=== PATIENT | female | born 1975 | race Caucasian/White ===

== ENCOUNTER 2016-09-19 19:52 | Inpatient (IN) | payer OTHER, MEDICARE ==
[~2016-09-19] VITALS: Ht 167.6 cm; Wt 75.8 kg
--- NOTE | 2016-09-19 20:00 | NUR ---
PT TO ROOM1 BIBA FROM HOME FOR UNRESPONSIVNESS, PT WAS FOUND BY FAMILY, UNKNOWN TIME LAST SEEN NORMAL. WHEN [facility] ARIIVED PT WAS UNRESPONSIVE, BG 25, PT RECEIVED DEXTROSE 25G IV BY [facility]. ARRIVED TO ER UNRESPONSIVE, O2SAT 88% ON NON-REBREATHER. MD MONTSE AT BEDSIDE FOR PT EVAL. HX OF DIABETES.
--- NOTE | 2016-09-19 20:01 | NUR ---
PT MEDICATED WITH NARCAN 2MG IV WITH NO EFFECT. DECISION TO INTUBATE.
--- NOTE | 2016-09-19 20:04 | NUR ---
MD ADRIENNE AND RESP TEAM AT BEDSIDE FOR INTUBATION.
--- NOTE | 2016-09-19 20:16 | NUR ---
PT INTUBATED BY MD ADRIENNE, TUBE #7, TAPED AT 24 TO RIGHT SIDE. CRAMER PLACED, 300ML OF CLEAR YELLOW URINE OBTAINED, SAMPLE SENT TO LAB. BLOOD DRAWN AND SENT TO LAB-2SST,2LAV,CARMNE,BLUE,PINK, 1ST BC. RAD TO BEDSIDE FOR CHEST XRAY.
--- NOTE | 2016-09-19 20:20 | NUR ---
PT TO CAT SCAN
--- NOTE | 2016-09-19 20:21 | ED CRITICAL CARE ---
History of Present Illness General Chief Complaint: General Adult Stated Complaint: UNRESPONSIVE Source: EMS Exam Limitations: clinical condition Vital Signs & Intake/Output Vital Signs & Intake/Output Vital Signs Date Time Temp Pulse Resp B/P B/P Pulse O2 O2 Flow FiO2 Mean Ox Delivery Rate 09/195 109 16 155/78 100 Ventilator /2220 97.4 118 16 163/85 100 Ventilator 05/2203 50 05/0 122 20 141/87 99 Ventilator 05/2113 97.6 123 20 161/89 99 Ventilator 05/2044 50 05/2043 116 20 148/85 99 Ventilator 05/1955 98.3 120 16 168/77 76 Non 100% ReBreather Allergies Coded Allergies: ciprofloxacin (From [facility]) (UNKNOWN 09/19/16) Reconcile Medications Unable to Obtain Home Medication History Triage Note: PT TO ROOM1 BIBA FROM HOME FOR UNRESPONSIVNESS, PT WAS FOUND BY FAMILY, UNKNOWN TIME LAST SEEN NORMAL. Triage Nurses Notes Reviewed? yes Onset: Abrupt Timing: single episode today Injury Environment: home Severity: severe Associated Symptoms: UNRESPONSIVE : No Patient currently breastfeeds: No HPI: 41 year old female found unresponsive at home. Per EMS family called police to do a well check and they found her in severe distress. Last time well is unknown. She was found to be hypoglycemic and given dextrose. Reported history of DM. She was not intubated in the field. Patient obtunded, only responsive to painful stimuli in ED. Not protecting her airway. No reponsive to 2mg IV narcan. Decision made to intubate. Past History Travel History Traveled to [place] past 21 day No Medical History Any Pertinent Medical History? see below for history Endocrine: diabetes Surgical History Surgical History: unobtainable Psychosocial History What is your primary language German Tobacco Use: Refused to answer Illicit Drug Use: unobtainable Family History Hx Contributory? No Review of Systems Review of Systems Constitutional: Reports: see HPI (unobtainable). Physical Exam Physical Exam General Appearance: severe distress, obese, obtunded Head: atraumatic Eyes: Bilateral: other (DILATED, REACTIVE). Neck: normal inspection Respiratory: rhonchi Cardiovascular: tachycardia Peripheral Pulses: 1+ radial (R), 1+ radial (L) Gastrointestinal: soft, no organomegaly Back: normal inspection Extremities: NO MOVEMENT Neurologic/Psych: UNRESPONSIVE, WITHDRAWS FROM PAIN Skin: COOL Core Measures ACS in differential dx? Yes ASA ordered for poss ACS? No-ACS ruled out CVA/TIA Diagnosis: No Severe Sepsis Present: Yes Septic Shock Present: No Progress Differential Diagnoses I considered the following diagnoses in my evaluation of the patient: [cva, respiratory failure, drug overdose, suicide attempt, sepsis, ASPIRATION pneumonia, chf, ] Plan of Care: Orders Procedure Date/time Status Nothing by Mouth 09/20 B Active Patient Data 09/19 2210 Active EKG 09/19 2153 Active Admit to inpatient 09/19 2149 Active Vital Signs 09/19 2149 Active Code Status 09/19 2149 Active Add-on Test (ER Only) 09/19 2121 Active Add-on Test (ER Only) 09/19 2112 Active URINALYSIS 09/19 2110 Complete Add-on Test (ER Only) 09/19 2109 Active BLOOD CULTURE 09/19 2056 Active LOWER RESPIRATORY CULTURE 09/19 2048 Active FingerStick- Glucose 09/20 2027 Active ACETOMINOPHEN 09/19 2024 Complete SALICYLATE 09/19 2024 Complete PHOSPHORUS 09/19 2024 Complete MAGNESIUM 09/19 2024 Complete LACTIC ACID 09/19 2024 Complete HUMAN BETA HCG SCREEN 09/19 2024 Complete CREATINE PHOSPHOKINASE 09/19 2024 Complete EKG 09/19 2009 Active ARTERIAL BLOOD GAS (GEN) 09/19 1958 Active Ho, Insertion/Removal/Asses 09/19 1958 Active CULTURE,URINE 09/19 1958 Active URINE DRUG SCREEN FOR ER ONLY 09/19 1958 Complete TROPONIN LEVEL 09/19 1958 Complete ETHANOL 09/19 1958 Complete COMPREHENSIVE METABOLIC PANEL 09/19 1958 Complete CBC WITHOUT DIFFERENTIAL 09/19 1958 Complete ACETONE 09/19 1958 Complete Current Medications Sig/Yaniv Start time Last Medication Dose Stop Time Status Admin Sodium Chloride 1,000 ML ONCE ONE 09/19 2114 AC 09/19 (Normal Saline 0.9%) 09/20 Laboratory Tests 09/19/162144: pH 7.57 H, pCO2 31 L, pO2 82, HCO3 27, ABG O2 Sat (Measured) 94.0 L, P-50 ( Temp Corrected) N, Carboxyhemoglobin 2.5, O2 Concentration % 50%, Temperature 97.6, Respiration Rate 20, O2 Delivery Method ESPRIT VENT, Vent Mode AC, Expiratory Pressure 5, Tidal Volume 450, Phlebotomy Draw Site RIGHT RADIAL 09/19/162110: Methadone Screen Cancelled, Barbiturate Screen Cancelled, Ur Phencyclidine Scrn Cancelled, Amphetamines Screen Cancelled, U Benzodiazepines Scrn Cancelled, Urine Cocaine Screen Cancelled, Urine Cannabis Screen Cancelled 09/19/162041: Urine Opiates Screen > 4000.00 H, Methadone Screen < 40, Barbiturate Screen < 60, Ur Phencyclidine Scrn < 6.00, Amphetamines Screen < 100, U Benzodiazepines Scrn > 800 H, Urine Cocaine Screen < 50, Urine Cannabis Screen 5.90, Urinalysis MOD H, Urine Color YEL, Urine Clarity CLEAR, Urine pH 7.0, Ur Specific Rector 1.010, Urine Protein NEG, Urine Ketones NEG, Urine Nitrite POS H, Urine Bilirubin NEG, Urine Urobilinogen 0.2, Ur Leukocyte Esterase NEG, Ur Microscopic SEDIMENT EXAMINED, Urine RBC 3-5, Urine WBC 1-3 H, Ur Epithelial Cells RARE, Urine Bacteria FEW H, Urine Hemoglobin MOD H, Urine Glucose NEG 09/19/162024: Anion Gap 18 H, Estimated GFR > 60, BUN/Creatinine Ratio 18.0, Glucose 106 H, Lactic Acid 3.9 H, Calcium 9.1, Phosphorus 4.4, Magnesium 1.9, Total Bilirubin 0.8, AST 42 H, ALT 27, Alkaline Phosphatase 91, Creatine Kinase 135, Troponin I 0.04, Total Protein 7.3, Albumin 3.9, Globulin 3.4, Albumin/Globulin Ratio 1.1, Total Beta HCG NEGATIVE, CBC w Diff MAN DIFF ORDERED, RBC 6.85 H, MCV 82.5, MCH 26.5 L, RDW 17.6 H, MPV 9.1, Gran % 94.5 H, Lymphocytes % 2.3 L, Monocytes % 3.2, Eosinophils % 0, Basophils % 0 L, Absolute Granulocytes 30.9 H, Absolute Lymphocytes 0.8 L, Absolute Monocytes 1.0 H, Absolute Eosinophils 0, Absolute Basophils 0, Platelet Estimate ADEQUATE, Poikilocytosis 2+, Stomatocytes 2+, PUBS MCHC 32.1 L, Salicylates < 1.0, Acetaminophen < 10.0 L, Serum Alcohol < 10.0, Acetone Level NEGATIVE Microbiology 09/19 2129 BLOOD: Blood Culture - RECD 09/19 2041 URINE ROUT: Urine Culture - RECD 09/20 2039 LOWER RESP: Respiratory Culture - RES 09/20 2039 LOWER RESP: Gram Stain - RES 09/19 2014 BLOOD: Blood Culture - RECD Diagnostic Imaging: Viewed by Me: Radiology Read, CT Scan. Discussed w/RAD: Radiology Read, CT Scan. Radiology Impression: PATIENT: RO MELTON PRESENT AGE: 41 PATIENT ACCOUNT NO: [id number] : 76 LOCATION: [facility] ORDERING PHYSICIAN: PAO CONNOR MD SERVICE DATE: 09/19/16 EXAM TYPE: CAT - CT HEAD WO IV CONTRAST EXAMINATION: CT HEAD WITHOUT CONTRAST CLINICAL INFORMATION: Unresponsive. Leftward gaze deviation. COMPARISON: MRI brain 2010. TECHNIQUE: Contiguous axial imaging was performed from the skull base to vertex without intravenous administration of contrast. DLP: 701 mGy-cm FINDINGS: Noncontrast CT imaging of the brain demonstrates diffuse loss of pablo-white matter differentiation within the bilateral cerebral hemispheres, suspicious for underlying anoxic brain injury. No acute intracranial hemorrhage, mass or mass effect or abnormal extra-axial fluid collections are identified. The ventricles are normal in size, without hydrocephalus. The basilar cisterns appear to be grossly patent. No acute calvarial abnormality is identified. The imaged paranasal sinuses and mastoid air cells are well aerated. IMPRESSION: Diffuse loss of pablo-white matter differentiation and diffuse sulcal effacement within the bilateral cerebral hemispheres, concerning for global anoxic brain injury. No acute intracranial hemorrhage, mass or mass effect or abnormal extra-axial fluid collections. This critical result was discussed with Dr. Pao Connor at 10:33 PM on 09/19/2016 and it was ascertained that the content and urgency of the report was understood at the time of direct communication. DICTATED BY: JEEVAN MACHUCA MD DATE/TIME DICTATED:09/19/162225 VEGETABLES COOK:COLIN DATE/TIME TRANSCRIBED:09/19/162225 CONFIDENTIAL, DO NOT COPY WITHOUT APPROPRIATE AUTHORIZATION. <Electronically signed in Other Vendor System> SIGNED BY: JEEVAN MACHUCA MD 09/19/162236, PATIENT: RO MELTON PRESENT AGE: 41 PATIENT ACCOUNT NO: [id number] : 77 LOCATION: [facility] ORDERING PHYSICIAN: PAO CONNOR MD SERVICE DATE: 09/19/162020 EXAM TYPE: CAT - CT ABD & PELVIS W/O IV CONTRAS; CT CHEST WO IV CONTRAST EXAMINATION: CT CHEST WITHOUT CONTRAST CT ABDOMEN PELVIS WITHOUT CONTRAST CLINICAL INFORMATION: Unresponsive COMPARISON: None TECHNIQUE: Multidetector volumetric CT imaging of the chest, abdomen and pelvis was done. Axial MIP volume rendering provided. Sagittal and coronal reformatted images were obtained. DLP: 634.37 mGy-cm FINDINGS: LUNGS: There are bilateral multilobar reticulonodular pulmonary airspace disease, involving the bilateral upper lobes , lingula, right middle lobe, right lower lobe and to lesser extent in the left lower lobe. No pleural effusions. No pneumothorax. MEDIASTINUM: Normal cardiac size. No pericardial effusion. The thoracic aorta and pulmonary arteries are normal in diameter. An endotracheal tube is in place with its tip located about 2.4 cm above the maureen. An enteric tube in place with its tip in the stomach. There is no mediastinal, hilar or axillary adenopathy seen on this noncontrast CT scan. LIVER, GALLBLADDER, AND BILIARY TREE: The noncontrast images of the abdomen demonstrate the liver is normal in size, shape, and attenuation. No focal hepatic lesion or biliary ductal dilatation is present. The gallbladder is unremarkable with no evidence of radiopaque gallstones, gallbladder wall thickening, or obvious pericholecystic inflammatory changes. PANCREAS: Unremarkable. SPLEEN: Unremarkable. ADRENAL GLANDS: Unremarkable. KIDNEYS AND URETERS: The kidneys are normal in size, shape, and attenuation. No hydronephrosis, hydroureter, or calculi seen. No perinephric stranding. BLADDER: The urinary bladder is empty in the presence of indwelling catheter. GASTROINTESTINAL TRACT: The stomach, duodenum, small and large bowel are unremarkable. The appendix is not definitely visualized, however there are no inflammatory changes to suggest acute appendicitis. ABDOMINAL WALL: No significant hernia is appreciated. LYMPH NODES: Normal. VASCULAR: Scattered atherosclerotic calcifications of abdominal aorta and iliac arteries noted. No aneurysmal dilatation. PELVIC VISCERA: The uterus and adnexa are unremarkable. OSSEOUS STRUCTURES: Postsurgical changes at L3-L4 and L4-L5 intervertebral disc spaces with disc spacers in place. There is a 14 mm lytic bony lesion with some sclerotic borders, involving the T5 vertebral body. The finding is better seen on coronal image 80 and sagittal image 64 and axial image 167 from series 4. IMPRESSION: 1. There are endotracheal tube, enteric tube and a Ho catheter in place. 2. Diffuse bilateral multilobar pulmonary airspace disease, can represent pneumonia. Clinical correlation suggested. 3. No acute intra-abdominal findings. 4. A 14 mm bony lesion involving the T5 vertebral body. Its etiology is unclear based on these images. Consider further bone scan evaluation when patient's clinical condition permits. DICTATED BY: REBEKAH SANDOVAL MD DATE/TIME DICTATED: 09/19/162211 VEGETABLES COOK:COLIN DATE/TIME TRANSCRIBED:09/19/162211 CONFIDENTIAL, DO NOT COPY WITHOUT APPROPRIATE AUTHORIZATION. <Electronically signed in Other Vendor System> SIGNED BY: REBEKAH SANDOVAL MD 09/19/162245 Initial ED EKG: SINUS TACHYCARDIA, T WAVE INVERSIONS INFERIOR LEADS Comments: PATIENT: RO MELTON PRESENT AGE: 41 PATIENT ACCOUNT NO: [id number] : 77 LOCATION: [facility] ORDERING PHYSICIAN: PAO CONNOR MD SERVICE DATE: 09/19/16 EXAM TYPE: CAT - CT ABD & PELVIS W/O IV CONTRAS; CT CHEST WO IV CONTRAST EXAMINATION: CT CHEST WITHOUT CONTRAST CT ABDOMEN PELVIS WITHOUT CONTRAST CLINICAL INFORMATION: Unresponsive COMPARISON: None TECHNIQUE: Multidetector volumetric CT imaging of the chest, abdomen and pelvis was done. Axial MIP volume rendering provided. Sagittal and coronal reformatted images were obtained. DLP: 634.37 mGy-cm FINDINGS: LUNGS: There are bilateral multilobar reticulonodular pulmonary airspace disease, involving the bilateral upper lobes, lingula, right middle lobe, right lower lobe and to lesser extent in the left lower lobe. No pleural effusions. No pneumothorax. MEDIASTINUM: Normal cardiac size. No pericardial effusion. The thoracic aorta and pulmonary arteries are normal in diameter. An endotracheal tube is in place with its tip located about 2.4 cm above the maureen. An enteric tube in place with its tip in the stomach. There is no mediastinal, hilar or axillary adenopathy seen on this noncontrast CT scan. LIVER, GALLBLADDER, AND BILIARY TREE: The noncontrast images of the abdomen demonstrate the liver is normal in size, shape, and attenuation. No focal hepatic lesion or biliary ductal dilatation is present. The gallbladder is unremarkable with no evidence of radiopaque gallstones, gallbladder wall thickening, or obvious pericholecystic inflammatory changes. PANCREAS: Unremarkable. SPLEEN: Unremarkable. ADRENAL GLANDS: Unremarkable. KIDNEYS AND URETERS: The kidneys are normal in size, shape, and attenuation. No hydronephrosis, hydroureter, or calculi seen. No perinephric stranding. BLADDER: The urinary bladder is empty in the presence of indwelling catheter. GASTROINTESTINAL TRACT: The stomach, duodenum, small and large bowel are unremarkable. The appendix is not definitely visualized, however there are no inflammatory changes to suggest acute appendicitis. ABDOMINAL WALL: No significant hernia is appreciated. LYMPH NODES: Normal. VASCULAR: Scattered atherosclerotic calcifications of abdominal aorta and iliac arteries noted. No aneurysmal dilatation. PELVIC VISCERA: The uterus and adnexa are unremarkable. OSSEOUS STRUCTURES: Postsurgical changes at L3-L4 and L4-L5 intervertebral disc spaces with disc spacers in place. There is a 14 mm lytic bony lesion with some sclerotic borders, involving the T5 vertebral body. The finding is better seen on coronal image 80 and sagittal image 64 and axial image 167 from series 4. IMPRESSION: 1. There are endotracheal tube, enteric tube and a Ho catheter in place. 2. Diffuse bilateral multilobar pulmonary airspace disease, can represent pneumonia. Clinical correlation suggested. 3. No acute intra-abdominal findings. 4. A 14 mm bony lesion involving the T5 vertebral body. Its etiology is unclear based on these images. Consider further bone scan evaluation when patient's clinical condition permits. DICTATED BY: REBEKHA SANDOVAL MD DATE/TIME DICTATED:09/19/162211 VEGETABLES COOK:COLIN DATE/TIME TRANSCRIBED:09/19/162211 CONFIDENTIAL, DO NOT COPY WITHOUT APPROPRIATE AUTHORIZATION. <Electronically signed in Other Vendor System> SIGNED BY: REBEKAH SANDOVAL MD 09/19/16 3370 Departure Departure Disposition: STILL A PATIENT Condition: Critical Clinical Impression Primary Impression: Respiratory failure Secondary Impressions: Anoxic brain injury, Aspiration pneumonia Referrals: BARBARA VALERIO MD (PCP/Family) Departure Forms: Customer Survey General Discharge Information Prescriptions: Current Visit Scripts Unable to Obtain Home Medication History Admission Note Spoke With: JENS RUFFIN MD Documentation of Exam: Documentation of any treatments & extenuating circumstances including Concerns Regarding Discharge (functional status, medication knowledge or non-compliance, living conditions, etc.) that warrant an admission rather than observation: [ MECHANICAL VENTILATION, ICU MONITOR, IV ABX, NEURO CONSULTATION, MONITOR I/O, F/ U CULTURES, ATTEMPT TO GAIN MORE INFORMATION FROM FAMILY, ] Procedures Intubation Time of Intubation: 2028 Intubation Method: orotracheal Tube Size (cm): 7.0 Medications: succinylcholine, versed Breath Sounds After Intubation: equal Post Intubation Xray? Yes Critical Care Note Critical Care Note Critical Care Time: 75-104 min
--- NOTE | 2016-09-19 20:44 | NUR ---
PT RETURNED FROM CAT SCAN, RESP AT BEDSIDE TO SET UP VENTILATOR.
[2016-09-19 20:59] LABS: ABSOLUTE BASOPHIL COUNT 0 /CUMM (0.0-0.2); ABSOLUTE EOSINOPHIL COUNT 0 /CUMM (0.0-0.7); BASOPHIL % 0 % (0.0-2.0); EOSINOPHIL % 0 % (0-5); MEAN CORPUSCULAR HGB CONC 32.1 G/DL (33.0-37.0)
[2016-09-19 21:08] LABS: ABSOLUTE GRANULOCYTE CT 30.9 /CUMM (1.4-6.5); ABSOLUTE LYMPH COUNT 0.8 /CUMM (1.2-3.4); GRANULOCYTE % 94.5 % (42.2-75.2); HEMATOCRIT 56.5 % (37-47); MEAN CORPUSCULAR HGB 26.5 PG (27.0-31.0); MEAN CORPUSCULAR VOLUME 82.5 FL (81.0-99.0); MEAN PLATELET VOLUME 9.1 FL (7.4-10.4); PLATELET COUNT 368 /CUMM (130-400); RBC DISTRIBUTION WIDTH 17.6 % (11.5-14.5); RED BLOOD CELL CT 6.85 /CUMM (4.20-5.40)
[2016-09-19 21:12] LABS: WHITE BLOOD CELL COUNT 32.8 /CUMM (4.8-10.8)
--- NOTE | 2016-09-19 21:15 | NUR ---
CRITICAL TEST RESULTS [id number] RO MELTON 41 F TESTS AND RESULTS: WBC 32.8 Results received and read back by: VAN BURNS Results received date and time: 09/19/162114 The following provider was notified of the results, and read the results back: MD ADRIENNE Notified date and time: 09/19/16 at 5
--- NOTE | 2016-09-19 21:30 | NUR ---
2ND BC OBTAINED AND SENT TO LAB.
--- NOTE | 2016-09-19 21:47 | NUR ---
CRITICAL TEST RESULTS [id number] RO MELTON 41 F TESTS AND RESULTS: LACTIC ACID 3.9 Results received and read back by: VAN BURNS Results received date and time: 09/19/162146 The following provider was notified of the results, and read the results back: DR DELEON Notified date and time: 09/19/16 at 0
--- NOTE | 2016-09-19 21:48 | NUR ---
NS INFUSING AT 150ML/HR. RESP AT BEDSIDE FOR ABG.
--- NOTE | 2016-09-19 22:15 | NUR ---
[facility] INFUSING PER EMAR. PHARMACY CALLED FOR NARCAN DRIP.
--- NOTE | 2016-09-19 22:37 | CT SCAN REPORT ---
EXAMINATION: CT HEAD WITHOUT CONTRAST CLINICAL INFORMATION: Unresponsive. Leftward gaze deviation. COMPARISON: MRI brain 04/17/2011. TECHNIQUE: Contiguous axial imaging was performed from the skull base to vertex without intravenous administration of contrast. DLP: 701 mGy-cm FINDINGS: Noncontrast CT imaging of the brain demonstrates diffuse loss of pablo-white matter differentiation within the bilateral cerebral hemispheres, suspicious for underlying anoxic brain injury. No acute intracranial hemorrhage, mass or mass effect or abnormal extra-axial fluid collections are identified. The ventricles are normal in size, without hydrocephalus. The basilar cisterns appear to be grossly patent. No acute calvarial abnormality is identified. The imaged paranasal sinuses and mastoid air cells are well aerated. IMPRESSION: Diffuse loss of pablo-white matter differentiation and diffuse sulcal effacement within the bilateral cerebral hemispheres, concerning for global anoxic brain injury. No acute intracranial hemorrhage, mass or mass effect or abnormal extra-axial fluid collections. This critical result was discussed with Dr. Pao Connor at 10:33 PM on 09/19/2016 and it was ascertained that the content and urgency of the report was understood at the time of direct communication.
--- NOTE | 2016-09-19 22:46 | CT SCAN REPORT ---
EXAMINATION: CT CHEST WITHOUT CONTRAST CT ABDOMEN PELVIS WITHOUT CONTRAST CLINICAL INFORMATION: Unresponsive COMPARISON: None TECHNIQUE: Multidetector volumetric CT imaging of the chest, abdomen and pelvis was done. Axial MIP volume rendering provided. Sagittal and coronal reformatted images were obtained. DLP: 634.37 mGy-cm FINDINGS: LUNGS: There are bilateral multilobar reticulonodular pulmonary airspace disease, involving the bilateral upper lobes, lingula, right middle lobe, right lower lobe and to lesser extent in the left lower lobe. No pleural effusions. No pneumothorax. MEDIASTINUM: Normal cardiac size. No pericardial effusion. The thoracic aorta and pulmonary arteries are normal in diameter. An endotracheal tube is in place with its tip located about 2.4 cm above the maureen. An enteric tube in place with its tip in the stomach. There is no mediastinal, hilar or axillary adenopathy seen on this noncontrast CT scan. LIVER, GALLBLADDER, AND BILIARY TREE: The noncontrast images of the abdomen demonstrate the liver is normal in size, shape, and attenuation. No focal hepatic lesion or biliary ductal dilatation is present. The gallbladder is unremarkable with no evidence of radiopaque gallstones, gallbladder wall thickening, or obvious pericholecystic inflammatory changes. PANCREAS: Unremarkable. SPLEEN: Unremarkable. ADRENAL GLANDS: Unremarkable. KIDNEYS AND URETERS: The kidneys are normal in size, shape, and attenuation. No hydronephrosis, hydroureter, or calculi seen. No perinephric stranding. BLADDER: The urinary bladder is empty in the presence of indwelling catheter. GASTROINTESTINAL TRACT: The stomach, duodenum, small and large bowel are unremarkable. The appendix is not definitely visualized, however there are no inflammatory changes to suggest acute appendicitis. ABDOMINAL WALL: No significant hernia is appreciated. LYMPH NODES: Normal. VASCULAR: Scattered atherosclerotic calcifications of abdominal aorta and iliac arteries noted. No aneurysmal dilatation. PELVIC VISCERA: The uterus and adnexa are unremarkable. OSSEOUS STRUCTURES: Postsurgical changes at L3-L4 and L4-L5 intervertebral disc spaces with disc spacers in place. There is a 14 mm lytic bony lesion with some sclerotic borders, involving the T5 vertebral body. The finding is better seen on coronal image 80 and sagittal image 64 and axial image 167 from series 4. IMPRESSION: 1. There are endotracheal tube, enteric tube and a Ho catheter in place. 2. Diffuse bilateral multilobar pulmonary airspace disease, can represent pneumonia. Clinical correlation suggested. 3. No acute intra-abdominal findings. 4. A 14 mm bony lesion involving the T5 vertebral body. Its etiology is unclear based on these images. Consider further bone scan evaluation when patient's clinical condition permits.
--- NOTE | 2016-09-19 22:48 | NUR ---
BED ASSIGNMENT 104-1
--- NOTE | 2016-09-19 23:29 | NUR ---
REPORT CALLED TO BELIN[facility] CARD TO ICU.
[2016-09-20] VITALS: BP 90/60
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
--- NOTE | 2016-09-20 01:03 | RADIOLOGY REPORT ---
EXAMINATION: XR PORTABLE CHEST CLINICAL INFORMATION: Intubated. Orogastric tube position. COMPARISON: 09/19/2016 TECHNIQUE: Portable frontal view of the chest was obtained. FINDINGS: The endotracheal tube terminates approximately 5 cm above the maureen. The enteric tube extends into the stomach, with the side-port in the stomach. Cardiac leads overlie the chest. Patchy opacities are seen in the right upper lung. The other opacity seen on the recent chest CT are not as well-defined. No pleural effusion or pneumothorax. The cardiomediastinal silhouette is within normal limits. IMPRESSION: 1. Endotracheal tube 5 cm above the maureen. Enteric tube terminates in the stomach. 2. Patchy right upper lung airspace opacity, as seen on prior CT. The remaining airspace opacity seen on the CT are not as well-defined on the current radiograph.
[2016-09-20 04:55] LABS: ABSOLUTE BASOPHIL COUNT 0 /CUMM (0.0-0.2); ABSOLUTE EOSINOPHIL COUNT 0 /CUMM (0.0-0.7); ABSOLUTE GRANULOCYTE CT 29.3 /CUMM (1.4-6.5); ABSOLUTE LYMPH COUNT 1.7 /CUMM (1.2-3.4); ABSOLUTE MONOCYTE COUNT 0 /CUMM (0.10-0.60); BASOPHIL % 0 % (0.0-2.0); EOSINOPHIL % 0.1 % (0-5); GRANULOCYTE % 94.2 % (42.2-75.2); MEAN CORPUSCULAR HGB 27.1 PG (27.0-31.0); MEAN CORPUSCULAR HGB CONC 32.9 G/DL (33.0-37.0); MEAN CORPUSCULAR VOLUME 82.3 FL (81.0-99.0); MEAN PLATELET VOLUME 8.9 FL (7.4-10.4); PLATELET COUNT 253 /CUMM (130-400); RBC DISTRIBUTION WIDTH 17.3 % (11.5-14.5); RED BLOOD CELL CT 5.48 /CUMM (4.20-5.40)
--- NOTE | 2016-09-20 05:02 | Admission Certification ---
Admission Certification Certification Statement - As attending physician, I certify that at the time of - admission, based on clinical presentation, severity of - symptoms, need for further diagnostic testing and - therapeutic interventions, and risk of adverse outcomes - without in-hospital treatment, in my clinical assessment, - this patient requires an acute hospital stay for a minimum - of two nights or longer. I have also considered psychsocial - factors such as support system, advanced age, financial - issues, cognitive issues, and failed out-patient treatments, - past re-admission history, safety of patient, and lack of - compliance as applicable. Specific rationale supporting this admission is: Acute respiratory failure, coma
[2016-09-20 05:23] LABS: HEMATOCRIT 45.1 % (37-47); WHITE BLOOD CELL COUNT 31.1 /CUMM (4.8-10.8)
--- NOTE | 2016-09-20 07:44 | RADIOLOGY REPORT ---
EXAMINATION: XR PORTABLE CHEST CLINICAL INFORMATION: Intubation. COMPARISON: Chest x-ray dated 09/20/2016. CT scan of the chest dated 09/19/2016. TECHNIQUE: Portable AP erect view of the chest was obtained. FINDINGS: Endotracheal tube is in place with tip 6 cm above the maureen. Enteric tube courses into the abdomen with tip not fully visualized. The cardiomediastinal silhouette is within normal limits in size. Low lung volumes are seen with persistent patchy parenchymal opacity in the right upper lobe and to a lesser extent in the left upper lobe and right lower lobe. No effusion or pneumothorax is seen. Bony structures are unremarkable. IMPRESSION: 1. Multifocal lung parenchymal opacities again noted, unchanged. 2. Endotracheal tube tip 6 cm above the maureen. 3. Enteric tube tip not fully visualized but extends into the left upper quadrant.
[2016-09-20 08:00] VITALS: BP 102/72
--- NOTE | 2016-09-20 08:56 | Cons- CRCU ---
JULIUS ADAM 09/20/16 0856: General Information and HPI Consulting Request Date of Consult: 09/20/16 Requested By: Dr. Ozuna Exam Limitations: unable to give history, clinical condition History of Present Illness: She is 41-year-old woman with past medical history of diabetes, hypertension, gastroparesis and depression was BIBA after she was found unresponsive at home. She takes care of her quadriplegic who has also been admitted on general medicine floor for possible neglect and UTI. did not provide much information to admitting team but said that she was not feeling well for past 2 weeks and throwing up. Police found her obtunded, on couch covered in her own vomitus. Blood sugar 25 at site and she was given 25G of iv dextrose by EMS. Vitals on arrival afebrile, HR 120, RR 16, blood pressure 168/77, O2 saturation 88% on nonrebreather. She was given 2 mg IV Narcan without any effect and was immediately intubated in ER. Currently she is intubated and unable to provide any history. Allergies/Medications Allergies: Coded Allergies: ciprofloxacin (From CIPRO) (UNKNOWN 09/19/16) Current Medications: Current Medications Sig/Yaniv Start time Last Medication Dose Route Stop Time Status Admin Albuterol Sulfate 3 ML BID 09/20 2200 AC 09/20 INH 1209 Ampicillin Sodium/ 1,500 MG Q6 09/20 0600 AC 09/20 Sulbactam Sodium IV 1210 Sodium Chloride 100 ML Ampicillin Sodium/ 0 .STK-MED ONE 09/19 2145 DC Sulbactam Sodium .ROUTE Ampicillin Sodium/ 3,000 MG ONCE ONE 09/19 2029 DC 09/19 Sulbactam Sodium IV 09/19 2058 2130 Sodium Chloride 100 ML Dextrose 25 GM ONCE ONE 09/20 0030 DC 09/20 IV 09/20 0031 0015 Dextrose/Sodium 1,000 ML Q10H 09/20 1145 AC / Chloride IV 1210 Dextrose/Sodium 1,000 ML Q13H 09/20 0030 AC / Chloride IV 0053 Enoxaparin Sodium 40 MG DAILY 09/21 1000 AC SC Etomidate 0 .STK-MED ONE 09/19 2048 DC IV Etomidate 20 MG ONCE ONE 09/19 2029 DC 05 IV 09/19 Levetiracetam 750 MG Q12 05/ 1000 AC 05/ Sodium Chloride 100 ML IV 1210 Magnesium Sulfate 1 GM Q2H 09/20 0530 DC 09/20 Dextrose/Water 100 ML IV 09/20 0929 0831 Midazolam HCl 5 MG ONCE ONE 09/19 2030 DC 05/06 IV 09/19 Naloxone HCl 4 MG Q24H / 0900 DC Sodium Chloride 1,000 ML IV Naloxone HCl 0.4 MG ONCE ONE 09/20 0845 DC 05/ IV 09/20 0846 0830 Naloxone HCl 4 MG Q24H / 2130 DC Dextrose/Water 1,000 ML IV Naloxone HCl 0 .STK-MED ONE 09/19 2000 DC .ROUTE Naloxone HCl 2 MG ONCE ONE 09/20 1999 DC 09/19 IV 09/19 Pantoprazole Sodium 40 MG DAILY 09/20 1000 DC IV Pantoprazole Sodium 40 MG BID / 1000 AC / IV 1122 Potassium Chloride 10 MEQ Q1H 09/20 0530 DC 09/20 IV 09/20 0631 0714 Potassium Chloride 60 MEQ ONCE ONE 09/20 0030 DC 05/ PO / 0031 0537 Potassium Chloride 10 MEQ Q1H / 2345 DC 05/ IV 09/20 0046 0214 Potassium Chloride 10 MEQ ONCE ONE 09/19 2200 DC 05/ IV / 2201 2215 Potassium Phosphate 15 mMol ONE ONE 09/20 0530 CAN Sodium Chloride 250 ML IV / 0933 Sodium Chloride 1,000 ML ONCE ONE 09/20 0615 AC 05/ IV 09/20 1254 0645 Sodium Chloride 1,000 ML BOLUS ONE 09/20 0600 CAN IV 09/20 0659 Sodium Chloride 500 ML BOLUS ONE 09/20 0315 CAN IV / 0414 Sodium Chloride 1,000 ML BOLUS ONE 09/20 0315 DC 05/ IV / 0414 0320 Sodium Chloride 1,000 ML Q13H / 0015 DC IV Sodium Chloride 1,000 ML BOLUS ONE 09/19 2200 DC 05/ IV / 2259 2157 Sodium Chloride 1,000 ML ONCE ONE 09/19 2115 DC 05/06 IV 05/07 0354 2148 Sodium Phosphate 15 mMol ONCE ONE 09/20 0615 DC 05/07 Dextrose/Water 250 ML IV 05/ 1014 1122 Succinylcholine 100 MG ONCE ONE 09/19 2029 DC /06 Chloride IV 09/19 Vecuronium [place] 0 .STK-MED ONE 09/19 2048 DC IV Vecuronium [place] 10 MG ONCE ONE 09/19 2029 DC 05/06 IV /2030 Review of Systems Review of Systems Constitutional: Reports: see HPI. Past History Travel History Traveled to [place] past 21 day No Medical History Endocrine: diabetes Surgical History Surgical History: laminectomy Psychosocial History Where Do You Live? Home Smoking Status: Former Smoker Exam & Diagnostic Data Last 24 Hrs of Vital Signs/I&O Vital Signs Date Time Temp Pulse Resp B/P B/P Pulse O2 O2 Flow FiO2 Mean Ox Delivery Rate 09/20 0832 40 09/20 0545 40 09/20 0400 98 Ventilator 40% 09/20 0304 40 09/20 0005 50 05/ 0000 99 Ventilator 50% / 0000 97.8 109 16 90/60 99 Ventilator 50% / 2311 99.6 114 16 131/77 100 Ventilator / 2245 109 16 155/78 100 Ventilator / 2221 97.4 118 16 163/85 100 Ventilator 05/06 2204 50 05/06 2200 122 20 141/87 99 Ventilator /06 2114 97.6 123 20 161/89 99 Ventilator /06 5 50 05/06 2044 116 20 148/85 99 Ventilator /06 1956 98.3 120 16 168/77 76 Non 100% ReBreather Intake & Output 09/20 1600 09/20 0800 05/ 0000 Intake Total 1933 1000 Output Total 904 Balance 1029 1000 Intake, IV 1933 1000 Number 1 Bowel Movements Output, 650 Gastric Drainage Output, Urine 254 Patient 168 lb Weight Weight Bed scale Measurement Method Physical Exam General Appearance: intubated, OG tube in place Head: normal appearance Eyes: Bilateral: other (fixed and dilated). Neck: supple Respiratory: decreased breath sounds, crackles Cardiovascular: regular rate/rhythm Gastrointestinal: soft Extremities: no edema Neurologic/Psych: extremities twitching. complete neuro exam could not be done because of clinical condition Last 48 Hrs of Labs/[place]: Laboratory Tests 09/20/16 1155: Troponin I Pending 09/20/16 1155: Lactic Acid Pending 09/20/16 1155: Sodium Pending, Potassium Pending, Chloride Pending, Carbon Dioxide Pending, Anion Gap Pending, BUN Pending, Creatinine Pending, Glucose Pending, Calcium Pending, Phosphorus Pending, Magnesium Pending, Total Bilirubin Pending, AST Pending, ALT Pending, Albumin Pending, CBC w Diff Pending, WBC Pending, RBC Pending, Hgb Pending, Hct Pending, MCV Pending, MCH Pending, RDW Pending, Plt Count Pending, MPV Pending, PUBS MCHC Pending 09/20/16 0745: Lactic Acid 2.3 H 09/20/16 0700: pH 7.52 H, pCO2 35, pO2 96, HCO3 28, ABG O2 Sat (Measured) 98.0, P-50 (Temp Corrected) N, Carboxyhemoglobin 1.0 L, O2 Concentration % .40, Respiration Rate 16, O2 Delivery Method VENT, Vent Mode A/C, Expiratory Pressure 8, Tidal Volume 450, Phlebotomy Draw Site RIGHT RADIAL 09/20/16 0600: Sodium Cancelled, Potassium Cancelled, Chloride Cancelled, Carbon Dioxide Cancelled, Anion Gap Cancelled, BUN Cancelled, Creatinine Cancelled, BUN/ Creatinine Ratio Cancelled 09/20/16 0430: Troponin I 0.05 09/20/16 0430: Anion Gap 11, Estimated GFR > 60, Glucose 87, Calcium 7.5 L, Phosphorus 3.4, Magnesium 1.6, Total Bilirubin 0.8, AST 48 H, ALT 28, Albumin 2.5 L, CBC w Diff NO MAN DIFF REQ, RBC 5.48 H, MCV 82.3, MCH 27.1, RDW 17.3 H, MPV 8.9, Gran % 94.2 H, Lymphocytes % 5.6 L, Monocytes % 0.1 L, Eosinophils % 0.1, Basophils % 0 L, Absolute Granulocytes 29.3 H, Absolute Lymphocytes 1.7, Absolute Monocytes 0 L, Absolute Eosinophils 0, Absolute Basophils 0, PUBS MCHC 32.9 L 09/20/16 0145: pH 7.54 H, pCO2 34 L, pO2 114 H, HCO3 28, ABG O2 Sat (Measured) 99.0, P-50 ( Temp Corrected) N, Carboxyhemoglobin 1.5, O2 Concentration % .50, Respiration Rate 16, O2 Delivery Method VENT, Vent Mode A/C, Expiratory Pressure 8, Tidal Volume 450, Phlebotomy Draw Site RIGHT RADIAL 09/20/16 0130: Lactic Acid 3.3 H 09/19/162144: pH 7.57 H, pCO2 31 L, pO2 82, HCO3 27, ABG O2 Sat (Measured) 94.0 L, P-50 ( Temp Corrected) N, Carboxyhemoglobin 2.5, O2 Concentration % 50%, Temperature 97.6, Respiration Rate 20, O2 Delivery Method ESPRIT VENT, Vent Mode AC, Expiratory Pressure 5, Tidal Volume 450, Phlebotomy Draw Site RIGHT RADIAL 09/19/162110: Methadone Screen Cancelled, Barbiturate Screen Cancelled, Ur Phencyclidine Scrn Cancelled, Amphetamines Screen Cancelled, U Benzodiazepines Scrn Cancelled, Urine Cocaine Screen Cancelled, Urine Cannabis Screen Cancelled 09/19/162041: Urine Opiates Screen > 4000.00 H, Methadone Screen < 40, Barbiturate Screen < 60, Ur Phencyclidine Scrn < 6.00, Amphetamines Screen < 100, U Benzodiazepines Scrn > 800 H, Urine Cocaine Screen < 50, Urine Cannabis Screen 5.90, Urinalysis MOD H, Urine Color YEL, Urine Clarity CLEAR, Urine pH 7.0, Ur Specific [place] 1.010, Urine Protein NEG, Urine Ketones NEG, Urine Nitrite POS H, Urine Bilirubin NEG, Urine Urobilinogen 0.2, Ur Leukocyte Esterase NEG, Ur Microscopic SEDIMENT EXAMINED, Urine RBC 3-5, Urine WBC 1-3 H, Ur Epithelial Cells RARE, Urine Bacteria FEW H, Urine Hemoglobin MOD H, Urine Glucose NEG 09/19/162024: Anion Gap 18 H, Estimated GFR > 60, BUN/Creatinine Ratio 18.0, Glucose 106 H, Lactic Acid 3.9 H, Calcium 9.1, Phosphorus 4.4, Magnesium 1.9, Total Bilirubin 0.8, AST 42 H, ALT 27, Alkaline Phosphatase 91, Creatine Kinase 135, Troponin I 0.04, Total Protein 7.3, Albumin 3.9, Globulin 3.4, Albumin/Globulin Ratio 1.1, Total Beta HCG NEGATIVE, CBC w Diff MAN DIFF ORDERED, RBC 6.85 H, MCV 82.5, MCH 26.5 L, RDW 17.6 H, MPV 9.1, Gran % 94.5 H, Lymphocytes % 2.3 L, Monocytes % 3.2, Eosinophils % 0, Basophils % 0 L, Absolute Granulocytes 30.9 H, Absolute Lymphocytes 0.8 L, Absolute Monocytes 1.0 H, Absolute Eosinophils 0, Absolute Basophils 0, Platelet Estimate ADEQUATE, Poikilocytosis 2+, Stomatocytes 2+, PUBS MCHC 32.1 L, Salicylates < 1.0, Acetaminophen < 10.0 L, Serum Alcohol < 10.0, Acetone Level NEGATIVE Assessment/Plan Impression/Plan: She is 41-year-old woman with past medical history of diabetes, hypertension, gastroparesis and depression was BIBA after she was found unresponsive and covered in her vomitus at home. She was admitted in ICU for acute hypoxic respiratory failure secondary to most likely Drug overdose (she was taking valium, morphine and flexerel at home), possible aspiration pneumonia, hypoglycemia and anoxic brain injury. Currently she is intubated and completely unresponsive. She started having muscular twitching and seizure this morning and she was started on Keppra. She is also getting IV fluids, Unasyn and PPIs. PLAN * Monitor vitals closely. We'll continue mechanical ventilation * Continue IV fluids, PPI and antibiotics * Follow-up blood and urine cultures * Accu-Cheks every 2 hours * Neuro consult * Monitor electrolytes closely and replete accordingly * Seizure precautions * Aspiration precautions * Continue IV Keppra * Trend lactic acid * Prognosis poor Consult Acknowledgment - Thank you for your consult request. AUGUSTIN MIRZA,[facility] 09/20/16 0901: Assessment/Plan Other Findings/Comments: Seen and examined independently History unobtainable Exam as noted above Vital signs reviewed Blood sugars have been more than 90 since admission Pupils were dilated not responding Nystagmus noted Neck was supple no JVD Chest decreased breath sounds with crackles Abdominal exam soft nontender very faint bowel sounds No cyanosis clubbing Orogastric tube did show bloody discharge Neurological exam patient unresponsive even to deep painful stimuli pupils as noted above was having myoclonic jerks on both sides not moving any extremities she did have some decorticate posture at times noted patient does have a cough reflex and does have spontaneous breathing Significant data reviewed This is an unfortunate 41-year-old lady with history of diabetes, previous gastroparesis, hypertension, chronic low back pain with previous laminectomy, GERD, urinary incontinence, patient was apparently on morphine and diazepam every month, significant smoking history. History as noted in the history and physical. Patient apparently was not found to be response to 2 husbands call and she was unresponsive for unknown period of time. IMPRESSION This is a lady with multiple medical problems including diabetes, complications from diabetes including gastroparesis per history, but pressure history, chronic low back pain, migraine, urinary incontinence, GERD, narcotic use and benzodiazepine use followed by pain Center per the history noted in the house staff's note now comes in with Significant decreased mental status with comatose condition with profound hypoglycemia now with significant anoxic brain injury as noted in the CAT scan and physical exam. Patient did not really respond to Narcan. Differential diagnoses include hypoglycemia from her diabetes medication versus benzodiazepine overdose versus narcotic overdose intentionally on a nonintentional is unknown at this time. Vomiting with aspiration pneumonia leading to hypoxic brain injury as well as a possibility Respiratory failure related to severe anoxic brain injury Significant vomiting upon admission or prior to admission with aspiration pneumonitis History of diabetes, hypertension, significant hypokalemia, gastroparesis Previous history of low back pain and depression 14 mm bony lesion and T5 vertebral body which needs to be followed in the future Previous narcotic use Significant history of gastroparesis now with the coffee ground material coming from orogastric tube in a lady with previous history of gastroparesis REC Continue mechanical ventilator Narcan drip for 1-2 hours to see whether there is any response and then subsequently will discontinue Continue D5 normal saline at 100 mL an hour Check her sodium and potassium again in the next 4 hours to make sure that she does not go through hyponatremia to prevent brain edema Check fingerstick every 2 hours Watch for any seizure Neurology evaluation If her OG tube secretions turned more bloody call GI to see Watch her hemoglobin and hematocrit Aggressively replace potassium intravenously with 2 large-bore IVs Please put in 2 large-bore IVs for fluid resuscitation Keep the head of bed elevated Aggressive oral suctioning Reduce PEEP to 5 Continue current mechanical ventilator settings and check ABG this evening to keep her pH around 7.50 Watch blood glucose and only cover with low-dose short-acting insulin if the sugar is more than 200-300 consistently. Periodex oral care 3 times a day We will follow. Patient is critically ill total time spent 60 minutes. Not an appropriate candidate for hypothermia protocol as data is very limited in patients like her Consult Acknowledgment - Thank you for your consult request.
--- NOTE | 2016-09-20 09:13 | NUR ---
11-7 SHIFT NOTE 0000 UNRESPONSIVE PATIENT ADMITTED TO CRCU 104 FROM ER VIA STRETCHER, PUPILS EQUAL AT 6MM AND SLUGGISHLY REACTIVE TO LIGHT- WHITISH HAZE REFLECTION NOTED TO LIGHT, ? CATARACTS, POSTURING OF UPPER EXTREMITIES NOTED IN RESPONSE TO STIMULI- LUE MORE THAN RUE, ETT TO VENTILATOR AY FIO2 50%- CONTINUOUS O2 SAT 99 TO 100%, COPIOUS ORAL SECRETIONS SUCTIONED PRN, BREATHE SOUNDS UPPER CHAVEZ RHONCHORUS- R>L, CLEAR AT BASES, ABDOMEN DISTENDED BUT SOFT- OGT TO LOW INTERMITTENT WALL SUCTION- LARGE AMTS LIQUID BROWN DRAINAGE NOTED, ACCOUNT SERVICE REPRESENTATIVE SINUS TACHYCARDIA WITH HEART RATE 100 TO 110'S/MIN, CRAMER TO GRAVITY DRAINAGE WITH CLEAR MARCUS COLORED UO NOTED 0015 ACCUCHECK <50 - DR MCKEON NOTIFIED, ONE AMP D50 GIVEN IV ORDERED 1.75 INCH X .75 INCH BLANCHABLE OVALS NOTED AT TOP OF RIGHT AND LEFT BUTTOCKS- SPECIALTY BED IN USE, WHITE METAL NIPPLE AND CLITORIS PIERCINGS IN PLACE, DR MCKEON IN AT BEDSIDE- DR AWARE OF SYSTOLIC BP 90-100/ 0030 PORTABLE CXR DONE TO CHECK ETT AND OGT PLACEMENT 0045 REPEAT ACCUCHECK 180, NO FAMILY/FRIENDS PRESENT ON CRCU ADMISSION, LIMITED INFORMATION AVAILABLE FROM MD NOTES, ADMISSION QUESTIONNAIRES COMPLETED WITHIN LIMITATIONS [address] BROUSSARD- HAS STATED THAT BLANCHABLE AREAS TO BUTTOCKS PALER THAN WHEN PATIENT SEEN IN ER, DR AWARE OF PATIENT'S CURRENT STATUS- ONE LITER NS TO BE GIVEN IV BOLUS DUE TO POOR UO 0530 AM LABWORK RESULTS REPORTED TO DR MCKEON- PATIENT TO RECEIVE POTASSIUM AND MAGNESIUM REPLACEMENTS ORDERED PLUS INCREASED IV FLUIDS 0630 REPEAT ABG'S AND CXR DONE, PUPILS AT 4MM AND FIXED THIS AM, POSTURING OF UPPER EXTREMITIES HAS LESSENED GREATLY, AWAITING AM MD ROUNDS
[2016-09-20 12:00] VITALS: BP 110/60
[2016-09-20 12:15] LABS: ABSOLUTE BASOPHIL COUNT 0 /CUMM (0.0-0.2); ABSOLUTE EOSINOPHIL COUNT 0 /CUMM (0.0-0.7); ABSOLUTE GRANULOCYTE CT 22.5 /CUMM (1.4-6.5); ABSOLUTE LYMPH COUNT 1.8 /CUMM (1.2-3.4); ABSOLUTE MONOCYTE COUNT 0.7 /CUMM (0.10-0.60); BASOPHIL % 0.1 % (0.0-2.0); EOSINOPHIL % 0 % (0-5); HEMATOCRIT 42.6 % (37-47); MEAN CORPUSCULAR HGB 26.6 PG (27.0-31.0); MEAN CORPUSCULAR HGB CONC 32.5 G/DL (33.0-37.0); MEAN CORPUSCULAR VOLUME 81.8 FL (81.0-99.0); PLATELET COUNT 250 /CUMM (130-400); RBC DISTRIBUTION WIDTH 17.5 % (11.5-14.5); RED BLOOD CELL CT 5.21 /CUMM (4.20-5.40)
--- NOTE | 2016-09-20 13:41 | Cons- Neurology ---
General Information and HPI Consulting Request Date of Consult: 09/20/16 Requested By: MINA FENG MD History of Present Illness: 41 year old female with history of diabetes, hypertension, chronic low back pain and depression who was found down covered in vomit. Initial blood sugar was felt to be less than 25. Brief seizure activity was reported and patient has been started on Keppra. Toxicology is positive for opioids and benzodiazepines. CAT scan of the brain shows loss of the pablo-white junction concerning for global hypoxia. History is obtained entirely from the chart as the patient is comatose. Per , she had been suffering from nausea and diminished oral intake over the course of several weeks. Allergies/Medications Allergies: Coded Allergies: ciprofloxacin (From CIPRO) (UNKNOWN 09/19/16) Review of Systems Review of Systems: Unobtainable Past History Travel History Traveled to [place] past 21 day No Medical History Cardiovascular: hypertension Gastrointestinal: GERD, GASTROPARESIS Renal: URINARY INCONTINENCE Musculoskeletal: CHRONIC LOWER BACK PAIN Endocrine: diabetes Surgical History Surgical History: laminectomy Psychosocial History Where Do You Live? Home Smoking Status: Current Everyday Smoker Exam & Diagnostic Data Vital Signs and I&O Vital Signs Date Time Temp Pulse Resp B/P B/P Pulse O2 O2 Flow FiO2 Mean Ox Delivery Rate 09/20 1222 Ventilator 35% 09/20 1220 35 / 0832 40 / 0545 40 / 0400 98 Ventilator 40% 09/20 0304 40 05/ 0005 50 05/07 0000 99 Ventilator 50% 05/07 0000 97.8 109 16 90/60 99 Ventilator 50% 05/ 2311 99.6 114 16 131/77 100 Ventilator 05/ 2245 109 16 155/78 100 Ventilator 05/06 2221 97.4 118 16 163/85 100 Ventilator 05/06 2204 50 05/06 2200 122 20 141/87 99 Ventilator 05/06 2114 97.6 123 20 161/89 99 Ventilator 05/06 2045 50 05/06 2044 116 20 148/85 99 Ventilator 05/06 1956 98.3 120 16 168/77 76 Non 100% ReBreather Intake & Output 09/20 1600 09/20 0800 05/07 0000 Intake Total 1933 1000 Output Total 904 Balance 1029 1000 Intake, IV 1933 1000 Number 1 Bowel Movements Output, 650 Gastric Drainage Output, Urine 254 Patient 168 lb Weight Weight Bed scale Measurement Method Middle-aged intubated female in the intensive care unit. The head was normocephalic and atraumatic. There was no response to verbal command or sternal rub. Pupils were 3 mm, equal but poorly reactive. Corneal reflexes were present. The oculocephalic reflex was present. There were no spontaneous movements of the extremities. Bilateral Babinski signs were present. Assessment/Plan Assessment: The clinical picture suggests hypoxic encephalopathy with coma partially impaired brainstem reflexes and bilateral Babinski signs. Brief seizure activity was reported. Recommendations: Supportive care for present. Would avoid all sedative hypnotics. EEG should be performed tomorrow for consideration of nonconvulsive status. Continue Keppra. Prognosis guarded. I have preliminarily discussed our findings with her sister and [id number] at the bedside. Neurology will be able to follow along with the ICU team. Please feel free to call with any further questions. Consult Acknowledgment - Thank you for your consult request.
--- NOTE | 2016-09-20 15:12 | Event Note ---
Event Note Event Note: S: Establishing next of care of patient. This afternoon it was mentioned that the patient's may not legally be her . Although the patient and her who is currently admitted in the general medicine service did have a ceremony it is unclear whether this has been legally registered. B: The sister of the patient who lives in [place] arrived this morning and was really concerned about the state of her sister. A/R: After spending considerable amount of time with the patient's sister Jennifer and Urban,it appears that if the patient was legally not , the next of kin would technically be her sister. She's been informed of progress and updated on current management. Sister and Brother in Law, Urban and Jennifer Keenan can be reached on: [phone].
[2016-09-20 16:00] VITALS: BP 162/84
[2016-09-20 20:00] VITALS: BP 144/78
[2016-09-21] VITALS: BP 126/70; BP 189/80
--- NOTE | 2016-09-21 03:30 | NUR ---
0000 REC'D PT IN BED REMAINS UNRESPONSIVE & INTUBATED. VENTED ON AC MODE W/RATE 14/ VT 450/FIO2 35%/PEEP 5. POX 96-100%, LS CLEAR & DIMINISHED AT BASES. SCANT AMT OF [place]UMMOND SECRETIONS VIA ETT. ORALLY SUCTIONED/MOUTH CARE DONE. MOUTH BLOCK IN PLACE. ST ON THE MONITOR HR 110-120'S, SBP VARIES AUTO 120-180'S & CORRELATING TO BOTH CUFFS. BUT WHEN PT STIFFENS/POSTURING SBP TENDS TO INCREASE. NO PURPOSEFUL MOVT. BABINSKI+VE. PUPILS FIXED DILATED 6MM. FC INSITU & DRAINING BORDERLINE U/O OF MARCUS IN COLOR. OGT INSITU & DRAINING COFFEE GROUND D/C IN THE CANNISTER. K 2.3 PHOS 3.3, REPLETED W/K & NA PHOS IV BOLUS. ANY PHYSICAL T&P PT STARTS TO POSTURE/DECORATE ON A TOTAL CARE BED W/ROTATIONAL MODE. ACCUCHECK Q2HR @0000-245 & [address] MCKEON RE. PT'S STATUS/VS. ORDERS FOR INSULIN COVERAGE SEE EMAR. 0330 CALLED [employer] & SPOKE TO BILL THE COORDINATOR. WILL CALL BACK.
[2016-09-21 06:48] LABS: ABSOLUTE BASOPHIL COUNT 0 /CUMM (0.0-0.2); ABSOLUTE EOSINOPHIL COUNT 0 /CUMM (0.0-0.7); ABSOLUTE GRANULOCYTE CT 17.5 /CUMM (1.4-6.5); ABSOLUTE LYMPH COUNT 1.9 /CUMM (1.2-3.4); ABSOLUTE MONOCYTE COUNT 0.7 /CUMM (0.10-0.60); BASOPHIL % 0.2 % (0.0-2.0); EOSINOPHIL % 0.2 % (0-5); GRANULOCYTE % 86.6 % (42.2-75.2); HEMATOCRIT 39.7 % (37-47); MEAN CORPUSCULAR HGB 27.2 PG (27.0-31.0); MEAN CORPUSCULAR HGB CONC 32.7 G/DL (33.0-37.0); MEAN CORPUSCULAR VOLUME 83.1 FL (81.0-99.0); MEAN PLATELET VOLUME 9.1 FL (7.4-10.4); PLATELET COUNT 220 /CUMM (130-400); RBC DISTRIBUTION WIDTH 18.3 % (11.5-14.5); RED BLOOD CELL CT 4.78 /CUMM (4.20-5.40); WHITE BLOOD CELL COUNT 20.2 /CUMM (4.8-10.8)
--- NOTE | 2016-09-21 06:56 | PN- Resident CRCU ---
Subjective HPI/CRCU Issues: Ms Bowen was seen and examined this morning. She is resting comfortably in bed. She is currently intubated today is day two. Sister has been at bedside overnight. 24 Hour Events: No Events Reported ovenight. Objective Vital Signs & I&O Last 8 Hrs of Vitals and I&O: Intake & Output 09/21 1600 Intake Total 1370 Output Total 450 Balance 920 Intake, IV 1370 Number 1 Bowel Movements Output, Urine 450 Patient 75.835 kg Weight Exam General Appearance: well developed/nourished, no apparent distress, comfortable, intubated Neck: normal inspection Respiratory: normal breath sounds Cardiovascular: regular rate/rhythm Gastrointestinal: normal bowel sounds, soft, non-tender Extremities: normal inspection Cranial Nerves: PERRL (Sluggish), Corneal Reflex + Gag Reflex present on suction , Babinski +, Dolls Eyes Intact Skin: intact Skin Temp/Moisture Exam: Warm/Dry Current Medications: Current Medications Sig/Yaniv Start time Last Medication Dose Route Stop Time Status Admin Albuterol Sulfate 3 ML BID 09/20 2200 AC 09/21 INH 0922 Ampicillin Sodium/ 1,500 MG Q6 09/20 0600 AC /08 Sulbactam Sodium IV 1307 Sodium Chloride 100 ML Dextrose/Sodium 1,000 ML Q10H 09/20 1145 DC 05/07 Chloride IV 1210 Dextrose/Sodium 1,000 ML Q13H / 0030 DC 05/07 Chloride IV 0053 Enoxaparin Sodium 40 MG DAILY / 1000 AC 05/08 SC 0916 Insulin Aspart 0 Q4 09/21 1000 DC SC Insulin Aspart 2 UNITS ONCE ONE 09/21 0215 DC 05/08 SC 09/21 0216 0215 Insulin Human Regular 0 Q4 05/08 1400 AC 05/08 SC 1044 Levetiracetam 750 MG Q12 /07 1000 AC 05/08 Sodium Chloride 100 ML IV 1044 Pantoprazole Sodium 40 MG BID 05/07 1000 AC 05/08 IV 0916 Potassium Chloride 40 MEQ Q16H / 1100 AC 05/08 Dextrose/Sodium 1,000 ML IV 1051 Chloride Potassium Chloride 40 MEQ Q13H / 1045 DC Dextrose/Sodium 1,000 ML IV Chloride Potassium Chloride 10 MEQ Q1H 09/21 0745 DC 05/08 IV 09/21 0846 0959 Potassium Chloride 10 MEQ Q1H 05/07 2315 DC 05/08 IV 05/08 0116 0307 Potassium Chloride 10 MEQ Q1H 05/07 1830 DC 05/07 IV 05/07 1931 2022 Potassium Chloride 40 MEQ Q10H 05/07 1830 DC 05/08 Dextrose/Sodium 1,000 ML IV 0559 Chloride Sodium Phosphate 15 mMol ONE ONE 09/21 0900 DC 05/08 Sodium Chloride 250 ML IV 05/ 1303 1120 Sodium Phosphate 15 mMol ONE ONE 09/20 2330 DC 05/08 Sodium Chloride 250 ML IV 05/08 0333 0033 CXR Findings: IMPRESSION: 1. Endotracheal tube tip approximately 6 cm above the maureen. 2. Enteric tube in upper abdomen, beyond field of view of this exam. 3. No significant change in bilateral upper and lower lobe parenchymal opacities compared to prior chest x-ray from 09/20/2016. Impression/Plan Impression/Problem List Impression: Ms Bowen is a 41 year old female with past medical history of diabetes, hypertension, gastroparesis and depression who was BIBA after she was found unresponsive and covered in her vomitus at home on 09/19/2016. She was admitted in ICU for closer monitoring. Today's is day 2 of admission. #Altered mental status status post hypoxic encephalopathy as a result of medication overdose. Limited response to Narcan on 09/20/2016. Urine positive for opiates and benzodiazepine. Neurologist on board. EEG is currently pending. IV Protonix. #Brief seizure Continue IV Keppra. Continue aggressive electrolyte replacement. #Acute hypoxic respiratory failure secondary anoxic brain injury. (she was taking valium, morphine and flexerel at home), Continue intubation. Repeat chest x-ray in a.m. while intubated. IV fluids reduced to 60 mL per hour. PEEP reduced to 5. Last AB.52/31.95/25 #Possible aspiration pneumonia, White count this am 20.2. Continue Unasyn. Follow Cultures and sensitivities, Gram stain shows mixed marisol after 2 days. Patient afebrile. #History of diabetes. Fingerstick this a.m. was 240-->228-->150 Tube feedings today after nutrition consultation was obtained. If sugars remain uncontrollable over the next 24 hours consider endocrinology consult in a.m. Maintain blood sugar between 140 to 180. #Positive urine culture Greater than 100 000 colonies per mL. Gram-positive cocci. Identification and susceptibilities to follow. Consider coverage if WBC remains persistently elevated #DVT prophylaxis ALP S #Diet Currently nothing by mouth #Code full Code Problem List: 1. Anoxic brain injury 2. Aspiration pneumonia 3. Respiratory failure Pain Ratin Tomorrow's Labs & Rationales: CBC ICU Bundle. Plan DVT/Prophylaxis: mechanical
[2016-09-21 08:00] VITALS: BP 184/96
--- NOTE | 2016-09-21 10:00 | NUR ---
Patient remains unarousable and unresponsive- becomes rigid/postural with any tactile stimulation to her upper and lower extremities. Pupils are 4mm and sluggish. + Babinski. On IV Keppra for seizure activity- EEG is scheduled for 1300. ST on tele monitor, HR= 100-130's. SBP: 170-190's. Remains intubated with a #7 to the right at 24cm, Lungs clear with some scant rhonchi noted. A moderate amount of thick cabrera secretions noted when suctioning. Bite block is in place. Scant amounts of thin clear secretions noted orally. Vent settings currently AC 14/450/35/5. Episodes where respiratory rate will increase up to the 30's. OGT in place to low wall suction with scant amounts of light brown output. Abdomen is distended and soft with absent bowel sounds. Nutritional consult to be ordered and to be started on Tube feedings- history of gastroparesis. Last BM 09/20. Ho in place draining clear yellow urine with adequate output. A 4 X 3 c, red and blanchable area is noted to her upper bilateral buttocks and coccyx- Abrasions and excoriation also noted to this area- Patient was found on her couch unresponsive for an unknown period of time- It is important to consider that deep tissue injuries can take as long as 72 hours to surface- Barrier cream applied to the area. Trace generalized edema is noted. No s/s of pain is currently noted. Dr. Brewer made aware of vitals and no interventions are currently needed. Patients sister at the bedside. Will continue to closely monitor patient.
--- NOTE | 2016-09-21 10:07 | PN- Pulmonary ---
Subjective HPI/Critical Care Issues: Still unresponsive Ongoing myoclonic jerks Seem to have vasomotor instability suggestive of significant brain stem injury Pupils appeared to be dilated not responding Dolls eye may be present Nonverbal unresponsive to significant painful stimuli On mechanical ventilator Objective Current Medications: Current Medications Sig/Yaniv Start time Last Medication Dose Route Stop Time Status Admin Albuterol Sulfate 3 ML BID 09/20 2200 AC /08 INH 0922 Ampicillin Sodium/ 1,500 MG Q6 09/20 0600 AC 05/08 Sulbactam Sodium IV 0600 Sodium Chloride 100 ML Dextrose/Sodium 1,000 ML Q10H 09/20 1145 DC 05/07 Chloride IV 1210 Dextrose/Sodium 1,000 ML Q13H / 0030 DC 05/ Chloride IV 0053 Enoxaparin Sodium 40 MG DAILY 09/21 1000 AC /08 SC 0916 Insulin Aspart 0 Q4 09/21 1000 AC SC Insulin Aspart 2 UNITS ONCE ONE 09/21 0215 DC 09/21 SC 09/21 0216 0215 Levetiracetam 750 MG Q12 / 1000 AC 05/07 Sodium Chloride 100 ML IV 2240 Pantoprazole Sodium 40 MG BID 09/20 1000 AC /08 IV 0916 Potassium Chloride 10 MEQ Q1H 09/21 0745 DC / IV 09/21 0846 0830 Potassium Chloride 10 MEQ Q1H 09/20 2315 DC / IV 09/21 0116 0307 Potassium Chloride 10 MEQ Q1H / 1830 DC 05/ IV / 1931 2022 Potassium Chloride 40 MEQ Q10H /07 1830 AC 05/08 Dextrose/Sodium 1,000 ML IV 0559 Chloride Potassium Chloride 10 MEQ Q1H /07 1315 DC 05/ IV 05/ 1416 1630 Sodium Chloride 1,000 ML ONCE ONE 09/20 0615 DC 05/07 IV 05/ 1254 0645 Sodium Phosphate 15 mMol ONE ONE 09/21 0900 AC Sodium Chloride 250 ML IV 09/21 1303 Sodium Phosphate 15 mMol ONE ONE 09/20 2330 DC 05/08 Sodium Chloride 250 ML IV / 0333 0033 Sodium Phosphate 15 mMol ONCE ONE / 0615 DC 05/ Dextrose/Water 250 ML IV 09/20 1014 1122 Laboratory Tests 09/21 04/08 05/07 0615 0530 2035 Blood Gas pH (7.35 - 7.45 PH) 7.52 H pCO2 (35 - 45 TORR) 31 L pO2 (80 - 100 TORR) 95 HCO3 (21 - 28 MEQ/L) 25 ABG O2 Sat (Measured) (>96.0 %) 98.0 P-50 (Temp Corrected) N Carboxyhemoglobin (1.5 - 5.0 %) 0.4 L O2 Concentration % .35 Respiration Rate (BPM) 14 O2 Delivery Method VENT Vent Mode A/C Expiratory Pressure (CMH2O/P) 5 Tidal Volume (CC) 450 Chemistry Sodium (137 - 145 mmol/L) 139 Potassium (3.5 - 5.1 mmol/L) 3.8 Chloride (98 - 107 mmol/L) 104 Carbon Dioxide (22 - 30 mmol/L) 27 Anion Gap (5 - 16) 7 BUN (7 - 17 mg/dL) 7 Creatinine (0.5 - 1.0 mg/dL) 0.5 Estimated GFR (>60 ml/min) > 60 Glucose (65 - 99 mg/dL) 193 H Lactic Acid (0.7 - 2.1 mmol/L) 1.8 Calcium (8.4 - 10.2 mg/dL) 7.4 L Phosphorus (2.5 - 4.5 mg/dL) 3.3 Magnesium (1.6 - 2.3 mg/dL) 2.1 Total Bilirubin (0.2 - 1.3 mg/dL) 0.7 AST (14 - 36 U/L) 49 H ALT (9 - 52 U/L) 32 Albumin (3.5 - 5.0 g/dL) 2.6 L Hematology CBC w Diff MAN DIFF ORDERED WBC (4.8 - 10.8 /CUMM) 20.2 H RBC (4.20 - 5.40 /CUMM) 4.78 Hgb (12.0 - 16.0 G/DL) 13.0 Hct (37 - 47 %) 39.7 MCV (81.0 - 99.0 FL) 83.1 MCH (27.0 - 31.0 PG) 27.2 RDW (11.5 - 14.5 %) 18.3 H Plt Count (130 - 400 /CUMM) 220 MPV (7.4 - 10.4 FL) 9.1 Gran % (42.2 - 75.2 %) 86.6 H Lymphocytes % (20.5 - 51.1 %) 9.6 L Monocytes % (1.7 - 9.3 %) 3.4 Eosinophils % (0 - 5 %) 0.2 Basophils % (0.0 - 2.0 %) 0.2 Absolute Granulocytes (1.4 - 6.5 /CUMM) 17.5 H Absolute Lymphocytes (1.2 - 3.4 /CUMM) 1.9 Absolute Monocytes (0.10 - 0.60 /CUMM) 0.7 H Absolute Eosinophils (0.0 - 0.7 /CUMM) 0 Absolute Basophils (0.0 - 0.2 /CUMM) 0 Platelet Estimate (ADEQUATE) ADEQUATE Normocytic RBCs VERIFIED Normochromic RBCs VERIFIED PUBS MCHC (33.0 - 37.0 G/DL) 32.7 L Miscellaneous Phlebotomy Draw Site RIGHT RADIAL 09/20 1830 1600 1600 Blood Gas pH (7.35 - 7.45 PH) 7.58 H pCO2 (35 - 45 TORR) 30 L pO2 (80 - 100 TORR) 85 HCO3 (21 - 28 MEQ/L) 28 ABG O2 Sat (Measured) (>96.0 %) 96.0 P-50 (Temp Corrected) N Carboxyhemoglobin (1.5 - 5.0 %) 0.8 L O2 Concentration % 35% Temperature (97.0 - 100.0 FARH) 99.6 Respiration Rate (BPM) 16 O2 Delivery Method ESPRIT Vent Mode AC Expiratory Pressure (CMH2O/P) 5 Tidal Volume (CC) 450 Chemistry Sodium (137 - 145 mmol/L) 138 140 Potassium (3.5 - 5.1 mmol/L) 3.3 L 2.6 *L Chloride (98 - 107 mmol/L) 101 100 Carbon Dioxide (22 - 30 mmol/L) 28 28 Anion Gap (5 - 16) 9 11 BUN (7 - 17 mg/dL) 8 8 Creatinine (0.5 - 1.0 mg/dL) 0.5 0.5 Estimated GFR (>60 ml/min) > 60 > 60 Glucose (65 - 99 mg/dL) 200 H 174 H Lactic Acid (0.7 - 2.1 mmol/L) 2.4 H Calcium (8.4 - 10.2 mg/dL) 7.0 L 7.3 L Phosphorus (2.5 - 4.5 mg/dL) 3.3 3.6 Magnesium (1.6 - 2.3 mg/dL) 2.3 2.3 Total Bilirubin (0.2 - 1.3 mg/dL) 0.6 0.5 AST (14 - 36 U/L) 51 H 52 H ALT (9 - 52 U/L) 33 35 Albumin (3.5 - 5.0 g/dL) 2.3 L 2.3 L Miscellaneous Phlebotomy Draw Site RIGHT RADIAL 09/20 09/20 09/20 1300 1155 1155 Chemistry Lactic Acid (0.7 - 2.1 mmol/L) 2.5 H Creatine Kinase (30 - 135 U/L) 230 H Troponin I (< 0.11 ng/ml) 0.04 Toxicology Urine Opiates Screen (>2000 NG/ML) 2086.00 H Methadone Screen (>300 NG/ML) < 40 Barbiturate Screen (>200 NG/ML) < 60 Ur Phencyclidine Scrn (>25 NG/ML) < 6.00 Amphetamines Screen (>1000 NG/ML) < 100 U Benzodiazepines Scrn (>200 NG/ML) > 800 H Urine Cocaine Screen (>300 NG/ML) < 50 Urine Cannabis Screen (>50 NG/ML) < 5.00 09/20 09/20 09/20 1155 0745 0700 Blood Gas pH (7.35 - 7.45 PH) 7.52 H pCO2 (35 - 45 TORR) 35 pO2 (80 - 100 TORR) 96 HCO3 (21 - 28 MEQ/L) 28 ABG O2 Sat (Measured) (>96.0 %) 98.0 P-50 (Temp Corrected) N Carboxyhemoglobin (1.5 - 5.0 %) 1.0 L O2 Concentration % .40 Respiration Rate (BPM) 16 O2 Delivery Method VENT Vent Mode A/C Expiratory Pressure (CMH2O/P) 8 Tidal Volume (CC) 450 Chemistry Sodium (137 - 145 mmol/L) 140 Potassium (3.5 - 5.1 mmol/L) 2.8 *L Chloride (98 - 107 mmol/L) 100 Carbon Dioxide (22 - 30 mmol/L) 30 Anion Gap (5 - 16) 10 BUN (7 - 17 mg/dL) 9 Creatinine (0.5 - 1.0 mg/dL) 0.5 Estimated GFR (>60 ml/min) > 60 Glucose (65 - 99 mg/dL) 144 H Lactic Acid (0.7 - 2.1 mmol/L) 2.3 H Calcium (8.4 - 10.2 mg/dL) 7.4 L Phosphorus (2.5 - 4.5 mg/dL) 3.1 Magnesium (1.6 - 2.3 mg/dL) 2.5 H Total Bilirubin (0.2 - 1.3 mg/dL) 0.6 AST (14 - 36 U/L) 53 H ALT (9 - 52 U/L) 24 Albumin (3.5 - 5.0 g/dL) 2.4 L Hematology CBC w Diff NO MAN DIFF REQ WBC (4.8 - 10.8 /CUMM) 25.0 H RBC (4.20 - 5.40 /CUMM) 5.21 Hgb (12.0 - 16.0 G/DL) 13.9 Hct (37 - 47 %) 42.6 MCV (81.0 - 99.0 FL) 81.8 MCH (27.0 - 31.0 PG) 26.6 L RDW (11.5 - 14.5 %) 17.5 H Plt Count (130 - 400 /CUMM) 250 MPV (7.4 - 10.4 FL) 9.0 Gran % (42.2 - 75.2 %) 90.0 H Lymphocytes % (20.5 - 51.1 %) 7.0 L Monocytes % (1.7 - 9.3 %) 2.9 Eosinophils % (0 - 5 %) 0 Basophils % (0.0 - 2.0 %) 0.1 Absolute Granulocytes (1.4 - 6.5 /CUMM) 22.5 H Absolute Lymphocytes (1.2 - 3.4 /CUMM) 1.8 Absolute Monocytes (0.10 - 0.60 /CUMM) 0.7 H Absolute Eosinophils (0.0 - 0.7 /CUMM) 0 Absolute Basophils (0.0 - 0.2 /CUMM) 0 PUBS MCHC (33.0 - 37.0 G/DL) 32.5 L Miscellaneous Phlebotomy Draw Site RIGHT RADIAL 09/20 09/20 09/20 0600 0430 0430 Chemistry Sodium (137 - 145 mmol/L) Cancelled 135 L Potassium (3.5 - 5.1 mmol/L) Cancelled 2.5 *L Chloride (98 - 107 mmol/L) Cancelled 96 L Carbon Dioxide (22 - 30 mmol/L) Cancelled 28 Anion Gap (5 - 16) Cancelled 11 BUN (7 - 17 mg/dL) Cancelled 10 Creatinine (0.5 - 1.0 mg/dL) Cancelled 0.5 Estimated GFR (>60 ml/min) > 60 BUN/Creatinine Ratio Cancelled Glucose (65 - 99 mg/dL) 87 Calcium (8.4 - 10.2 mg/dL) 7.5 L Phosphorus (2.5 - 4.5 mg/dL) 3.4 Magnesium (1.6 - 2.3 mg/dL) 1.6 Total Bilirubin (0.2 - 1.3 mg/dL) 0.8 AST (14 - 36 U/L) 48 H ALT (9 - 52 U/L) 28 Troponin I (< 0.11 ng/ml) 0.05 Albumin (3.5 - 5.0 g/dL) 2.5 L Hematology CBC w Diff NO MAN DIFF REQ WBC (4.8 - 10.8 /CUMM) 31.1 *H RBC (4.20 - 5.40 /CUMM) 5.48 H Hgb (12.0 - 16.0 G/DL) 14.8 Hct (37 - 47 %) 45.1 MCV (81.0 - 99.0 FL) 82.3 MCH (27.0 - 31.0 PG) 27.1 RDW (11.5 - 14.5 %) 17.3 H Plt Count (130 - 400 /CUMM) 253 MPV (7.4 - 10.4 FL) 8.9 Gran % (42.2 - 75.2 %) 94.2 H Lymphocytes % (20.5 - 51.1 %) 5.6 L Monocytes % (1.7 - 9.3 %) 0.1 L Eosinophils % (0 - 5 %) 0.1 Basophils % (0.0 - 2.0 %) 0 L Absolute Granulocytes (1.4 - 6.5 /CUMM) 29.3 H Absolute Lymphocytes (1.2 - 3.4 /CUMM) 1.7 Absolute Monocytes (0.10 - 0.60 /CUMM) 0 L Absolute Eosinophils (0.0 - 0.7 /CUMM) 0 Absolute Basophils (0.0 - 0.2 /CUMM) 0 PUBS MCHC (33.0 - 37.0 G/DL) 32.9 L 09/20 09/20 09/19 09/19 0145 0130 2145 2111 Blood Gas pH (7.35 - 7.45 PH) 7.54 H 7.57 H pCO2 (35 - 45 TORR) 34 L 31 L pO2 (80 - 100 TORR) 114 H 82 HCO3 (21 - 28 MEQ/L) 28 27 ABG O2 Sat (Measured) (>96.0 %) 99.0 94.0 L P-50 (Temp Corrected) N N Carboxyhemoglobin (1.5 - 5.0 %) 1.5 2.5 O2 Concentration % .50 50% Temperature (97.0 - 100.0 FARH) 97.6 Respiration Rate (BPM) 16 20 O2 Delivery Method VENT ESPRIT VENT Vent Mode A/C AC Expiratory Pressure (CMH2O/P) 8 5 Tidal Volume (CC) 450 450 Chemistry Lactic Acid (0.7 - 2.1 mmol/L) 3.3 H Miscellaneous Phlebotomy Draw Site RIGHT RADIAL RIGHT RADIAL Toxicology Methadone Screen Cancelled Barbiturate Screen Cancelled Ur Phencyclidine Scrn Cancelled Amphetamines Screen Cancelled U Benzodiazepines Scrn Cancelled Urine Cocaine Screen Cancelled Urine Cannabis Screen Cancelled 09/19 Chemistry Sodium (137 - 145 mmol/L) 134 L Potassium (3.5 - 5.1 mmol/L) 3.0 L Chloride (98 - 107 mmol/L) 87 L Carbon Dioxide (22 - 30 mmol/L) 30 Anion Gap (5 - 16) 18 H BUN (7 - 17 mg/dL) 9 Creatinine (0.5 - 1.0 mg/dL) 0.5 Estimated GFR (>60 ml/min) > 60 BUN/Creatinine Ratio (7 - 25 %) 18.0 Glucose (65 - 99 mg/dL) 106 H Lactic Acid (0.7 - 2.1 mmol/L) 3.9 H Calcium (8.4 - 10.2 mg/dL) 9.1 Phosphorus (2.5 - 4.5 mg/dL) 4.4 Magnesium (1.6 - 2.3 mg/dL) 1.9 Total Bilirubin (0.2 - 1.3 mg/dL) 0.8 AST (14 - 36 U/L) 42 H ALT (9 - 52 U/L) 27 Alkaline Phosphatase (<127 U/L) 91 Creatine Kinase (30 - 135 U/L) 135 Troponin I (< 0.11 ng/ml) 0.04 Total Protein (6.3 - 8.2 g/dL) 7.3 Albumin (3.5 - 5.0 g/dL) 3.9 Globulin (1.9 - 4.2 gm/dL) 3.4 Albumin/Globulin Ratio (1.1 - 2.2 %) 1.1 Total Beta HCG (NEGATIVE) NEGATIVE Hematology CBC w Diff MAN DIFF ORDERED WBC (4.8 - 10.8 /CUMM) 32.8 *H RBC (4.20 - 5.40 /CUMM) 6.85 H Hgb (12.0 - 16.0 G/DL) 18.2 H Hct (37 - 47 %) 56.5 H MCV (81.0 - 99.0 FL) 82.5 MCH (27.0 - 31.0 PG) 26.5 L RDW (11.5 - 14.5 %) 17.6 H Plt Count (130 - 400 /CUMM) 368 MPV (7.4 - 10.4 FL) 9.1 Gran % (42.2 - 75.2 %) 94.5 H Lymphocytes % (20.5 - 51.1 %) 2.3 L Monocytes % (1.7 - 9.3 %) 3.2 Eosinophils % (0 - 5 %) 0 Basophils % (0.0 - 2.0 %) 0 L Absolute Granulocytes (1.4 - 6.5 /CUMM) 30.9 H Absolute Lymphocytes (1.2 - 3.4 /CUMM) 0.8 L Absolute Monocytes (0.10 - 0.60 /CUMM) 1.0 H Absolute Eosinophils (0.0 - 0.7 /CUMM) 0 Absolute Basophils (0.0 - 0.2 /CUMM) 0 Platelet Estimate (ADEQUATE) ADEQUATE Poikilocytosis 2+ Stomatocytes 2+ PUBS MCHC (33.0 - 37.0 G/DL) 32.1 L Toxicology Salicylates (0 - 20.0 mg/dL) < 1.0 Urine Opiates Screen (>2000 NG/ML) > 4000.00 H Methadone Screen (>300 NG/ML) < 40 Acetaminophen (10.0 - 30.0 ug/mL) < 10.0 L Barbiturate Screen (>200 NG/ML) < 60 Ur Phencyclidine Scrn (>25 NG/ML) < 6.00 Amphetamines Screen (>1000 NG/ML) < 100 U Benzodiazepines Scrn (>200 NG/ML) > 800 H Urine Cocaine Screen (>300 NG/ML) < 50 Urine Cannabis Screen (>50 NG/ML) 5.90 Serum Alcohol (<10 MG/DL) < 10.0 Acetone Level (NEGATIVE) NEGATIVE Urines Urinalysis MOD H Urine Color (YEL,AMB,STR) YEL Urine Clarity (CLEAR) CLEAR Urine pH (5.0 - 8.0) 7.0 Ur Specific [place] (1.001 - 1.035) 1.010 Urine Protein (NEG,<30 MG/DL) NEG Urine Ketones (NEG) NEG Urine Nitrite (NEG) POS H Urine Bilirubin (NEG) NEG Urine Urobilinogen (0.1 - 1.0 EU/dl) 0.2 Ur Leukocyte Esterase (NEG) NEG Ur Microscopic SEDIMENT EXAMINED Urine RBC (0 - 5 /HPF) 3-5 Urine WBC (0 - 2 /HPF) 1-3 H Ur Epithelial Cells (NONE,FEW) RARE Urine Bacteria (NEG/NONE) FEW H Urine Hemoglobin (NEG) MOD H Urine Glucose (N MG/DL) NEG Microbiology Date/Time Procedure - Status Source Growth 09/20 1300 Urine Culture - RES URINE ROUT 09/20 003 Surveillance Culture - RECD UPPER RESP 09/20 29 Surveillance Culture - RECD GI 09/19 2129 Blood Culture - RES BLOOD 09/19 2041 Urine Culture - RES URINE ROUT 09/20 2039 Respiratory Culture - RES LOWER RESP 09/20 2039 Gram Stain - RES LOWER RESP 09/19 2014 Blood Culture - RES BLOOD Vital Signs & I&O Last 24 Hrs of Vitals and I&O: Vital Signs Date Time Temp Pulse Resp B/P B/P Pulse O2 O2 Flow FiO2 Mean Ox Delivery Rate 09/22 799 98.3 121 18 184/96 98 Ventilator 35% 09/21 0749 35 09/21 0533 35 09/21 0400 96 Ventilator 35% 09/21 0244 35 09/21 0102 35 09/21 0000 98.0 124 14 189/80 100 Ventilator 35% 09/21 0000 100 Ventilator 35% 09/20 2238 35 09/21 1999 35 Ventilator 35% 09/21 1999 98.5 123 14 144/78 98 Ventilator 35% / 1930 35 09/20 1600 99.2 118 17 162/84 95 Ventilator 35% 09/20 1600 95 Ventilator 35% 09/20 1550 35 09/20 1420 35 09/20 1222 Ventilator 35% 09/20 1220 35 09/20 1200 96 Ventilator 35% 09/20 1200 99.0 116 17 110/60 96 Ventilator 35% Intake & Output 09/21 1600 09/21 0800 05 0000 Intake Total 1778 1774 Output Total 400 400 Balance 1378 1374 Intake, IV 1778 1744 Intake, Oral 0 0 Intake, Other 30 Number 0 0 Bowel Movements Output, 0 25 Gastric Drainage Output, Urine 400 375 Patient 167 lb Weight Impression/Plan Impression/Plan Impression/Plan: IMPRESSION This is a lady with multiple medical problems including diabetes, complications from diabetes including gastroparesis per history, but pressure history, chronic low back pain, migraine, urinary incontinence, GERD, narcotic use and benzodiazepine use followed by pain Center per the history noted in the house staff's note now comes in with * Significant decreased mental status with comatose condition with profound hypoglycemia now with significant anoxic brain injury as noted in the CAT scan and physical exam. Patient did not really respond to Narcan. Differential diagnoses include hypoglycemia from her diabetes medication versus benzodiazepine overdose versus narcotic overdose intentionally on a nonintentional is unknown at this time. Vomiting with aspiration pneumonia leading to hypoxic brain injury as well as a possibility * Respiratory failure related to severe anoxic brain injury * Sig vasomotor instablity prob due to brain stem issues * Significant vomiting upon admission or prior to admission with aspiration pneumonitis * History of diabetes, hypertension, significant hypokalemia, gastroparesis * Previous history of low back pain and depression * 14 mm bony lesion and T5 vertebral body which needs to be followed in the future * History of sig narcotic use * Significant history of gastroparesis now with the coffee ground REC Continue mechanical ventilator REduce ivf to 60 cc perhour Start tube feeding 10 cc per hour of jevity and increase as needed Check fingerstick every 4 hrs Watch for any seizure Neurology evaluation noted, pt to get eeg Keep the head of bed elevated, periodex oral care and ppi daily Aggressive oral suctioning Reduce PEEP to 5 Prog poor and discussed with pts sister and updated DVT prophylaxis We will follow. Patient is critically ill total time spent 40 minutes.
--- NOTE | 2016-09-21 14:36 | RADIOLOGY REPORT ---
EXAMINATION: XR PORTABLE CHEST CLINICAL INFORMATION: Patient intubated. Confirm ET tube. COMPARISON: CT chest dated 09/19/2016. X-ray portable chest dated 03/29/2008. TECHNIQUE: Portable AP semierect view of the chest was obtained. FINDINGS: Endotracheal tube is approximately 6 cm above the maureen. Enteric tube courses into the abdomen with tip extending beyond the [id number] of this exam. The cardiomediastinal silhouette is within normal limits in size allowing for technique of the exam. Low lung volumes are seen with some patchy parenchymal opacity in the lung bases bilaterally, right greater than left, similar to previous exam. There is also persistent patchy parenchymal opacity in the upper lobes bilaterally, right greater than left. Findings are not significantly changed compared to the prior chest x-ray and likely correspond to the multifocal parenchymal opacities seen on prior CT scan from 09/19/2016. No pleural effusion or pneumothorax is seen. Multilevel vertebral spurring is seen in the mid and lower thoracic spine. IMPRESSION: 1. Endotracheal tube tip approximately 6 cm above the maureen. 2. Enteric tube in upper abdomen, beyond field of view of this exam. 3. No significant change in bilateral upper and lower lobe parenchymal opacities compared to prior chest x-ray from 09/20/2016.
--- NOTE | 2016-09-21 15:00 | PN- Neurology ---
Subjective Subjective: 41 year old with drug overdose. Unresponsive with NCHCT illustrating loss of G/W differentiation. Sluggish cranial nerve reflexes yesterday. Some semi-voluntary movements. Review of Systems: no change Objective Vital Signs and I&Os Vital Signs Date Time Temp Pulse Resp B/P B/P Pulse O2 O2 Flow FiO2 Mean Ox Delivery Rate 09/21 1306 35 05/ 1200 96 Ventilator 35% / 1052 35 / 0800 98.3 121 18 184/96 98 Ventilator 35% 09/21 0800 98 Ventilator 35% / 0749 35 / 0533 35 / 0400 96 Ventilator 35% / 0244 35 / 0102 35 05/ 0000 98.0 124 14 189/80 100 Ventilator 35% 05/ 0000 100 Ventilator 35% / 2238 35 09/20 2000 35 Ventilator 35% /1999 98.5 123 14 144/78 98 Ventilator 35% / 1930 35 / 1600 99.2 118 17 162/84 95 Ventilator 35% 09/20 1600 95 Ventilator 35% / 1550 35 Intake & Output / 1600 / 0800 05/08 0000 05/ 1600 09/20 0800 05/ 0000 Intake Total 1778 1774 2752 1933 1000 Output Total 986 477 2927 904 Balance 1378 1374 1552 1029 1000 Intake, IV 1778 1744 2692 1933 1000 Intake, Oral 0 0 0 Intake, Other 30 60 Number 0 0 0 1 Bowel Movements Output, 0 25 700 650 Gastric Drainage Output, Urine 400 375 500 254 Patient 167 lb 167 lb 168 lb Weight Weight Bed scale Measurement Method Physical Exam: Unresponsive. Pupils are equal and reactive to light dose sluggish. Corneal reflexes are intact bilaterally. Response to gag reflex is preserved. Doll's eyes are intact. Moves to a stimuli. Draws to Babinski's. Toes bilaterally and High tone. No posturing. Current Medications: Current Medications Sig/Yaniv Start time Last Medication Dose Route Stop Time Status Admin Albuterol Sulfate 3 ML BID 09/20 2200 AC 09/21 INH 0922 Ampicillin Sodium/ 1,500 MG Q6 09/20 0600 AC 09/21 Sulbactam Sodium IV 1307 Sodium Chloride 100 ML Dextrose/Sodium 1,000 ML Q10H 09/20 1145 DC 05/07 Chloride IV 1210 Dextrose/Sodium 1,000 ML Q13H 09/20 0030 DC 05/07 Chloride IV 0053 Enoxaparin Sodium 40 MG DAILY 09/21 1000 AC 09/21 SC 0916 Insulin Aspart 0 Q4 09/21 1000 DC SC Insulin Aspart 2 UNITS ONCE ONE 09/21 0215 DC / SC 09/21 0216 0215 Insulin Human Regular 0 Q4 05 1400 AC 09/21 SC 1044 Levetiracetam 750 MG Q12 09/20 1000 AC 09/21 Sodium Chloride 100 ML IV 1044 Pantoprazole Sodium 40 MG BID 09/20 1000 AC 08 IV 0916 Potassium Chloride 40 MEQ Q16H 09/21 1100 AC 09/21 Dextrose/Sodium 1,000 ML IV 1051 Chloride Potassium Chloride 40 MEQ Q13H 09/21 1045 DC Dextrose/Sodium 1,000 ML IV Chloride Potassium Chloride 10 MEQ Q1H 09/21 0745 DC 09/21 IV 09/21 0846 0959 Potassium Chloride 10 MEQ Q1H 09/20 2315 DC 09/21 IV 09/21 0116 0307 Potassium Chloride 10 MEQ Q1H 09/20 1830 DC 05/07 IV 09/20 1931 2022 Potassium Chloride 40 MEQ Q10H / 1830 DC 09/21 Dextrose/Sodium 1,000 ML IV 0559 Chloride Sodium Phosphate 15 mMol ONE ONE 09/21 0900 DC 08 Sodium Chloride 250 ML IV 09/21 1303 1120 Sodium Phosphate 15 mMol ONE ONE 09/20 2330 DC / Sodium Chloride 250 ML IV 09/21 0333 0033 Results Last 24 Hours of Lab Results: Laboratory Tests 09/21/ 0615 0530 2035 Blood Gas pH (7.35 - 7.45 PH) 7.52 H pCO2 (35 - 45 TORR) 31 L pO2 (80 - 100 TORR) 95 HCO3 (21 - 28 MEQ/L) 25 ABG O2 Sat (Measured) (>96.0 %) 98.0 P-50 (Temp Corrected) N Carboxyhemoglobin (1.5 - 5.0 %) 0.4 L O2 Concentration % .35 Respiration Rate (BPM) 14 O2 Delivery Method VENT Vent Mode A/C Expiratory Pressure (CMH2O/P) 5 Tidal Volume (CC) 450 Chemistry Sodium (137 - 145 mmol/L) 139 Potassium (3.5 - 5.1 mmol/L) 3.8 Chloride (98 - 107 mmol/L) 104 Carbon Dioxide (22 - 30 mmol/L) 27 Anion Gap (5 - 16) 7 BUN (7 - 17 mg/dL) 7 Creatinine (0.5 - 1.0 mg/dL) 0.5 Estimated GFR (>60 ml/min) > 60 Glucose (65 - 99 mg/dL) 193 H Lactic Acid (0.7 - 2.1 mmol/L) 1.8 Calcium (8.4 - 10.2 mg/dL) 7.4 L Phosphorus (2.5 - 4.5 mg/dL) 3.3 Magnesium (1.6 - 2.3 mg/dL) 2.1 Total Bilirubin (0.2 - 1.3 mg/dL) 0.7 AST (14 - 36 U/L) 49 H ALT (9 - 52 U/L) 32 Albumin (3.5 - 5.0 g/dL) 2.6 L Hematology CBC w Diff MAN DIFF ORDERED WBC (4.8 - 10.8 /CUMM) 20.2 H RBC (4.20 - 5.40 /CUMM) 4.78 Hgb (12.0 - 16.0 G/DL) 13.0 Hct (37 - 47 %) 39.7 MCV (81.0 - 99.0 FL) 83.1 MCH (27.0 - 31.0 PG) 27.2 RDW (11.5 - 14.5 %) 18.3 H Plt Count (130 - 400 /CUMM) 220 MPV (7.4 - 10.4 FL) 9.1 Gran % (42.2 - 75.2 %) 86.6 H Lymphocytes % (20.5 - 51.1 %) 9.6 L Monocytes % (1.7 - 9.3 %) 3.4 Eosinophils % (0 - 5 %) 0.2 Basophils % (0.0 - 2.0 %) 0.2 Absolute Granulocytes (1.4 - 6.5 /CUMM) 17.5 H Absolute Lymphocytes (1.2 - 3.4 /CUMM) 1.9 Absolute Monocytes (0.10 - 0.60 /CUMM) 0.7 H Absolute Eosinophils (0.0 - 0.7 /CUMM) 0 Absolute Basophils (0.0 - 0.2 /CUMM) 0 Platelet Estimate (ADEQUATE) ADEQUATE Normocytic RBCs VERIFIED Normochromic RBCs VERIFIED PUBS MCHC (33.0 - 37.0 G/DL) 32.7 L Miscellaneous Phlebotomy Draw Site RIGHT RADIAL 09/20 1830 1600 1600 Blood Gas pH (7.35 - 7.45 PH) 7.58 H pCO2 (35 - 45 TORR) 30 L pO2 (80 - 100 TORR) 85 HCO3 (21 - 28 MEQ/L) 28 ABG O2 Sat (Measured) (>96.0 %) 96.0 P-50 (Temp Corrected) N Carboxyhemoglobin (1.5 - 5.0 %) 0.8 L O2 Concentration % 35% Temperature (97.0 - 100.0 FARH) 99.6 Respiration Rate (BPM) 16 O2 Delivery Method ESPRIT Vent Mode AC Expiratory Pressure (CMH2O/P) 5 Tidal Volume (CC) 450 Chemistry Sodium (137 - 145 mmol/L) 138 140 Potassium (3.5 - 5.1 mmol/L) 3.3 L 2.6 *L Chloride (98 - 107 mmol/L) 101 100 Carbon Dioxide (22 - 30 mmol/L) 28 28 Anion Gap (5 - 16) 9 11 BUN (7 - 17 mg/dL) 8 8 Creatinine (0.5 - 1.0 mg/dL) 0.5 0.5 Estimated GFR (>60 ml/min) > 60 > 60 Glucose (65 - 99 mg/dL) 200 H 174 H Lactic Acid (0.7 - 2.1 mmol/L) 2.4 H Calcium (8.4 - 10.2 mg/dL) 7.0 L 7.3 L Phosphorus (2.5 - 4.5 mg/dL) 3.3 3.6 Magnesium (1.6 - 2.3 mg/dL) 2.3 2.3 Total Bilirubin (0.2 - 1.3 mg/dL) 0.6 0.5 AST (14 - 36 U/L) 51 H 52 H ALT (9 - 52 U/L) 33 35 Albumin (3.5 - 5.0 g/dL) 2.3 L 2.3 L Miscellaneous Phlebotomy Draw Site RIGHT RADIAL Assessment/Plan Assessment: 41-year-old woman setting with opiate and benzo overdose seemingly having a picture of a fused hypoxic brain injury. However improving cranial nerve reflexes suggestive of a suppressive effect of the high opiate level in the blood. During the intact cranial nerve reflexes there is a good prognosis for recovery of mental status. However actual neurological deficits cannot be determined at this point in time. Plan: Agree with EEG and eventually an MRI brain. Auditory U tox to see drug levels. Ensure all metabolic deranges I derangements are corrected.
[2016-09-21 16:00] VITALS: BP 186/98
--- NOTE | 2016-09-21 17:00 | NUR ---
Patient remains unresponsive and unarousable off sedation. EEG completed and neuro in to assess patient who state corneal and pupilary reflexes are intact. + Babinski. Tube feeds have been started per order and Glucerna 1.2 currently infusing at 10mls per hour for 12 hours with a 95ml water flush every 4 hours. OGT remains in place. ST on tele monitor, HR= 100-130's SBP 170-180's. Remains intubated and ETT was retaped by respiratory. Bite block remains in place. Pts sister remains at the bedside and updated frequently on place of care. D5NS w/ 40meq KCL continues to infuse at 50mls/hr. IV boluses given per order. No s/s of pain currently noted. Will continue to closely monitor patient.
--- NOTE | 2016-09-21 22:19 | ELECTROENCEPHALOGRAM REPORT ---
Electroencephalogram Report Electroencephalogram Results Date of service: 09/21/16 Attending MD: MINA FENG MD [employer]ling Ball Assembler: Fiona EEG Number: [id number] Test Utilizes: 10-20 system, 21 lead 18 channel digital recording Pertinent Hx/Physical/Neuro Findings/Clin Diagnosis: 41 year old who overdosed on opiates, currently unresponsive. Inpatient Medications: Current Medications Sig/Yaniv Start time Last Medication Dose Route Stop Time Status Admin Albuterol Sulfate 3 ML BID 09/20 2200 AC 09/21 INH 2015 Ampicillin Sodium/ 1,500 MG Q6 09/20 0600 AC 08 Sulbactam Sodium IV 1826 Sodium Chloride 100 ML Enoxaparin Sodium 40 MG DAILY 09/21 1000 AC /08 SC 0916 Insulin Aspart 0 Q4 09/21 1000 DC SC Insulin Aspart 2 UNITS ONCE ONE 09/21 0215 DC 05/08 SC 09/21 0216 0215 Insulin Human Regular 0 Q4 / 1400 AC 09/21 SC 1044 Levetiracetam 750 MG Q12 09/20 1000 AC /08 Sodium Chloride 100 ML IV 1044 Pantoprazole Sodium 40 MG BID /07 1000 AC 05/08 IV 0916 Potassium Chloride 40 MEQ Q16H /08 1100 AC 05/08 Dextrose/Sodium 1,000 ML IV 1826 Chloride Potassium Chloride 40 MEQ Q13H / 1045 DC Dextrose/Sodium 1,000 ML IV Chloride Potassium Chloride 10 MEQ Q1H /08 0745 DC 05/08 IV / 0846 0959 Potassium Chloride 10 MEQ Q1H /07 2315 DC 05/08 IV /08 0116 0307 Potassium Chloride 40 MEQ Q10H /07 1830 DC 05/08 Dextrose/Sodium 1,000 ML IV 0559 Chloride Sodium Phosphate 15 mMol ONE ONE 09/21 0900 DC 05/08 Sodium Chloride 250 ML IV / 1303 1120 Sodium Phosphate 15 mMol ONE ONE 09/20 2330 DC 05/08 Sodium Chloride 250 ML IV / 0333 0033 Interpretation: The recording demonstrates a loss of the normal frequency gradient due to overall slowing of the background rhythms. The prevailing rhythm is within the theta range. More profound slowing is noted within the left frontotemporal region in the range of delta. There are occasional isolated sharp discharges within the central regions. Impression: Abnormal EEG due to diffuse background slowing suggestive of cerebral dysfunction with suggestive structural abnormality within the left frontotemporal region. No suggestion of subclinical seizures.
[2016-09-22] VITALS: BP 178/98
--- NOTE | 2016-09-22 04:00 | NUR ---
PATIENT WILL WITHDRAW LEGS TO TACTILE STIMULI.VALERIE. MONITOR SINUS TACHYCARDIA. YS=974/98.ENDOTRACHEAL TUBE TO VENTILATOR AT 35%.TUBE FEEDING RESIDUAL SCANT. RATE OF TUBE FEEDING INCREASED TO 25 ML/HR.
[2016-09-22 05:26] LABS: ABSOLUTE BASOPHIL COUNT 0.1 /CUMM (0.0-0.2); ABSOLUTE EOSINOPHIL COUNT 0 /CUMM (0.0-0.7); ABSOLUTE LYMPH COUNT 1.9 /CUMM (1.2-3.4); ABSOLUTE MONOCYTE COUNT 0.5 /CUMM (0.10-0.60); BASOPHIL % 0.4 % (0.0-2.0); EOSINOPHIL % 0.2 % (0-5); MEAN CORPUSCULAR HGB 27.2 PG (27.0-31.0); MEAN CORPUSCULAR HGB CONC 32.7 G/DL (33.0-37.0); MEAN CORPUSCULAR VOLUME 83.3 FL (81.0-99.0); MEAN PLATELET VOLUME 8.9 FL (7.4-10.4); PLATELET COUNT 202 /CUMM (130-400); RED BLOOD CELL CT 4.56 /CUMM (4.20-5.40); WHITE BLOOD CELL COUNT 15.5 /CUMM (4.8-10.8)
--- NOTE | 2016-09-22 05:45 | PN- Resident CRCU ---
See Addendum Subjective HPI/CRCU Issues: Patient was seen and examined this morning, sister at bedside. Patient had coughing reflex from ventilator tube, swallowing upon examining her neck, decorticating posture. No overnight events was reported by the nurse or the sister. 24 Hour Events: Temperature 98.4, MAXIMUM TEMPERATURE 99.4 Heart rate lowest 97, highest 125 sinus rhythm Blood pressure lowest 160/78, highest 199/79 Mechanical ventilator setting AC mode, rate 14, tidal 450, PEEP 5, FiO2 35.5 D5 normal saline with 40 mEq potassium chloride and treat of 60 mL/h Intakes 3099, output 1700 Objective Vital Signs & I&O Last 8 Hrs of Vitals and I&O: 555 Exam General Appearance: intubated Head: atraumatic, normal appearance Neck: normal inspection Respiratory: lungs clear Cardiovascular: regular rate/rhythm Gastrointestinal: normal bowel sounds, soft, non-tender Extremities: normal inspection, normal capillary refill, no edema Cranial Nerves: PERRL Skin: intact, normal color, warm/dry Current Medications: Current Medications Sig/Yaniv Start time Last Medication Dose Route Stop Time Status Admin Albuterol Sulfate 3 ML BID 09/20 2200 AC 09/21 INH 2015 Ampicillin Sodium/ 1,500 MG Q6 09/20 0600 AC 09/22 Sulbactam Sodium IV 0612 Sodium Chloride 100 ML Enoxaparin Sodium 40 MG DAILY 09/21 1000 AC 09/22 SC 0939 Hydralazine HCl 5 MG ONCE ONE 09/23 0700 CAN IV 09/22 08 Insulin Aspart 0 Q4 09/21 1000 DC SC Insulin Human Regular 0 Q4 09/21 1400 AC 09/22 SC 0222 Levetiracetam 750 MG Q12 09/20 1000 AC 09/21 Sodium Chloride 100 ML IV 2201 Magnesium Oxide 400 MG ONE ONE 09/22 0800 DC / PO 09/22 800 0939 Pantoprazole Sodium 40 MG BID 09/20 1000 AC 09/22 IV 0939 Potassium Chloride 60 MEQ ONCE ONE 09/22 0800 DC / PO 09/23 0701 0939 Potassium Chloride 40 MEQ Q16H 09/21 1100 AC / Dextrose/Sodium 1,000 ML IV 0612 Chloride Potassium Chloride 40 MEQ Q13H 09/21 1045 DC Dextrose/Sodium 1,000 ML IV Chloride Potassium Chloride 40 MEQ Q10H 09/20 1830 DC 05/08 Dextrose/Sodium 1,000 ML IV 0559 Chloride Sodium Phosphate 15 mMol ONE ONE 09/21 0900 DC 05/ Sodium Chloride 250 ML IV 09/21 1303 1120 Impression/Plan Impression/Problem List Impression: Ms Bowen is a 41 year old female with past medical history of diabetes, hypertension, gastroparesis and depression who was BIBA after she was found unresponsive and covered in her vomitus at home on 09/19/2016. She was admitted in ICU for closer monitoring. Today's is day 3 of admission. #Altered mental status status post hypoxic encephalopathy as a result of medication overdose. -Limited response to Narcan on 09/20/2016. -Urine positive for opiates and benzodiazepine. Will repeat urine toxicology today, follow up on results -Neurologist on board. -EEG Abnormal EEG due to diffuse background slowing suggestive of cerebral dysfunction with suggestive structural abnormality within the left frontotemporal region. No suggestion of subclinical seizures. -IV Protonix. #Brief seizure -Continue IV Keppra. -Continue aggressive electrolyte replacement. #Acute hypoxic respiratory failure secondary anoxic brain injury. (she was taking valium, morphine and flexerel at home), -Continue intubation. Repeat chest x-ray in a.m. while intubated. -Continue IV fluids 60 mL per hour. -Last AB.52/31./ #Possible aspiration pneumonia, -Continue monitor CBC -Continue Unasyn. -Follow Cultures and sensitivities, Gram stain shows mixed marisol after 2 days. -Patient afebrile. #History of diabetes. -Will adjust the sliding scale, avoid strict glucose control -Tube feedings, nutrition consultation was obtained. #Hypertension -Target blood pressure systolic 160 #Positive urine culture -Greater than 100 000 colonies per mL. Gram-positive cocci. Identification and susceptibilities to follow. -Consider coverage if WBC remains persistently elevated #DVT prophylaxis -ALP S #Diet -Currently nothing by mouth -Tube feeding #Code full -Code Problem List: 1. Respiratory failure 2. Aspiration pneumonia 3. Anoxic brain injury Pain Ratin Tomorrow's Labs & Rationales: ICU bundle CBC Plan DVT/Prophylaxis: mechanical
[2016-09-22 05:56] LABS: GRANULOCYTE % 83.8 % (42.2-75.2)
--- NOTE | 2016-09-22 08:51 | RADIOLOGY REPORT ---
EXAMINATION: XR PORTABLE CHEST CLINICAL INFORMATION: Intubated patient. Confirm ET tube positioning. COMPARISON: Several prior chest x-rays, most recent of which is dated 09/21/2016. TECHNIQUE: Portable AP semierect view of the chest was obtained. FINDINGS: ET tube is approximately 5.8 cm above the maureen. Enteric tube courses into the abdomen with tip not included on the [id number] of this exam. The cardiac mediastinal silhouette is within normal limits in size. Low lung volumes are seen with bibasilar opacities, similar to prior study. No dense consolidation, pulmonary edema or pneumothorax is seen. The previously noted bilateral upper lobe parenchymal opacities are less distinct on today's exam. Degenerative changes are again noted in the mid and lower thoracic spine. IMPRESSION: 1. Endotracheal tube tip approximately 6 cm above the maureen. 2. Enteric tube courses into the abdomen with tip not included. 3. Low lung volumes with no change in bibasilar parenchymal opacities. Bilateral upper lobe opacities are, however, less distinct on today's exam.
--- NOTE | 2016-09-22 13:10 | NUR ---
cdiff sent at 1100 multiple large loose stools utox sent at 1200
--- NOTE | 2016-09-22 13:17 | NUR ---
afebrile,pupils 4mm sluggish, fluttering eyes at times, w/d's feet to touch, slightly pulling arm during manuaul bp, b/l le twitches, stiffens arm at touch, nsr -st 92-116, sbp 159-192 ( reported bp's to Dr. Lopez & Dr. Sullivan), positive pulses, potassium 3.4/mag. 1.9-60 meq klor,400mg mag given via ogt, d5ns 40 kcl maintained at 30 mls/hr, vented 30% fio2 o2 sat 97-99%, scant cabrera/thin suction via et, large amounts thin/white oral suction, bite block in place, gag reflex intact, clear lung sounds, glucerna 1.2 running at 25mls/hr via ogt @ 60 cm @ lip, 95 mls q4 h20 flush, due for increase @ 1530 today to 3rd interval of 40 mls/hr,abd. soft, positive b.s.,f.s. 202 4 units Nov.regular given, berg intact adequate amount clear yellow u/o, utox sent, skin intact,b/l +2 hand edema, buttocks red blanchable, 2 large loose bm's guiac negative c-diff sent, sister Chey at bedside will continue to monitor
[2016-09-22 16:00] VITALS: BP 168/64
[2016-09-22 23:00] VITALS: BP 172/90
[2016-09-23 06:41] LABS: ABSOLUTE BASOPHIL COUNT 0 /CUMM (0.0-0.2); ABSOLUTE EOSINOPHIL COUNT 0.1 /CUMM (0.0-0.7); ABSOLUTE GRANULOCYTE CT 7.9 /CUMM (1.4-6.5); ABSOLUTE LYMPH COUNT 1.8 /CUMM (1.2-3.4); ABSOLUTE MONOCYTE COUNT 0.7 /CUMM (0.10-0.60); BASOPHIL % 0.5 % (0.0-2.0); HEMATOCRIT 37.6 % (37-47); MEAN CORPUSCULAR HGB 27.1 PG (27.0-31.0); MEAN CORPUSCULAR HGB CONC 32.9 G/DL (33.0-37.0); MEAN CORPUSCULAR VOLUME 82.4 FL (81.0-99.0); PLATELET COUNT 222 /CUMM (130-400); RBC DISTRIBUTION WIDTH 16.9 % (11.5-14.5); RED BLOOD CELL CT 4.57 /CUMM (4.20-5.40); WHITE BLOOD CELL COUNT 10.5 /CUMM (4.8-10.8)
--- NOTE | 2016-09-23 07:02 | PN- Resident CRCU ---
Subjective HPI/CRCU Issues: Patient was seen and examined this morning, no overnight events reported by the nurse. Corneal reflex, gag reflex, cough reflex are positive, papular reflex sluggish. 24 Hour Events: Temperature 98.7, MAXIMUM TEMPERATURE 100.2 Heart rate lowest 97, highest 116 sinus rhythm Blood pressure lowest 170/88 manual, highest 200/100 manual Ventilator a/C rate 14, tidal volume 450, peak flow 55, PEEP 5, FiO2 30 D5 normal saline 40 ACC L at rate of 30 mL/h Intake 07/18/2008, output 3650 Objective Vital Signs & I&O Last 8 Hrs of Vitals and I&O: 111 Exam General Appearance: intubated Head: atraumatic, normal appearance Ears, Nose, Throat: normal ENT inspection Neck: normal inspection Respiratory: chest non-tender Cardiovascular: regular rate/rhythm Gastrointestinal: normal bowel sounds, soft, non-tender Extremities: normal inspection, normal capillary refill, no edema Current Medications: Current Medications Sig/Yaniv Start time Last Medication Dose Route Stop Time Status Admin Albuterol Sulfate 3 ML BID 09/20 2200 AC 09/23 INH 0839 Ampicillin Sodium/ 1,500 MG Q6 09/20 0600 AC 09/23 Sulbactam Sodium IV 1226 Sodium Chloride 100 ML Enoxaparin Sodium 40 MG DAILY 09/21 1000 AC 09/23 SC 0906 Hydralazine HCl 10 MG ONCE ONE 09/22 1430 DC 09/22 IV 09/22 1431 1425 Insulin Human Regular 0 Q4 09/21 1400 AC 09/23 SC 1415 Levetiracetam 750 MG Q12 09/20 1000 AC / Sodium Chloride 100 ML IV 1032 Pantoprazole Sodium 40 MG BID 09/20 1000 AC 05/ IV 0906 Potassium Chloride 40 MEQ ONCE ONE 09/23 0745 DC 05/ PO 09/23 0746 0906 Potassium Chloride 40 MEQ Q24H 09/22 1045 DC 09/22 Dextrose/Sodium 1,000 ML IV 1054 Chloride Impression/Plan Impression/Problem List Impression: Ms Bowen is a 41 year old female with past medical history of diabetes, hypertension, gastroparesis and depression who was BIBA after she was found unresponsive and covered in her vomitus at home on 09/19/2016. She was admitted in ICU for closer monitoring. Today's is day 3 of admission. #Altered mental status status post hypoxic encephalopathy as a result of medication overdose. -Limited response to Narcan on 09/20/2016. -Urine positive for opiates and benzodiazepine. Repeated urine tox continue to be positive for benzos, will repeat urine toxicology in a.m. 09/24 -Neurology consultation was obtained, thanks the recommendation -EEG Abnormal EEG due to diffuse background slowing suggestive of cerebral dysfunction with suggestive structural abnormality within the left frontotemporal region. No suggestion of subclinical seizures. -IV Protonix. #Brief seizure -Continue IV Keppra -Continue aggressive electrolyte replacement #Acute hypoxic respiratory failure secondary anoxic brain injury. -Continue intubation. Repeat chest x-ray in a.m. while intubated. -DC IV fluids, increase free fluid flush to 125 cc Q4h -Last ABG 09/21/16: 7.52/. #Aspiration pneumonia -Continue monitor CBC -Continue Unasyn -Blood culture negative so far, respiratory culture positive for mixed marisol, urine culture positive for staph coagulase negative sensitive -Patient afebrile. #History of diabetes. -Will adjust the sliding scale, avoid strict glucose control -Tube feedings, nutrition consultation was obtained #Hypertension -Target blood pressure systolic 160 #DVT prophylaxis -ALPS, Lovenox #Diet -Tube feeding #Code full Problem List: 1. Respiratory failure 2. Aspiration pneumonia 3. Anoxic brain injury Pain Ratin Tomorrow's Labs & Rationales: CBC, Intensive Care Unit bundles, urine toxicology Plan DVT/Prophylaxis: mechanical
[2016-09-23 08:00] VITALS: BP 160/100
--- NOTE | 2016-09-23 09:51 | PN- CRCU ---
Subjective HPI/Critical Care Issues: Seen and examined this morning No significant improvement in mental status Does not respond to verbal or tactile stimuli or to deep pain fibrillation Low-grade temperature Does have episodes of hypertension and hypotension and at times she becomes tachycardic as well Adequate urine output Continues to be on tube feeding and 30 mL of IV fluids Objective Current Medications: Current Medications Sig/Yaniv Start time Last Medication Dose Route Stop Time Status Admin Albuterol Sulfate 3 ML BID 09/20 2200 AC 09/23 INH 0839 Ampicillin Sodium/ 1,500 MG Q6 09/20 0600 AC 09/23 Sulbactam Sodium IV 0545 Sodium Chloride 100 ML Enoxaparin Sodium 40 MG DAILY 09/21 1000 AC 09/23 SC 0906 Hydralazine HCl 10 MG ONCE ONE 09/22 1430 DC 09/22 IV 09/22 1431 1425 Insulin Human Regular 0 Q4 09/21 1400 AC 09/23 SC 0545 Levetiracetam 750 MG Q12 09/20 1000 AC 09/22 Sodium Chloride 100 ML IV 2108 Pantoprazole Sodium 40 MG BID 09/20 1000 AC 09/23 IV 0906 Potassium Chloride 40 MEQ ONCE ONE 09/23 0745 DC 09/23 PO 09/23 0746 0906 Potassium Chloride 40 MEQ Q24H 09/22 1045 DC 09/22 Dextrose/Sodium 1,000 ML IV 1054 Chloride Potassium Chloride 40 MEQ Q16H 09/21 1100 DC 09/22 Dextrose/Sodium 1,000 ML IV 0612 Chloride Vital Signs & I&O Last 24 Hrs of Vitals and I&O: Vital Signs Date Time Temp Pulse Resp B/P B/P Pulse O2 O2 Flow FiO2 Mean Ox Delivery Rate 09/23 0829 30 09/23 0800 98.0 97 18 160/100 97 Ventilator 30% 09/23 0800 97 Ventilator 30% 09/23 0540 30 09/23 0400 98 Ventilator 30% 09/23 0315 30 09/23 0036 30 09/23 0000 98 Ventilator 30% 09/22 2300 99.5 100 14 172/90 97 Ventilator 30% 09/22 2212 30 09/22 2027 30 09/22 2000 99 Ventilator 30% 09/22 1606 30 09/22 1600 98.2 93 14 168/64 98 Ventilator 30% 09/22 1600 98 Ventilator 30% 09/22 1425 97 191/77 09/22 1423 30 09/22 1200 98 Ventilator 30% 09/22 1055 30 Intake & Output 09/23 1600 09/23 0800 09/23 0000 Intake Total 850 870 Output Total 1560 1540 Balance -710 -670 Intake, IV 430 440 Intake, Other 420 430 Number 1 3 Bowel Movements Output, Stool 180 Output, Urine 1380 1540 SIGNIFICANT DATA Echocardiogram did show abnormal EEG with diffuse background slowing suggestive of cerebral dysfunction no subclinical seizure Chest x-ray done yesterday showed low lung volumes Other blood work reviewed BUN is 5 creatinine is 0.4 potassium is 3.7 hemoglobin and hematocrit has been relatively stable sodium is 137. Impression/Plan Impression/Plan Impression/Plan: General Appearance: intubated Head: atraumatic, normal appearance Neck: normal inspection Respiratory: lungs clear Cardiovascular: regular rate/rhythm Gastrointestinal: normal bowel sounds, soft, non-tender Extremities: normal inspection, normal capillary refill, no edema Cranial Nerves: dilated pupil, gag present has at times decorticate posture Skin: intact, normal color, warm/dry Urine tox noted still has benzo onboard IMPRESSION This is a lady with multiple medical problems including diabetes, complications from diabetes including gastroparesis per history, but pressure history, chronic low back pain, migraine, urinary incontinence, GERD, narcotic use and benzodiazepine use followed by pain Center per the history noted in the house staff's note now comes in with * Anoxic brain injury - Significant decreased mental status with comatose condition with profound hypoglycemia now with significant anoxic brain injury as noted in the CAT scan and physical exam. Patient did not really respond to Narcan. Differential diagnoses include hypoglycemia from her diabetes medication versus benzodiazepine overdose versus narcotic overdose intentionally on a nonintentional is unknown at this time. Vomiting with aspiration pneumonia leading to hypoxic brain injury as well as a possibility * Respiratory failure related to severe anoxic brain injury * Sig vasomotor instablity prob due to brain stem issues * Significant vomiting upon admission or prior to admission with aspiration pneumonitis * History of diabetes, hypertension, significant hypokalemia, gastroparesis * Previous history of low back pain and depression * 14 mm bony lesion and T5 vertebral body which needs to be followed in the future * History of sig narcotic use * Significant history of gastroparesis now with the coffee ground REC Continue mechanical ventilator Increase free water and dc ivf Check fingerstick Watch for any seizure Keep the head of bed elevated, periodex oral care and ppi daily Aggressive oral suctioning Prog poor and discussed with pts sister and updated yesterday Check urine tox again in am DVT prophylaxis We will follow. Patient is critically ill total time spent 40 minutes. Will have a meeting in am with the sister
--- NOTE | 2016-09-23 11:11 | NUR ---
Patient is unarousable and unresponsive- off sedation. Stiff rigid movements with any tactile stimulation to her extremities. Pupils are 3mm and sluggish. + Babinski. NSR-ST on tele monitor. HR= 90-110's. SBP: 160-190's. Remains intubated with a #7 ETT to the left at 22cm, lungs clear and diminished with scant rhonchi noted to the bilateral upper lobes. Suctioned for a scant amount of think yellow secretions. Clear thin scretions noted orally. Vent settings currenty AC 14/450/30/5. OGT in place with Glucerna 1.2 infusing at a goal rate of 60mls/hr with 95ml water flushes every 4 hours. Residual was 70mls at 0900. Rectal tube in place for loose stools. Abdomen is soft with + bowel sounds. Ho is draining clear yellow urine. Trace generalized edema is noted. Coccyx is red and blanchable with an abrasion noted. IVF have been d/c. Remains on IV abx. No s/s of pain currently noted. Dr. Brewer in to assess. Plan is for family meeting tomorrow- Will continue to closely monitor patient.
--- NOTE | 2016-09-23 14:28 | NUR ---
Wound Care Assessment: Patient presents with a intact fluid filled blister to her left upper buttock measuring 0.5 X 0.5cm- Periwound is red and blanchable. Coccyx presents with a small abrasion and the surrounding area is red and blanchable- Patient was found on her couch unresponsive for an unknown period of time- Remains intubated in the ICU. Impression: Stage 2 pressure injury to the left upper buttock. Recommendations: Continue use of catergory 2 mattress- Apply barrier cream to buttocks and coccyx- monitor area for any further decline- Nutrition already following, Frequent turning and repositioning.
[2016-09-23 16:00] VITALS: BP 180/96
[2016-09-24] VITALS: BP 180/90
--- NOTE | 2016-09-24 | NUR ---
PATIENT UNRESPONSIVE TO TACTILE STIMULI. VALERIE. MONITOR SINUS TACHYCARDIA AT RATE OF 102. MANUAL BP= 180/90.ETT TO VENTILATOR AT 30% SAT=98%.MOUTH CARE GIVEN. OGT WITH GLUCERNA AT GOAL RATE OF 60 ML/HR. NO RESIDUAL OBTAINED. RECTAL TUBE IN PLACE WITH BROWN LIQUID STOOL.
[2016-09-24 05:43] LABS: ABSOLUTE BASOPHIL COUNT 0.1 /CUMM (0.0-0.2); ABSOLUTE EOSINOPHIL COUNT 0.1 /CUMM (0.0-0.7); ABSOLUTE GRANULOCYTE CT 7.3 /CUMM (1.4-6.5); ABSOLUTE MONOCYTE COUNT 0.8 /CUMM (0.10-0.60); BASOPHIL % 0.5 % (0.0-2.0); GRANULOCYTE % 70.9 % (42.2-75.2); MEAN CORPUSCULAR HGB CONC 32.8 G/DL (33.0-37.0); MEAN CORPUSCULAR VOLUME 82.4 FL (81.0-99.0); MEAN PLATELET VOLUME 8.9 FL (7.4-10.4); PLATELET COUNT 248 /CUMM (130-400); RBC DISTRIBUTION WIDTH 17.1 % (11.5-14.5); RED BLOOD CELL CT 4.73 /CUMM (4.20-5.40); WHITE BLOOD CELL COUNT 10.2 /CUMM (4.8-10.8)
[2016-09-24 08:00] VITALS: BP 178/86
--- NOTE | 2016-09-24 08:17 | PN- Resident CRCU ---
LINDA MIRZA,[facility] 09/24/16 0817: Subjective HPI/CRCU Issues: Follow up: -Anoxic brain injury -Acute hypoxic respiratory failure related to severe anoxic brain injury -Diabetes mellitus, hypertension -Chronic low back pain on narcotics Patient was seen and examined this morning, still at bedside. No overnight events reported by the nurse. Patient continues to have brainstem reflexes and response to painful stimulus inform of decorticating posture, report from the nurse that the patient moved her right eye. 24 Hour Events: Temperature 98.3, MAXIMUM TEMPERATURE 99.1 Pulse lowest 96, highest 110 sinus rhythm Blood pressure lowest 166/74, highest 197/92 Mechanical ventilator A/C mode rate 14, peak flow 55, tidal volume 450, PEEP 5, FiO2 50 with saturation 98% Intake 2474, output 3225 Tube feeding Objective Vital Signs & I&O Last 8 Hrs of Vitals and I&O: 111 Exam General Appearance: intubated, not concious, not sedated Head: atraumatic, normal appearance Ears, Nose, Throat: normal pharynx, normal ENT inspection Neck: normal inspection, supple, full range of motion Respiratory: normal breath sounds, chest non-tender Cardiovascular: regular rate/rhythm Gastrointestinal: normal bowel sounds, soft, non-tender Extremities: normal inspection, normal capillary refill, normal range of motion, no edema Cranial Nerves: sluggish pupillary reflex BL , Sucking, coughing, gag, corneal reflexes positive Babanisky sign positive BL Current Medications: Current Medications Sig/Yaniv Start time Last Medication Dose Route Stop Time Status Admin Albuterol Sulfate 3 ML BID 09/20 2200 AC 09/24 INH 0811 Ampicillin Sodium/ 1,500 MG Q6 09/20 0600 AC 09/24 Sulbactam Sodium IV 1128 Sodium Chloride 100 ML Enoxaparin Sodium 40 MG DAILY 09/21 1000 AC 09/24 SC 1128 Insulin Human Regular 0 Q4 09/21 1400 AC 09/24 SC 1100 Levetiracetam 750 MG Q12 09/20 1000 AC 09/24 Sodium Chloride 100 ML IV 1128 Pantoprazole Sodium 40 MG BID 09/20 1000 AC 09/24 IV 1128 Impression/Plan Impression/Problem List Impression: Ms Bowen is a 41 year old female with past medical history of diabetes, hypertension, gastroparesis and depression who was BIBA after she was found unresponsive and covered in her vomitus at home on 09/19/2016. She was admitted in ICU for closer monitoring. Today's is day 3 of admission. #Altered mental status status post hypoxic encephalopathy as a result of medication overdose. -Limited response to Narcan on 09/20/2016. -Urine positive for opiates and benzodiazepine. Repeated urine tox continue to be positive for benzos, repeated urine toxicology this morning 09/24 showed increase in benzo level mostly redistribution from fat tissue, will repeat urine toxicology in a.m. 09/25 -Neurology consultation was obtained, thanks the recommendation -EEG Abnormal EEG due to diffuse background slowing suggestive of cerebral dysfunction with suggestive structural abnormality within the left frontotemporal region. No suggestion of subclinical seizures. -IV Protonix. #Brief seizure -Continue IV Keppra -Continue aggressive electrolyte replacement #Acute hypoxic respiratory failure secondary anoxic brain injury. -Continue intubation. Repeat chest x-ray in a.m. while intubated. -DC IV fluids -Continue tube feed -Last ABG 09/24/16: 7.53/26/113/21 #Aspiration pneumonia -Continue monitor CBC -Continue Unasyn -Blood culture negative so far, respiratory culture positive for mixed marisol, urine culture positive for staph coagulase negative sensitive -Patient afebrile. #History of diabetes. -Will adjust the sliding scale, avoid strict glucose control -Tube feedings, nutrition consultation was obtained #Hypertension -Target blood pressure systolic less than 190 confirmed by Jens Brewer MD #DVT prophylaxis -ALPS, Lovenox #Diet -Tube feeding #Code full Problem List: 1. Anoxic brain injury Pain Ratin Tomorrow's Labs & Rationales: ICU bundle CBC Urine tox Plan DVT/Prophylaxis: rita BREWER MD,JENS 09/24/16 1342: Attending MD Review Statement Attending Sign Off Attending Cosign Statement: I have: examined this patient, reviewed al EMR data, personally reviewd images, discussd w/resident/PA/CLINICAL DOCUMENTATION CLERK, discussed mgmt plan w/prasad, discussed mgmt plan w/CM, discussed mgmt plan w/pt, agreed w/resident/PA/CLINICAL DOCUMENTATION CLERK, amended to note. Other Findings: Seen and examined independently Discussed with the sister Pts clinical status is the same No sig improvement No new issues Urine tox still shows benzos IMPRESSION This is a lady with multiple medical problems including diabetes, complications from diabetes including gastroparesis per history, but pressure history, chronic low back pain, migraine, urinary incontinence, GERD, narcotic use and benzodiazepine use followed by pain * Anoxic brain injury - Significant decreased mental status with comatose condition with profound hypoglycemia now with significant anoxic brain injury as noted in the CAT scan and physical exam. Patient did not really respond to Narcan. Differential diagnoses include hypoglycemia from her diabetes medication versus benzodiazepine overdose versus narcotic overdose intentionally on a nonintentional is unknown at this time. Vomiting with aspiration pneumonia leading to hypoxic brain injury as well as a possibility * Respiratory failure related to severe anoxic brain injury * Sig vasomotor instablity prob due to brain stem issues * Significant vomiting upon admission or prior to admission with aspiration pneumonitis * History of diabetes, hypertension, significant hypokalemia, gastroparesis * Previous history of low back pain and depression * 14 mm bony lesion and T5 vertebral body which needs to be followed in the future * History of sig narcotic use * Significant history of gastroparesis now with the coffee ground REC Continue mechanical ventilator Check fingerstick Watch for any seizure Keep the head of bed elevated, periodex oral care and ppi daily Aggressive oral suctioning Prog poor and discussed with pts sister Check urine tox again in am DVT prophylaxis We will follow. Patient is critically ill total time spent 40 minutes. Will have a meeting in am with the sister
--- NOTE | 2016-09-24 09:42 | RADIOLOGY REPORT ---
EXAMINATION: XR PORTABLE CHEST CLINICAL INFORMATION: Status post intubation. COMPARISON: Chest done on 09/22/2016. TECHNIQUE: Portable frontal view of the chest was obtained. FINDINGS: The tip of the endotracheal tube is located approximately 3.4 cm above the level of the maureen. The tip of the enteric tube is not visualized however is below the level of the hemidiaphragm. Both lung issa are symmetrically expanded, shows nonspecific subtle bibasilar opacities likely represent hypoventilatory changes, appear improved since the prior study dated 09/22/2016. The cardiomediastinal silhouette is within normal limits. There is no pleural effusion present. IMPRESSION: Improved aeration since the prior chest radiograph dated 09/22/2016. The tip of the endotracheal tube is located 3.4 cm above the level of the maureen. No other significant change. Specifically, no new abnormalities.
[2016-09-24 16:00] VITALS: BP 178/96
--- NOTE | 2016-09-24 18:05 | NUR ---
RECEIVED PATIENT AT 0800, ORALLY INTUBATED W/ #7 TO THE LEFT AT 22CM AND MECHANICALLY VENTILATED W/ RATE OF 14, TV-450, FIO2 30%, PEEP OF 5 SATTING 99-100%. DEEP SUCTIONED FOR MOD CLEAR SECRETIONS AND LARGE ORAL SECRETIONS SEEPING OUT OF MOUTH. ST ON THE MONITOR 100S-120S, OTZ=[id number]. GOAL SBP TO BE <[address] RUFFIN. SAS=1-2. +BABINSKI AND +CORNEAL REFLEX. PATIENT FLINCHES/MOVES TO PAIN. PUPILS 4MM AND REACTIVE. EYES OPEN HALF WAY AND CLOSE. HEART RATE INCREASES WITH MOVEMENT/ACTIVITY/CARE. ABDOMEN SOFT/+BS/NONTENDER, TUBE FEED RUNNING AT 60 MLS/HR (GLUCERNA 1.2) WITH Q4 HOUR 125 ML WATER FLUSHES. 75 ML RESIDUAL ASSESSED AND 50 ML THE SECOND TIME IN EVENING. CRAMER IN PLACE DRAINING CLEAR/MARCUS URINE. RECTAL TUBE DRAINING SCANT LOOSE BROWN STOOL. REPLACED DURING TURNING BECAUSE PATIENT PUSHED IT OUT. SKIN INTACT OTHER THAN SOME KENDRICK-RECTAL EXCORIATION TO HAVE DESITIN ORDERED/APPLIED. BLISTER INTACT TO RIGHT BUTTOCK. ALOEVEST APPLILED. +1 EDEMA TO RIGHT HAND AND TRACE EDEMA TO LEFT HAND, +1 GENERALIZED EDEMA. SAFETY MAINTAINED. FAMILY AT BEDSIDE/MET WITH DR. RUFFIN. PATIENT BENZOS IN URINE STILL >800. CONTINUE TO MONITOR NEURO STATUS AND MAINTAIN SAFETY.
[2016-09-24 23:00] VITALS: BP 194/95
[2016-09-25 04:29] LABS: ABSOLUTE BASOPHIL COUNT 0 /CUMM (0.0-0.2); ABSOLUTE EOSINOPHIL COUNT 0.1 /CUMM (0.0-0.7); ABSOLUTE GRANULOCYTE CT 9.9 /CUMM (1.4-6.5); ABSOLUTE LYMPH COUNT 2.1 /CUMM (1.2-3.4); BASOPHIL % 0.3 % (0.0-2.0); EOSINOPHIL % 0.7 % (0-5); GRANULOCYTE % 75.7 % (42.2-75.2); MEAN CORPUSCULAR HGB 27.3 PG (27.0-31.0); MEAN CORPUSCULAR HGB CONC 32.7 G/DL (33.0-37.0); MEAN CORPUSCULAR VOLUME 83.4 FL (81.0-99.0); PLATELET COUNT 272 /CUMM (130-400); RED BLOOD CELL CT 4.68 /CUMM (4.20-5.40); WHITE BLOOD CELL COUNT 13.1 /CUMM (4.8-10.8)
[2016-09-25 07:00] VITALS: BP 186/94
--- NOTE | 2016-09-25 07:08 | PN- Resident CRCU ---
Subjective HPI/CRCU Issues: Follow up: -Anoxic brain injury -Acute hypoxic respiratory failure related to severe anoxic brain injury -Diabetes mellitus, hypertension -Chronic low back pain on narcotics Patient was seen and examined this morning, intubated, unconscious, brainstem reflexes patellar reflex, corneal reflex intact. Decorticating posture. No overnight events reported by the nurse. 24 Hour Events: Temperature 98.9, MAXIMUM TEMPERATURE 99.5 Hydrate lowest 100, highest 118 sinus rhythm Blood pressure lowest 176/83, highest 203/92 Mechanical ventilator A/C mode, rate 14, peak flow 60, tidal volume 450, PEEP 5, FiO2 30% saturating 100% Input 2872, output 2655 Tube feeds running at 65% Objective Vital Signs & I&O Last 8 Hrs of Vitals and I&O: 11 Exam General Appearance: intubated Head: atraumatic, normal appearance Ears, Nose, Throat: normal pharynx, normal ENT inspection Neck: normal inspection, supple, full range of motion Respiratory: normal breath sounds Cardiovascular: regular rate/rhythm Gastrointestinal: normal bowel sounds, soft, non-tender Extremities: normal inspection, normal capillary refill, normal range of motion, no edema Cranial Nerves: Sluggish PERRL Skin: intact, normal color, warm/dry Current Medications: Current Medications Sig/Yaniv Start time Last Medication Dose Route Stop Time Status Admin Albuterol Sulfate 3 ML BID 09/20 2200 AC 09/25 INH 1019 Ampicillin Sodium/ 1,500 MG Q6 / 0600 DC 05/ Sulbactam Sodium IV 0527 Sodium Chloride 100 ML Enoxaparin Sodium 40 MG DAILY / 1000 AC 09/25 SC 1021 Insulin Human Regular 0 Q4 09/21 1400 AC 09/25 SC 1021 Levetiracetam 750 MG Q12 /07 1000 AC 05/ Sodium Chloride 100 ML IV 1021 Pantoprazole Sodium 40 MG BID / 1000 AC 09/25 IV 1021 Zinc Oxide 1 GUY BID 09/24 2200 AC 09/25 TOP 1027 Impression/Plan Impression/Problem List Impression: Ms Bowen is a 41 year old female with past medical history of diabetes, hypertension, gastroparesis and depression who was BIBA after she was found unresponsive and covered in her vomitus at home on 09/19/2016. She was admitted in ICU for closer monitoring. Today's is day 3 of admission. #Altered mental status status post hypoxic encephalopathy as a result of medication overdose. -Limited response to Narcan on 09/20/2016. -Urine positive for opiates and benzodiazepine. Repeated urine tox revealed decrease in benzodiazepines concentration 772 from more than 800 -Neurology consultation was obtained, thanks the recommendation -EEG Abnormal EEG due to diffuse background slowing suggestive of cerebral dysfunction with suggestive structural abnormality within the left frontotemporal region. No suggestion of subclinical seizures. -IV Protonix and daily oral care. #Brief seizure -Continue IV Keppra -Continue electrolyte replacement #Acute hypoxic respiratory failure secondary anoxic brain injury. -Continue intubation. Repeat chest x-ray in a.m. while intubated. -Off IV fluid -Continue tube feed, increase rate to 65 -Last ABG 09/24/16: 7.53///21, if I O2 was decreased from 50 to 30 #Aspiration pneumonia -Continue monitor CBC -Discontinue Unasyn -Blood culture negative so far, respiratory culture positive for mixed marisol, urine culture positive for staph coagulase negative sensitive -Patient afebrile. #History of diabetes. -Will adjust the sliding scale, avoid strict glucose control -Tube feedings, nutrition consultation was obtained #Hypertension -Target blood pressure systolic less than 190 confirmed by Kaz Brewer MD #DVT prophylaxis -ALPS, Lovenox #Diet -Tube feeding #Code full Problem List: 1. Respiratory failure 2. Aspiration pneumonia 3. Anoxic brain injury Pain Ratin Tomorrow's Labs & Rationales: ICU bundle, CBC, Urine tox Plan DVT/Prophylaxis: mechanical
[2016-09-25 08:00] VITALS: BP 186/94
--- NOTE | 2016-09-25 09:36 | PN- Pulmonary ---
Subjective HPI/Critical Care Issues: Patient was seen and examined this morning, intubated, unconscious, brainstem reflexes patellar reflex, corneal reflex intact. Decorticating posture. No overnight events reported by the nurse. 24 Hour Events: Temperature 98.9, MAXIMUM TEMPERATURE 99.5 Hydrate lowest 100, highest 118 sinus rhythm Blood pressure lowest 176/83, highest 203/92 Mechanical ventilator A/C mode, rate 14, peak flow 60, tidal volume 450, PEEP 5, FiO2 30% saturating 100% Input 2872, output 2655 Tube feeds running at 65 Objective Current Medications: Current Medications Sig/Yaniv Start time Last Medication Dose Route Stop Time Status Admin Albuterol Sulfate 3 ML BID 09/20 2199 AC 09/24 INH 2019 Ampicillin Sodium/ 1,500 MG Q6 09/20 0600 AC 09/25 Sulbactam Sodium IV 05 Sodium Chloride 100 ML Enoxaparin Sodium 40 MG DAILY 09/21 1000 AC 09/24 SC 1128 Insulin Human Regular 0 Q4 09/21 1400 AC 09/25 SC 0527 Levetiracetam 750 MG Q12 09/20 1000 AC 09/24 Sodium Chloride 100 ML IV 211 Pantoprazole Sodium 40 MG BID 09/20 1000 AC 09/24 IV 2119 Zinc Oxide 1 GUY BID 09/24 220 AC 09/24 TOP 2118 Vital Signs & I&O Last 24 Hrs of Vitals and I&O: Vital Signs Date Time Temp Pulse Resp B/P B/P Pulse O2 O2 Flow FiO2 Mean Ox Delivery Rate 09/25 0748 30 09/25 0700 98.9 109 17 186/94 100 Ventilator 30% 09/25 0613 30 09/25 0400 99 Ventilator 30% 09/25 0329 30 09/25 0039 30 09/25 0000 97 Ventilator 30% 09/24 2300 99.5 112 28 194/95 95 Ventilator 30% 09/24 2210 30 09/24 1900 30 09/24 1630 30 09/24 1600 98.2 118 20 178/96 97 Ventilator 30% 09/24 1600 99 Ventilator 30% 09/24 1430 30 09/24 1200 99 Ventilator 30% 09/24 1150 30 Intake & Output 09/25 1600 09/25 0800 05 0000 Intake Total 930 960 Output Total 1530 675 Balance -600 285 Intake, IV 200 230 Intake, Oral 0 Intake, Other 480 480 Intake, Tube 250 250 Irrigant Output, Stool 180 Output, Urine 1350 675 Laboratory Tests 09/25 09/24 0300 0525 Blood Gas pH (7.35 - 7.45 PH) 7.53 H pCO2 (35 - 45 TORR) 26 L pO2 (80 - 100 TORR) 113 H HCO3 (21 - 28 MEQ/L) 21 ABG O2 Sat (Measured) (>96.0 %) 98.0 P-50 (Temp Corrected) Y Carboxyhemoglobin (1.5 - 5.0 %) 0.3 L O2 Concentration % 30% Temperature (97.0 - 100.0 FARH) 98.3 Respiration Rate (BPM) 14 O2 Delivery Method ESPRIT Vent Mode AC Expiratory Pressure (CMH2O/P) 5 Tidal Volume (CC) 450 Chemistry Sodium (137 - 145 mmol/L) 139 Potassium (3.5 - 5.1 mmol/L) 4.6 Chloride (98 - 107 mmol/L) 104 Carbon Dioxide (22 - 30 mmol/L) 21 L Anion Gap (5 - 16) 15 BUN (7 - 17 mg/dL) 8 Creatinine (0.5 - 1.0 mg/dL) 0.5 Estimated GFR (>60 ml/min) > 60 Glucose (65 - 99 mg/dL) 178 H Calcium (8.4 - 10.2 mg/dL) 8.7 Phosphorus (2.5 - 4.5 mg/dL) 5.0 H Magnesium (1.6 - 2.3 mg/dL) 2.3 Total Bilirubin (0.2 - 1.3 mg/dL) 0.4 AST (14 - 36 U/L) 57 H ALT (9 - 52 U/L) 61 H Albumin (3.5 - 5.0 g/dL) 3.3 L Hematology CBC w Diff NO MAN DIFF REQ WBC (4.8 - 10.8 /CUMM) 13.1 H RBC (4.20 - 5.40 /CUMM) 4.68 Hgb (12.0 - 16.0 G/DL) 12.8 Hct (37 - 47 %) 39.0 MCV (81.0 - 99.0 FL) 83.4 MCH (27.0 - 31.0 PG) 27.3 RDW (11.5 - 14.5 %) 17.0 H Plt Count (130 - 400 /CUMM) 272 MPV (7.4 - 10.4 FL) 9.0 Gran % (42.2 - 75.2 %) 75.7 H Lymphocytes % (20.5 - 51.1 %) 16.0 L Monocytes % (1.7 - 9.3 %) 7.3 Eosinophils % (0 - 5 %) 0.7 Basophils % (0.0 - 2.0 %) 0.3 Absolute Granulocytes (1.4 - 6.5 /CUMM) 9.9 H Absolute Lymphocytes (1.2 - 3.4 /CUMM) 2.1 Absolute Monocytes (0.10 - 0.60 /CUMM) 1.0 H Absolute Eosinophils (0.0 - 0.7 /CUMM) 0.1 Absolute Basophils (0.0 - 0.2 /CUMM) 0 PUBS MCHC (33.0 - 37.0 G/DL) 32.7 L Miscellaneous Phlebotomy Draw Site RIGHT RADIAL Toxicology Urine Opiates Screen (>2000 NG/ML) < 100.00 Methadone Screen (>300 NG/ML) < 40 Barbiturate Screen (>200 NG/ML) < 60 Ur Phencyclidine Scrn (>25 NG/ML) < 6.00 Amphetamines Screen (>1000 NG/ML) < 100 U Benzodiazepines Scrn (>200 NG/ML) 772 H Urine Cocaine Screen (>300 NG/ML) < 50 Urine Cannabis Screen (>50 NG/ML) < 5.00 09/24 0500 Chemistry Sodium (137 - 145 mmol/L) 137 Potassium (3.5 - 5.1 mmol/L) 4.1 Chloride (98 - 107 mmol/L) 104 Carbon Dioxide (22 - 30 mmol/L) 24 Anion Gap (5 - 16) 10 BUN (7 - 17 mg/dL) 6 L Creatinine (0.5 - 1.0 mg/dL) 0.5 Estimated GFR (>60 ml/min) > 60 Glucose (65 - 99 mg/dL) 167 H Calcium (8.4 - 10.2 mg/dL) 8.5 Phosphorus (2.5 - 4.5 mg/dL) 4.6 H Magnesium (1.6 - 2.3 mg/dL) 2.1 Total Bilirubin (0.2 - 1.3 mg/dL) 0.5 AST (14 - 36 U/L) 35 ALT (9 - 52 U/L) 37 Albumin (3.5 - 5.0 g/dL) 3.1 L Hematology CBC w Diff NO MAN DIFF REQ WBC (4.8 - 10.8 /CUMM) 10.2 RBC (4.20 - 5.40 /CUMM) 4.73 Hgb (12.0 - 16.0 G/DL) 12.8 Hct (37 - 47 %) 39.0 MCV (81.0 - 99.0 FL) 82.4 MCH (27.0 - 31.0 PG) 27.0 RDW (11.5 - 14.5 %) 17.1 H Plt Count (130 - 400 /CUMM) 248 MPV (7.4 - 10.4 FL) 8.9 Gran % (42.2 - 75.2 %) 70.9 Lymphocytes % (20.5 - 51.1 %) 20.0 L Monocytes % (1.7 - 9.3 %) 7.6 Eosinophils % (0 - 5 %) 1.0 Basophils % (0.0 - 2.0 %) 0.5 Absolute Granulocytes (1.4 - 6.5 /CUMM) 7.3 H Absolute Lymphocytes (1.2 - 3.4 /CUMM) 2.0 Absolute Monocytes (0.10 - 0.60 /CUMM) 0.8 H Absolute Eosinophils (0.0 - 0.7 /CUMM) 0.1 Absolute Basophils (0.0 - 0.2 /CUMM) 0.1 PUBS MCHC (33.0 - 37.0 G/DL) 32.8 L Toxicology Urine Opiates Screen (>2000 NG/ML) < 100.00 Methadone Screen (>300 NG/ML) < 40 Barbiturate Screen (>200 NG/ML) < 60 Ur Phencyclidine Scrn (>25 NG/ML) < 6.00 Amphetamines Screen (>1000 NG/ML) < 100 U Benzodiazepines Scrn (>200 NG/ML) > 800 H Urine Cocaine Screen (>300 NG/ML) < 50 Urine Cannabis Screen (>50 NG/ML) 6.20 Microbiology Date/Time Procedure - Status Source Growth 09/22 1300 Clostridium difficile Toxin A & B - COMP STOOL Impression/Plan Impression/Plan Impression/Plan: General Appearance: intubated Head: atraumatic, normal appearance Neck: normal inspection Respiratory: lungs clear Cardiovascular: regular rate/rhythm Gastrointestinal: normal bowel sounds, soft, non-tender Extremities: normal inspection, normal capillary refill, no edema Cranial Nerves: dilated pupil, gag present has at times decorticate posture Skin: intact, normal color, warm/dry Urine tox noted still has benzo onboard IMPRESSION This is a lady with multiple medical problems including diabetes, complications from diabetes including gastroparesis per history, but pressure history, chronic low back pain, migraine, urinary incontinence, GERD, narcotic use and benzodiazepine use followed by pain Center per the history noted in the house staff's note now comes in with * Anoxic brain injury - Significant decreased mental status with comatose condition with profound hypoglycemia now with significant anoxic brain injury as noted in the CAT scan and physical exam. Patient did not really respond to Narcan. Differential diagnoses include hypoglycemia from her diabetes medication versus benzodiazepine overdose versus narcotic overdose intentionally on a nonintentional is unknown at this time. Vomiting with aspiration pneumonia leading to hypoxic brain injury as well as a possibility * Respiratory failure related to severe anoxic brain injury * Sig vasomotor instablity prob due to brain stem issues * Significant vomiting upon admission or prior to admission with aspiration pneumonitis * History of diabetes, hypertension, significant hypokalemia, gastroparesis * Previous history of low back pain and depression * 14 mm bony lesion and T5 vertebral body which needs to be followed in the future * History of sig narcotic use * Significant history of gastroparesis now with the coffee ground REC Continue mechanical ventilator Check fingerstick Watch for any seizure dc abx Keep the head of bed elevated, periodex oral care and ppi daily Aggressive oral suctioning Prog poor and discussed with pts sister and updated Check urine tox again in am DVT prophylaxis We will follow. Patient is critically ill total time spent 40 minutes.
--- NOTE | 2016-09-25 11:20 | NUR ---
Patient remains unresponsive and unarousable, no sedation. Pupils are approx 3mm and sluggish, + corneal reflux. Will occasionally withdraw to tactile stimuli and movements are rigid, + Babinski. ST on tele monitor, HR= 100-110's. SBP: 170-190's. Remains intubated with a #7 to the left at 22cm, lungs clear and diminished with scant rhonchi to the upper lobes. Vent settings currently AC 14/450/30/5. O2 sats 99-100%. Clear thin secretions noted orally and thick yellow noted to the ETT when suctioning. Mouth care provided. Bite block remains in place. OGT with Glucerna 1.2 infusing at 65mls which was changed at 0745 and is now the new goal rate. 125ml water flushes every 4 hours. Abdomen is soft with + bowel sounds. Rectal tube in place- loose brown stool noted- c-diff was sent and is negative. Ho in place draining clear yellow urine. She has trace generalized edema. A fluid filled blister is noted to the left buttock. Coccyx remains red and blanchable. INC dermitis is noted and desitin cream applied. IV abx and IV keppra per order. No s/s of pain noted. Her sister Jennifer remains at the bedside and is being updated on POC frequently. Benzos remain elevated in u-tox. Will continue to closely monitor patient.
--- NOTE | 2016-09-25 15:17 | NUR ---
Referral received this am from disease case manager, Brenda Tierney. The patient is a 41 year old female, admitted to the hospital on 09/19/16 with acute respiratory failure. Patient has anoxic brain injury currently, on a ventilator. 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 Patients sister Jennifer has been present all week. Today I met with her to discuss possible need for conservatorship and HUSKY for LTC should she survive. Jennifer and her are willing to assist with whatever is necessary; Jennifer reports MD has suggested giving it a few more days. Sister in agreement. I will follow peripherally and support as necessary.
[2016-09-25 16:00] VITALS: BP 190/100
[2016-09-26] VITALS: BP 180/96
--- NOTE | 2016-09-26 03:20 | NUR ---
PT BP 200/102 MANUALLY AND HEARTRATE IS 118. [address] CASTANEDA NOTIFIED. AWAITING FURTHER ORDERS
[2016-09-26 05:20] LABS: ABSOLUTE BASOPHIL COUNT 0.1 /CUMM (0.0-0.2); ABSOLUTE EOSINOPHIL COUNT 0.1 /CUMM (0.0-0.7); ABSOLUTE GRANULOCYTE CT 11.1 /CUMM (1.4-6.5); ABSOLUTE LYMPH COUNT 2.3 /CUMM (1.2-3.4); BASOPHIL % 0.3 % (0.0-2.0); MEAN CORPUSCULAR HGB 27.1 PG (27.0-31.0); MEAN CORPUSCULAR HGB CONC 32.7 G/DL (33.0-37.0); MEAN CORPUSCULAR VOLUME 82.8 FL (81.0-99.0); MEAN PLATELET VOLUME 9.2 FL (7.4-10.4); PLATELET COUNT 318 /CUMM (130-400); RBC DISTRIBUTION WIDTH 17.4 % (11.5-14.5); RED BLOOD CELL CT 4.83 /CUMM (4.20-5.40); WHITE BLOOD CELL COUNT 14.6 /CUMM (4.8-10.8)
--- NOTE | 2016-09-26 06:30 | NUR ---
PT BP 216/102 WITH HEARTRATE 132. PT HAS TWITCHING. DR. CASTANEDA NOTIFIED AND LOPRESSOR 2.5 MG GIVEN PER MD ORDER WILL CONTINUE TO MONITOR
--- NOTE | 2016-09-26 07:09 | PN- Resident CRCU ---
Subjective HPI/CRCU Issues: Ms Bowen seen and examined this morning. Resting comfortably in bed. Nonresponsive and nonverbal with sternal rub. Unable to follow motor commands. She does have occasional spontaneous opening and closing of eyes. She is currently intubated. 24 Hour Events: Brief Seizure noted by night nursing staff. Objective Vital Signs & I&O Last 8 Hrs of Vitals and I&O: Intake & Output 09/26 1600 Intake Total 797 Output Total 225 Balance 572 Intake, IV 150 Intake, Oral 0 Intake, Tube 497 Feeding Intake, Tube 150 Irrigant Number 2 Bowel Movements Output, Urine 225 Exam General Appearance: comfortable, intubated Neck: normal inspection Respiratory: normal breath sounds Cardiovascular: regular rate/rhythm Gastrointestinal: normal bowel sounds, soft, non-tender, rectal Tube Extremities: normal inspection Cranial Nerves: PERRL, Babinski + Skin: intact, diaphoresis Current Medications: Current Medications Sig/Yaniv Start time Last Medication Dose Route Stop Time Status Admin Albuterol Sulfate 3 ML BID 09/20 2200 AC 09/26 INH 1019 Ampicillin Sodium/ 1,500 MG Q6 09/20 0600 DC 09/25 Sulbactam Sodium IV 0527 Sodium Chloride 100 ML Enoxaparin Sodium 40 MG DAILY 09/21 1000 AC 09/26 SC 1008 Insulin Aspart 4 UNITS .STK-MED ONE 09/25 2144 DC SC 09/25 2145 Insulin Human Regular 4 UNITS .STK-MED ONE 09/26 0221 DC IV 09/26 0222 Insulin Human Regular 4 UNITS .STK-MED ONE 09/25 2147 DC IV 09/25 2148 Insulin Human Regular 4 UNITS .STK-MED ONE 09/25 1730 DC IV 09/25 1731 Insulin Human Regular 0 Q4 09/21 1400 AC 09/26 SC 1011 Levetiracetam 750 MG Q12 09/20 1000 AC 09/26 Sodium Chloride 100 ML IV 1007 Metoprolol Tartrate 2.5 MG Q8 PRN 09/26 0630 AC 09/26 IV 0640 Pantoprazole Sodium 40 MG BID 09/20 1000 AC 09/26 IV 1007 Zinc Oxide 1 GUY BID 09/24 2200 AC 09/[address] Scan Findings: PATIENT: RO BOWEN PRESENT AGE: 41 PATIENT ACCOUNT NO: [id number] : 76 LOCATION: [facility] ORDERING PHYSICIAN: HARMONY MEADOWS MD SERVICE DATE: 09/26/16- EXAM TYPE: CAT - CT HEAD WO IV CONTRAST EXAMINATION: CT HEAD WITHOUT CONTRAST CLINICAL INFORMATION: 41-year-old female with recent anoxic brain injury in the setting of overdose. Patient unresponsive and intubated. COMPARISON: Head CT from 09/19/2016. TECHNIQUE: Contiguous axial imaging was performed from the skull base to vertex without intravenous administration of contrast. DLP: 645 mGy-cm FINDINGS: Again noted is a slight decrease in the wppt-aauzu-tfsjj matter differentiation of each cerebral hemisphere and relatively low attenuation at the level of the basal ganglia (more specifically putamen and caudate head), bilaterally, findings that can be seen in anoxic-ischemic brain injury. No acute intracranial hemorrhage or extra-axial fluid collection. The ventricles have normal size and configuration. The basilar cisterns are normal. The calvarium is intact. There is partial opacification of right mastoid air cells, a new finding compared to 09/19/2016. Also, there are layering secretions within the nasal cavity, nasopharynx, posterior ethmoid air cells and sphenoid sinuses. The orbits and globes are unremarkable. IMPRESSION: 1. No acute intracranial hemorrhage. 2. Again noted is decreased aebn-uggtj-ymrzq matter differentiation of the cerebral hemispheres. Also, there is decreased attenuation of basal ganglia -- as may be seen in hypoxic-ischemic brain injury. DICTATED BY: BETTY COATES MD DATE/TIME DICTATED:09/26/161758 TIPPLE OILER:COLIN DATE/TIME TRANSCRIBED:09/26/161758 CONFIDENTIAL, DO NOT COPY WITHOUT APPROPRIATE AUTHORIZATION. <Electronically signed in Other Vendor System> SIGNED BY: BETTY COATES MD 09/26/16 1818 Impression/Plan Impression/Problem List Impression: Ms Bowen is a 41 year old female with past medical history of diabetes, hypertension, gastroparesis and depression who was BIBA after she was found unresponsive and covered in her vomitus at home on 09/19/2016. She is admitted in ICU for closer monitoring. #Altered mental status status post hypoxic encephalopathy as a result of medication overdose. -Limited response to Narcan on 09/20/2016. -Urine positive for opiates and benzodiazepine. Repeated urine tox revealed decrease in benzodiazepines concentration more than 800 -Neurology consultation was obtained, thanks the recommendation Abnormal EEG due to diffuse background slowing suggestive of cerebral dysfunction with suggestive structural abnormality within the left frontotemporal region. -An EEG has been ordered for Wednesday09/28/2016 -IV Protonix and daily oral care. #Brief seizure -Keppra increased 1000 mg every 12. -Continue electrolyte replacement -A repeat head CT was ordered for this afternoon. #Acute hypoxic respiratory failure secondary anoxic brain injury. -Continue intubation. Repeat chest x-ray in a.m. while intubated. -Off IV fluid -Continue tube feed, increase rate to 65 -Last ABG 09/24/16: 7.53/26/113/21, if I O2 was decreased from 50 to 30 #Aspiration pneumonia -Continue monitor CBC -Discontinue Unasyn -Blood culture negative so far, respiratory culture positive for mixed marisol, urine culture positive for staph coagulase negative sensitive -Patient afebrile. #History of diabetes. -Will adjust the sliding scale, avoid strict glucose control -Tube feedings, nutrition consultation was obtained -Fingersticks 207, 250, 214,254. -May consider revising NovoLog scale sliding scale in a.m. #Hypertension -Target blood pressure systolic less than 160 confirmed by Oleksandr Howe MD. We gave the patient hydralazine 5 mg owing to elevation in pressures. Since she was hydralazine naive she has responded well. We'll continue to monitor overnight. #DVT prophylaxis -ALPS, Lovenox #Diet -Tube feeding #Code full Problem List: 1. Anoxic brain injury 2. Aspiration pneumonia 3. Respiratory failure Pain Ratin Tomorrow's Labs & Rationales: CBC ICU Bundle C-Xray Plan DVT/Prophylaxis: mechanical
[2016-09-26 08:00] VITALS: BP 180/86
--- NOTE | 2016-09-26 08:10 | PN- CRCU ---
Subjective HPI/Critical Care Issues: The patient remains on mechanical ventilation. She opens her eyes but not to commands. She is not tracking movements with her eyes. She has had decorticate posturing. The patient has been hypertensive intermittently, however her blood pressure remains uncontrolled. She has been afebrile. She has had some twitching movements noted this morning by nursing. No generalized seizures were reported. Objective Current Medications: Current Medications Sig/Yaniv Start time Last Medication Dose Route Stop Time Status Admin Albuterol Sulfate 3 ML BID 09/20 2200 AC 09/25 INH 1947 Ampicillin Sodium/ 1,500 MG Q6 09/20 0600 DC 09/25 Sulbactam Sodium IV 0527 Sodium Chloride 100 ML Enoxaparin Sodium 40 MG DAILY 09/21 1000 09/25 SC 1021 Insulin Aspart 4 UNITS .STK-MED ONE 09/25 2144 DC SC 09/25 2145 Insulin Human Regular 4 UNITS .STK-MED ONE 09/25 2147 DC IV 09/25 2148 Insulin Human Regular 4 UNITS .STK-MED ONE 09/25 1730 DC IV 09/25 1731 Insulin Human Regular 2 UNITS .STK-MED ONE 09/25 1015 DC IV 09/25 1016 Insulin Human Regular 0 Q4 09/21 1400 AC 09/26 SC 0634 Levetiracetam 750 MG Q12 / 1000 09/25 Sodium Chloride 100 ML IV 2144 Metoprolol Tartrate 2.5 MG Q8 PRN 09/26 0630 UNVr 09/26 IV 0640 Pantoprazole Sodium 40 MG BID / 1000 AC 09/25 IV 2146 Zinc Oxide 1 GUY BID 09/24 2200 09/25 TOP 2147 Vital Signs & I&O Last 24 Hrs of Vitals and I&O: Vital Signs Date Time Temp Pulse Resp B/P B/P Pulse O2 O2 Flow FiO2 Mean Ox Delivery Rate 09/26 0607 26 09/26 0400 98 Ventilator 09/26 0324 26 09/26 0049 26 09/26 0000 99 Ventilator 09/26 0000 98.2 112 18 180/96 99 Ventilator 09/25 2230 26 09/25 2035 98 Ventilator 09/25 1940 26 09/25 1645 30 09/25 1600 98.5 108 16 190/100 100 Ventilator 30% 09/25 1600 100 Ventilator 30% 09/25 1345 30 09/25 1200 110 Ventilator 30% 09/25 1019 30 09/25 0800 98.1 106 16 186/94 100 Ventilator 30% 09/25 0800 100 Ventilator 30% 09/25 0748 30 09/25 0700 98.9 109 17 186/94 100 Ventilator 30% Intake & Output 09/26 0800 09/26 0000 09/25 1600 Intake Total 753 910 Output Total 660 Balance 93 910 Intake, IV 150 120 Intake, Tube 353 540 Feeding Intake, Tube 250 250 Irrigant Number 1 Bowel Movements Output, Urine 660 General Appearance: intubated Head: atraumatic, normal appearance Ears, Nose, Throat: normal pharynx, normal ENT inspection, perrla Neck: normal inspection, supple Respiratory: normal breath sounds, no wheezes, ronchi or rales Cardiovascular: regular rate/rhythm Gastrointestinal: normal bowel sounds, soft, non-tender Extremities: normal inspection, normal capillary refill, normal range of motion, no edema Cranial Nerves: Sluggish PERRL Skin: intact, normal color, warm/dry Results Last 24 Hrs of Lab Results: Laboratory Tests 09/26/16 0425: Anion Gap 14, Estimated GFR > 60, Glucose 224 H, Calcium 9.0, Phosphorus 5.6 H , Magnesium 2.3, Total Bilirubin 0.5, AST 55 H, ALT 78 H, Albumin 3.4 L, CBC w Diff NO MAN DIFF REQ, RBC 4.83, MCV 82.8, MCH 27.1, RDW 17.4 H, MPV 9.2, Gran % 76.0 H, Lymphocytes % 15.7 L, Monocytes % 7.0, Eosinophils % 1.0, Basophils % 0.3, Absolute Granulocytes 11.1 H, Absolute Lymphocytes 2.3, Absolute Monocytes 1.0 H, Absolute Eosinophils 0.1, Absolute Basophils 0.1, PUBS MCHC 32.7 L, Urine Opiates Screen < 100.00, Methadone Screen < 40, Barbiturate Screen < 60, Ur Phencyclidine Scrn < 6.00, Amphetamines Screen < 100, U Benzodiazepines Scrn > 800 H, Urine Cocaine Screen < 50, Urine Cannabis Screen < 5.00 Diagnostic Data CXR Findings: Improved aeration since the prior chest radiograph dated 09/22/2016. The tip of the endotracheal tube is located 3.4 cm above the level of the maureen. No other significant change. Specifically, no new abnormalities. Impression/Plan Impression/Plan Impression/Plan: 1. Anoxic brain injury with decreased mental status and comatose condition with profound hypoglycemia. 2. Vomiting with aspiration pneumonia and respiratory failure, leading to hypoxic brain injury. 3. Vasomotor instability due to probable brainstem abnormalities. 4. History of diabetes, hypertension, gastroparesis and electrolyte abnormalities. 5. Previous history of low back pain and depression. 6. 14 mm bony lesion and T5 vertebral body lesion which needs to be followed up in the future. 7. History of significant narcotic use. Recommendations: * Continue with mechanical ventilation. * Please request repeat neurologic evaluation and recommendations. * Monitor Accu-Cheks. * Continue seizure precautions. * Monitor off antibiotics. * Continue to follow urine toxicology screen. * Continue ventilator bundle to minimize risk of ventilator associated pneumonia. * Continue DVT/GI prophylaxis. * Follow up a.m. chest x-ray results. * Continue all supportive care. * Prognosis poor.
--- NOTE | 2016-09-26 14:43 | PN- Neurology ---
Subjective Subjective: Patient had twitching over night but not clear if it was truly a seizure. Review of Systems Comments: Unable to obtain Objective Vital Signs and I&Os Vital Signs Date Time Temp Pulse Resp B/P B/P Pulse O2 O2 Flow FiO2 Mean Ox Delivery Rate 09/26 1200 98 Ventilator 25% 09/26 1058 25 09/26 0800 100 Ventilator 25% 09/26 0800 98.5 114 18 180/86 100 Ventilator 25% 09/26 0756 25 09/26 0607 26 09/26 0400 98 Ventilator 09/26 0324 26 09/26 0049 26 09/26 0000 99 Ventilator 09/26 0000 98.2 112 18 180/96 99 Ventilator 09/25 2230 26 09/25 2035 98 Ventilator 09/25 1940 26 09/25 1645 30 09/25 1600 98.5 108 16 190/100 100 Ventilator 30% 09/25 1600 100 Ventilator 30% Intake & Output 09/26 1600 09/26 0800 09/26 0000 09/25 1600 09/25 0800 09/25 0000 Intake Total 757 753 910 930 960 Output Total 280 987 8580 675 Balance 132 93 910 -600 285 Intake, IV 150 120 200 230 Intake, Oral 0 Intake, Other 480 480 Intake, Tube 481 353 540 Feeding Intake, Tube 276 250 250 250 250 Irrigant Number 1 Bowel Movements Output, Stool 180 Output, Urine 729 629 7971 675 Physical Exam: Intubated, not sedated, Unresponsive. Pupils are 7mm equal and reactive to light dose sluggish. Corneal reflexes are decreased bilaterally. There is Roving eye movements There is positive Christina aron There is triple flexion in aron LE there is aron decerebrate posturing Current Medications: Current Medications Sig/Yaniv Start time Last Medication Dose Route Stop Time Status Admin Albuterol Sulfate 3 ML BID 09/20 2200 AC 09/26 INH 1019 Enoxaparin Sodium 40 MG DAILY 09/21 1000 AC 09/26 SC 1008 Insulin Aspart 4 UNITS .STK-MED ONE 09/26 2143 DC SC 09/25 2144 Insulin Human Regular 4 UNITS .STK-MED ONE 09/26 0632 DC IV 09/26 0633 Insulin Human Regular 4 UNITS .STK-MED ONE 09/26 0221 DC IV 09/26 0222 Insulin Human Regular 4 UNITS .STK-MED ONE 09/25 2146 DC IV 09/25 2148 Insulin Human Regular 4 UNITS .STK-MED ONE 09/25 1730 DC IV 09/25 1731 Insulin Human Regular 0 Q4 09/21 1400 AC 09/26 SC 1410 Levetiracetam 750 MG Q12 09/20 1000 AC 09/26 Sodium Chloride 100 ML IV 1007 Metoprolol Tartrate 2.5 MG Q8 PRN 09/26 0630 AC 09/26 IV 0640 Pantoprazole Sodium 40 MG BID 09/20 1000 AC 09/26 IV 1007 Zinc Oxide 1 GUY BID 09/24 2200 AC 09/26 TOP 1008 Results Last 24 Hours of Lab Results: Laboratory Tests 09/26 0425 Chemistry Sodium (137 - 145 mmol/L) 138 Potassium (3.5 - 5.1 mmol/L) 4.7 Chloride (98 - 107 mmol/L) 102 Carbon Dioxide (22 - 30 mmol/L) 23 Anion Gap (5 - 16) 14 BUN (7 - 17 mg/dL) 11 Creatinine (0.5 - 1.0 mg/dL) 0.5 Estimated GFR (>60 ml/min) > 60 Glucose (65 - 99 mg/dL) 224 H Calcium (8.4 - 10.2 mg/dL) 9.0 Phosphorus (2.5 - 4.5 mg/dL) 5.6 H Magnesium (1.6 - 2.3 mg/dL) 2.3 Total Bilirubin (0.2 - 1.3 mg/dL) 0.5 AST (14 - 36 U/L) 55 H ALT (9 - 52 U/L) 78 H Albumin (3.5 - 5.0 g/dL) 3.4 L Hematology CBC w Diff NO MAN DIFF REQ WBC (4.8 - 10.8 /CUMM) 14.6 H RBC (4.20 - 5.40 /CUMM) 4.83 Hgb (12.0 - 16.0 G/DL) 13.1 Hct (37 - 47 %) 40.0 MCV (81.0 - 99.0 FL) 82.8 MCH (27.0 - 31.0 PG) 27.1 RDW (11.5 - 14.5 %) 17.4 H Plt Count (130 - 400 /CUMM) 318 MPV (7.4 - 10.4 FL) 9.2 Gran % (42.2 - 75.2 %) 76.0 H Lymphocytes % (20.5 - 51.1 %) 15.7 L Monocytes % (1.7 - 9.3 %) 7.0 Eosinophils % (0 - 5 %) 1.0 Basophils % (0.0 - 2.0 %) 0.3 Absolute Granulocytes (1.4 - 6.5 /CUMM) 11.1 H Absolute Lymphocytes (1.2 - 3.4 /CUMM) 2.3 Absolute Monocytes (0.10 - 0.60 /CUMM) 1.0 H Absolute Eosinophils (0.0 - 0.7 /CUMM) 0.1 Absolute Basophils (0.0 - 0.2 /CUMM) 0.1 PUBS MCHC (33.0 - 37.0 G/DL) 32.7 L Toxicology Urine Opiates Screen (>2000 NG/ML) < 100.00 Methadone Screen (>300 NG/ML) < 40 Barbiturate Screen (>200 NG/ML) < 60 Ur Phencyclidine Scrn (>25 NG/ML) < 6.00 Amphetamines Screen (>1000 NG/ML) < 100 U Benzodiazepines Scrn (>200 NG/ML) > 800 H Urine Cocaine Screen (>300 NG/ML) < 50 Urine Cannabis Screen (>50 NG/ML) < 5.00 Recent Imaging Studies: CT head 09/19/16: Diffuse loss of pablo-white matter differentiation and diffuse sulcal effacement within the bilateral cerebral hemispheres, concerning for global anoxic brain injury. No acute intracranial hemorrhage, mass or mass effect or abnormal extra-axial fluid collections. Assessment/Plan Assessment: The patient is a 41-year-old woman setting with opiate and benzo overdose seemingly having a picture of diffused hypoxic brain injury. She had ? twitching episodes overnight but unclear if it was real seizure Increase Keppra to 1000mg bid EEG on Wednesday Cannot have MRI due to ventilator not compatible Obtain repeat CT head w/o contrast Poor prognosis Plan: see above
--- NOTE | 2016-09-26 14:50 | NUR ---
PT CONTINUES TO HAVE SBP 180-200, ST 110-120'S. DISCUSSED W DR MEADOWS AND TORIBIO. HYDRALAZINE 5 IVP TO BE GIVEN TIMES 1.
--- NOTE | 2016-09-26 14:51 | NUR ---
NEURO TO BEDSIDE TO ASSESS PT. PT CONTINUES TO BE HYPER-REFLEXIVE, OTHERWISE NO PURPOSEFUL MOVEMENT OR FOLLOWING OF COMMANDS. EYES OPENING SPONTANEOUSLY, BUT DOES NOT TRACK. PT BUE ARE RIGID. PERRL 3MM.
--- NOTE | 2016-09-26 15:19 | RADIOLOGY REPORT ---
EXAMINATION: XR PORTABLE CHEST CLINICAL INFORMATION: Endotracheal tube placement. COMPARISON: 09/21/2010, 09/22/2010 and 09/24/2016 TECHNIQUE: Portable AP view of the chest was obtained. FINDINGS: Lungs are well expanded and pulmonary disease has significantly improved compared to 09/21/2016. Mild residual hazy, opacity is present in the retrocardiac region of the left lower lobe. There is linear opacity of atelectasis in the right base. No evidence of pulmonary edema or pleural effusion. The endotracheal tube is located 5.2 cm above the maureen. The enteric tube extends below the diaphragm, into the stomach and beyond the [id number]-[id number]. The visualized bones are intact. IMPRESSION: 1. The endotracheal tube is located 5.2 cm above the maureen. 2. Pulmonary disease has significantly improved compared to 09/21/2010.
--- NOTE | 2016-09-26 15:30 | NUR ---
PT'S BP S/P HYDRALAZINE 5MG 148/70
[2016-09-26 16:00] VITALS: BP 161/90
--- NOTE | 2016-09-26 16:12 | NUR ---
PER NEURO, EEG AND CT OF HEAD ORDERED AND KEPPRA DOSE INCRESED TO 1000MG.
--- NOTE | 2016-09-26 18:18 | CT SCAN REPORT ---
EXAMINATION: CT HEAD WITHOUT CONTRAST CLINICAL INFORMATION: 41-year-old female with recent anoxic brain injury in the setting of overdose. Patient unresponsive and intubated. COMPARISON: Head CT from 09/19/2016. TECHNIQUE: Contiguous axial imaging was performed from the skull base to vertex without intravenous administration of contrast. DLP: 645 mGy-cm FINDINGS: Again noted is a slight decrease in the bdmf-byvvs-dseiw matter differentiation of each cerebral hemisphere and relatively low attenuation at the level of the basal ganglia (more specifically putamen and caudate head), bilaterally, findings that can be seen in anoxic-ischemic brain injury. No acute intracranial hemorrhage or extra-axial fluid collection. The ventricles have normal size and configuration. The basilar cisterns are normal. The calvarium is intact. There is partial opacification of right mastoid air cells, a new finding compared to 09/19/2016. Also, there are layering secretions within the nasal cavity, nasopharynx, posterior ethmoid air cells and sphenoid sinuses. The orbits and globes are unremarkable. IMPRESSION: 1. No acute intracranial hemorrhage. 2. Again noted is decreased rzvg-tztqm-wzkzc matter differentiation of the cerebral hemispheres. Also, there is decreased attenuation of basal ganglia -- as may be seen in hypoxic-ischemic brain injury.
[2016-09-27 00:26] VITALS: BP 177/88
[2016-09-27 05:16] LABS: ABSOLUTE BASOPHIL COUNT 0 /CUMM (0.0-0.2); ABSOLUTE EOSINOPHIL COUNT 0.1 /CUMM (0.0-0.7); ABSOLUTE GRANULOCYTE CT 9.3 /CUMM (1.4-6.5); ABSOLUTE LYMPH COUNT 2.5 /CUMM (1.2-3.4); ABSOLUTE MONOCYTE COUNT 1.1 /CUMM (0.10-0.60); BASOPHIL % 0.3 % (0.0-2.0); EOSINOPHIL % 1.1 % (0-5); GRANULOCYTE % 70.8 % (42.2-75.2); HEMATOCRIT 39.3 % (37-47); MEAN CORPUSCULAR HGB 27.1 PG (27.0-31.0); MEAN CORPUSCULAR HGB CONC 32.8 G/DL (33.0-37.0); MEAN CORPUSCULAR VOLUME 82.8 FL (81.0-99.0); MEAN PLATELET VOLUME 9.2 FL (7.4-10.4); PLATELET COUNT 342 /CUMM (130-400); RBC DISTRIBUTION WIDTH 17.5 % (11.5-14.5); RED BLOOD CELL CT 4.74 /CUMM (4.20-5.40); WHITE BLOOD CELL COUNT 13.1 /CUMM (4.8-10.8)
--- NOTE | 2016-09-27 06:34 | RADIOLOGY REPORT ---
EXAMINATION: CHEST 1 VIEW CLINICAL INFORMATION: Intubated. COMPARISON: September 26, 2016. TECHNIQUE: An AP view of the chest is provided. FINDINGS: The cardiac silhouette is not enlarged. And endotracheal tube is in place. The tip is approximately 5 cm above the maureen. An enteric tube is in place. The mediastinal and hilar contours are unremarkable. There are neither pleural effusions nor pneumothoraces. There are no consolidations. The osseous structures are unremarkable. IMPRESSION: Endotracheal tube and enteric tube in place. No consolidations.
[2016-09-27 08:00] VITALS: BP 160/80
--- NOTE | 2016-09-27 09:42 | PN- CRCU ---
Subjective HPI/Critical Care Issues: The patient remains intubated, off sedation. She has no purposeful movements. There was no seizure activity reported overnight. The repeat head CT showed no acute hemorrhage, with decreased kudc-wijkk-rfylp matter differentiation of the cerebral hemispheres with decreased attenuation of basal ganglia which may be seen in hypoxic-ischemic brain injury. Objective Current Medications: Current Medications Sig/Yaniv Start time Last Medication Dose Route Stop Time Status Admin Acetaminophen 1,000 MG Q6P PRN 09/26 2215 CAN N/A 1 UNIT IV Albuterol Sulfate 3 ML BID 09/20 2200 AC 09/27 INH 0837 Enoxaparin Sodium 40 MG DAILY 09/21 1000 AC 09/26 SC 1008 Hydralazine HCl 5 MG ONCE ONE 09/26 1445 DC 09/26 IV 09/26 1446 1454 Insulin Human Regular 6 UNITS .STK-MED ONE 09/26 2253 DC IV 09/26 2254 Insulin Human Regular 0 Q4 09/21 1400 AC 09/27 SC 0645 Ketorolac 30 MG ONCE ONE 09/26 2215 DC 09/26 Tromethamine IV 09/26 2216 2258 Levetiracetam 1,000 MG Q12 09/26 2200 AC 09/26 N/A 1 UNIT IV 2256 Levetiracetam 750 MG Q12 09/20 1000 DC 09/26 Sodium Chloride 100 ML IV 1007 Metoprolol Tartrate 2.5 MG Q8 PRN 09/26 0630 DC 09/26 IV 0640 Pantoprazole Sodium 40 MG BID / 1000 AC 09/26 IV 2259 Zinc Oxide 1 GUY BID 09/24 220 AC 09/26 TOP 2258 General Appearance: intubated Head: atraumatic, normal appearance Ears, Nose, Throat: normal pharynx, normal ENT inspection, perrla Neck: normal inspection, supple Respiratory: normal breath sounds, no wheezes, ronchi or rales Cardiovascular: regular rate/rhythm Gastrointestinal: normal bowel sounds, soft, non-tender Extremities: normal inspection, normal capillary refill, normal range of motion, no edema Skin: intact, normal color, warm/dry Vital Signs & I&O Last 24 Hrs of Vitals and I&O: Vital Signs Date Time Temp Pulse Resp B/P B/P Pulse O2 O2 Flow FiO2 Mean Ox Delivery Rate 09/27 0832 25 09/27 0800 93 Ventilator 25% 09/27 0800 99.6 116 14 160/80 97 Ventilator 25% 05 0633 25 09/27 0400 98 Ventilator 25% 09/27 0333 25 09/27 0053 25 09/27 0026 98.6 118 14 177/88 98 Ventilator 25% 05 2356 98 Ventilator 25% 09/26 2158 25 05 2000 96 Ventilator 25% 09/26 1929 25 09/26 1615 25 09/26 1600 98.7 123 18 161/90 97 Ventilator 25% 09/26 1600 97 Ventilator 25% 09/26 1454 116 184/90 05 1442 25 09/26 1200 98 Ventilator 25% 09/26 1058 25 Intake & Output 09/27 1600 09/27 0800 09/27 0000 Intake Total 739 813 Output Total 151 800 Balance 588 13 Intake, IV 0 170 Intake, Tube 489 393 Feeding Intake, Tube 250 250 Irrigant Number 1 Bowel Movements Output, Stool 1 Output, Urine 150 800 Impression/Plan Impression/Plan Impression/Plan: 1. Anoxic brain injury with decreased mental status and comatose condition. 2. Vomiting with aspiration pneumonia and respiratory failure, leading to hypoxic brain injury. 3. Vasomotor instability due to probable brainstem abnormalities. 4. History of diabetes, hypertension, gastroparesis and electrolyte abnormalities. 5. Previous history of low back pain and depression. 6. 14 mm bony lesion and T5 vertebral body lesion which needs to be followed up in the future. 7. History of significant narcotic use. Recommendations: * Continue with mechanical ventilation. * Appreciate neurology input. We'll follow recommendations. * Monitor Accu-Cheks. * Continue seizure precautions. * Monitor off antibiotics. * Continue to follow urine toxicology screen. * Continue ventilator bundle to minimize risk of ventilator associated pneumonia. * Continue DVT/GI prophylaxis. * Follow up a.m. chest x-ray results. * Continue all supportive care. * Prognosis poor.
--- NOTE | 2016-09-27 11:37 | PN- Resident CRCU ---
See Addendum Subjective HPI/CRCU Issues: Follow up: -Anoxic brain injury -Acute hypoxic respiratory failure related to severe anoxic brain injury -Diabetes mellitus, hypertension -Chronic low back pain on narcotics Patient was seen and examined this morning, she remains intubated, no overnight events reported by the nurse. Neuro evaluation was obtained yesterday with recommendation for repeating CT scan head and EEG on Wednesday. Chest x-ray this morning, OG-tube and endotracheal tube in place. 24 Hour Events: Temperature 98.9, MAXIMUM TEMPERATURE 98.9 Pulse lowest 110, highest 126 sinus rhythm Blood pressure lowest 114/67, highest 208/94 Mechanical ventilation A/C mode rate 14, peak flow 55, tidal volume 450, PEEP 5, O2 25% Intake 2349, output 1175 Objective Vital Signs & I&O Last 8 Hrs of Vitals and I&O: 111 Exam General Appearance: intubated Head: atraumatic, normal appearance Ears, Nose, Throat: normal ENT inspection Neck: normal inspection, supple Respiratory: normal breath sounds Cardiovascular: regular rate/rhythm Gastrointestinal: normal bowel sounds, soft, non-tender Extremities: normal inspection, normal capillary refill, normal range of motion, no edema Cranial Nerves: PERRL Current Medications: Current Medications Sig/Yaniv Start time Last Medication Dose Route Stop Time Status Admin Acetaminophen 1,000 MG ONCE ONE 09/27 1430 AC N/A 1 UNIT IV 09/27 1444 Acetaminophen 1,000 MG Q6P PRN 09/26 2215 CAN N/A 1 UNIT IV Albuterol Sulfate 3 ML BID 09/20 2200 AC 09/27 INH 0837 Enoxaparin Sodium 40 MG DAILY 09/21 1000 09/27 SC 1137 Hydralazine HCl 5 MG ONCE ONE 09/26 1445 DC 09/26 IV 09/26 1446 1454 Insulin Human Regular 2 UNITS .STK-MED ONE 09/27 0246 DC IV 09/27 0247 Insulin Human Regular 6 UNITS .STK-MED ONE 09/26 2253 DC IV 09/26 2254 Insulin Human Regular 0 Q4 09/21 1400 09/27 SC 1136 Ketorolac 30 MG ONCE ONE 09/26 2215 DC 09/26 Tromethamine IV 09/26 2216 2258 Levetiracetam 1,000 MG Q12 09/26 2200 09/27 N/A 1 UNIT IV 1136 Levetiracetam 750 MG Q12 09/20 1000 DC 09/26 Sodium Chloride 100 ML IV 1007 Metoprolol Tartrate 2.5 MG Q8 PRN 09/26 0630 DC 09/26 IV 0640 Pantoprazole Sodium 40 MG BID 09/20 1000 AC 09/27 IV 1136 Zinc Oxide 1 GUY BID 09/24 2200 AC 09/27 TOP 1138 Impression/Plan Impression/Problem List Impression: Ms Bowen is a 41 year old female with past medical history of diabetes, hypertension, gastroparesis and depression who was BIBA after she was found unresponsive and covered in her vomitus at home on 09/19/2016. She was admitted in ICU for closer monitoring. #Altered mental status status post hypoxic encephalopathy as a result of medication overdose. -Limited response to Narcan on 09/20/2016. -Urine positive for opiates and benzodiazepine. Repeated urine tox consistently revealed high benzodiazepines concentration -Neurology consultation was obtained, with recommendation for CT head without contrast and EEG on Wednesday CT head without contrast 09/26 IMPRESSION: 1. No acute intracranial hemorrhage. 2. Again noted is decreased hmye-mxeju-gjfrv matter differentiation of the cerebral hemispheres. Also, there is decreased attenuation of basal ganglia as may be seen in hypoxic-ischemic brain injury. CT head without contrast on admission 09/19 IMPRESSION: Diffuse loss of pablo-white matter differentiation and diffuse sulcal effacement within the bilateral cerebral hemispheres, concerning for global anoxic brain injury. No acute intracranial hemorrhage, mass or mass effect or abnormal extra- axial fluid collections. -EEG 09/21/16 Abnormal EEG due to diffuse background slowing suggestive of cerebral dysfunction with suggestive structural abnormality within the left frontotemporal region. No suggestion of subclinical seizures. -IV Protonix and daily oral care. #Brief seizure -Increase Keppra to 1000 mg IV twice a day -Continue electrolyte replacement #Acute hypoxic respiratory failure secondary anoxic brain injury. -Continue intubation. Repeat chest x-ray in a.m. while intubated. -Off IV fluid -Continue tube feed, rate to 65 -Last ABG 09/24/16: 7.53/26/113/21, if I O2 was decreased from 50 to 30 #Aspiration pneumonia -Continue monitor CBC -Discontinue Unasyn, monitor off antibiotic -Patient spiked fever today, will repeat blood culture -Blood culture negative, respiratory culture positive for mixed marisol, urine culture positive for staph coagulase negative mostly colonization #History of diabetes. -NovoLog sliding scale, avoid strict glucose control -Tube feedings, nutrition consultation was obtained #Hypertension -Target blood pressure systolic less than 160 #Transaminitis -Elevated liver function test since 09/25 AST 71<55<57 ALT 101<78<61 #DVT prophylaxis -ALPS, Lovenox #Diet -Tube feeding #Code full Problem List: 1. Respiratory failure 2. Aspiration pneumonia 3. Anoxic brain injury Pain Ratin Tomorrow's Labs & Rationales: ICU bundle, CBC Plan DVT/Prophylaxis: mechanical
[2016-09-27 16:00] VITALS: BP 144/69
--- NOTE | 2016-09-27 16:24 | NUR ---
TEMP 101.3, PT GIVEN TYLENOL IV X 1. BC X 2 AND UC SENT. RT TO OBTAIN RESP CULTURE.
--- NOTE | 2016-09-27 18:53 | NUR ---
RECTAL TEMP 103.6. PT GIVEN TYLENOL IV. STARTED ON COOLING BLANKET THERAPY. VANCO AND CEFTAZ ORDERED.
--- NOTE | 2016-09-27 19:37 | NUR ---
Wound Care follow-up: Patient previously seen by this show card writer for a fluid filled blister to her left buttock. At time of this assessment blister is 100% deroofed- wound measures 2 X 2.5cm, wound bed is pink and moist with no s/s of infection. Periwound remains red and blanchable. Area of incontinent dermititis is also noted to her inner buttocks. Desitin cream continues to be applied. A duoderm was placed to her right buttock. She remains on a catergory 2 mattress. Impression: Stage 2 left buttock Recommendations: Duoderm applied to left buttock wound- please change every 3-5 days and prn. Barrier cream can also be applied if duoderm unable to stay in place due to incontinence. Continue use of desitin to inner buttocks. Continue use of catergory 2 mattress- Nutrition following. Notify wound care with any further decline. Please follow all additional pressure injury guidelines.
[2016-09-28] VITALS: BP 170/80
--- NOTE | 2016-09-28 02:34 | NUR ---
2230= B/P 211/89. HR 98. 5MG HYDRALAZINE GIVEN MD HARRIS MADE AWARE. 7= B/P 183/78
[2016-09-28 05:04] LABS: ABSOLUTE BASOPHIL COUNT 0.1 /CUMM (0.0-0.2); ABSOLUTE EOSINOPHIL COUNT 0.2 /CUMM (0.0-0.7); ABSOLUTE GRANULOCYTE CT 10.4 /CUMM (1.4-6.5); ABSOLUTE LYMPH COUNT 2.9 /CUMM (1.2-3.4); ABSOLUTE MONOCYTE COUNT 1.2 /CUMM (0.10-0.60); BASOPHIL % 0.4 % (0.0-2.0); EOSINOPHIL % 1.5 % (0-5); GRANULOCYTE % 70.3 % (42.2-75.2); HEMATOCRIT 38.6 % (37-47); MEAN CORPUSCULAR HGB 27.2 PG (27.0-31.0); MEAN CORPUSCULAR HGB CONC 32.9 G/DL (33.0-37.0); MEAN CORPUSCULAR VOLUME 82.6 FL (81.0-99.0); MEAN PLATELET VOLUME 9.6 FL (7.4-10.4); PLATELET COUNT 365 /CUMM (130-400); RBC DISTRIBUTION WIDTH 17.1 % (11.5-14.5); RED BLOOD CELL CT 4.67 /CUMM (4.20-5.40); WHITE BLOOD CELL COUNT 14.9 /CUMM (4.8-10.8)
--- NOTE | 2016-09-28 06:47 | RADIOLOGY REPORT ---
EXAMINATION: CHEST 1 VIEW CLINICAL INFORMATION: Intubated. COMPARISON: Multiple prior exams are reviewed. The most recent is from 09/27/2016. TECHNIQUE: An AP view of the chest is provided. FINDINGS: The cardiac silhouette is not enlarged. Endotracheal tube is in place. The tip is approximately 5.5 cm above the maureen. An enteric tube is in place. The tip overlies left upper quadrant, likely within the stomach. The mediastinal and hilar contours are unremarkable. There are neither pleural effusions nor pneumothoraces. There are no consolidations. The osseous structures are unremarkable. IMPRESSION: Endotracheal tube and enteric tube in place. No consolidations.
--- NOTE | 2016-09-28 07:06 | PN- Resident CRCU ---
See Addendum Subjective HPI/CRCU Issues: Follow up: -Anoxic brain injury -Acute hypoxic respiratory failure related to severe anoxic brain injury -Diabetes mellitus, hypertension -Chronic low back pain on narcotics -Ventilator associated pneumonia questionable Patient was seen and examined this morning, intubated, she opened her eyes but didn't respond to any verbal or painful stimulus, vegetative state. Patient developed fever yesterday with MAXIMUM TEMPERATURE of 102.9 mL was started on vancomycin and ceftaz for questionable ventilator associated pneumonia. This morning temperature is 99.4 Patient received 5 mg of hydralazine push for blood pressure 210/90 overnight 24 Hour Events: Temperature 99.4, MAXIMUM TEMPERATURE 102.9 Pulse was 90, highest 124 sinus rhythm Blood pressure lowest 121/59, highest 191/86 Intake 2572, output 2200 Mechanical ventilator A/C mode, rate 14, peak flow 55, tidal volume 450, PEEP 5, FiO2 25% saturating 99% Objective Vital Signs & I&O Last 8 Hrs of Vitals and I&O: 11 Exam General Appearance: intubated Head: atraumatic, normal appearance Ears, Nose, Throat: normal pharynx, normal ENT inspection Neck: normal inspection, supple, full range of motion Respiratory: chest non-tender, lungs clear Cardiovascular: regular rate/rhythm Gastrointestinal: normal bowel sounds, soft, non-tender Extremities: normal inspection, normal capillary refill, normal range of motion, no edema Cranial Nerves: Sluggish PERRL Skin: intact, normal color, warm/dry Skin Temp/Moisture Exam: Warm/Dry Current Medications: Current Medications Sig/Yaniv Start time Last Medication Dose Route Stop Time Status Admin Acetaminophen 1,000 MG Q8P PRN 09/27 1845 AC 09/27 N/A 1 UNIT IV 1800 Acetaminophen 1,000 MG ONCE ONE 09/27 1430 DC 09/27 N/A 1 UNIT IV 09/27 1444 1501 Albuterol Sulfate 3 ML BID 09/20 2200 AC 09/28 INH 0748 Ceftazidime 1,000 MG Q8H 09/27 1900 AC 09/28 IV 1118 Enoxaparin Sodium 40 MG DAILY 09/21 1000 AC 09/28 SC 1003 Hydralazine HCl 5 MG ONCE ONE 09/27 2244 DC 09/27 PO 09/27 Hydralazine HCl 20 MG .STK-MED ONE 09/27 2232 DC IM 09/27 2233 Insulin Human Regular 6 UNITS .STK-MED ONE 09/28 0222 DC IV 09/283 Insulin Human Regular 4 UNITS .STK-MED ONE 09/28 2231 DC IV 09/27 2232 Insulin Human Regular 0 Q4 09/21 1400 AC 09/28 SC 1019 Levetiracetam 1,000 MG Q12 09/26 2200 AC 09/28 N/A 1 UNIT IV 1003 Pantoprazole Sodium 40 MG BID 09/20 1000 AC 09/28 IV 1003 Vancomycin HCl 1,000 MG DAILY@1900 09/27 1900 AC 09/27 Sodium Chloride 250 ML IV 1900 Zinc Oxide 1 GUY BID 09/24 2200 AC 09/28 TOP 1019 Impression/Plan Impression/Problem List Impression: Ms Bowen is a 41 year old female with past medical history of diabetes, hypertension, gastroparesis and depression who was BIBA after she was found unresponsive and covered in her vomitus at home on 09/19/2016. She was admitted in ICU for closer monitoring. #Altered mental status status post hypoxic encephalopathy as a result of medication overdose. -Limited response to Narcan on 09/20/2016. -Urine positive for opiates and benzodiazepine. Repeated urine tox consistently revealed high benzodiazepines concentration -Neurology consultation was obtained, with recommendation for CT head without contrast and EEG on Wednesday CT head without contrast 09/26 IMPRESSION: 1. No acute intracranial hemorrhage. 2. Again noted is decreased adzb-vusso-iweae matter differentiation of the cerebral hemispheres. Also, there is decreased attenuation of basal ganglia as may be seen in hypoxic-ischemic brain injury. CT head without contrast on admission 09/19 IMPRESSION: Diffuse loss of pablo-white matter differentiation and diffuse sulcal effacement within the bilateral cerebral hemispheres, concerning for global anoxic brain injury. No acute intracranial hemorrhage, mass or mass effect or abnormal extra- axial fluid collections. -EEG 09/21/16 Abnormal EEG due to diffuse background slowing suggestive of cerebral dysfunction with suggestive structural abnormality within the left frontotemporal region. No suggestion of subclinical seizures. -IV Protonix and daily oral care. #Brief seizure -Continue Keppra to 1000 mg IV twice a day -Continue electrolyte replacement #Acute hypoxic respiratory failure secondary anoxic brain injury. -Continue intubation. Repeat chest x-ray in a.m. while intubated. -Off IV fluid -Continue tube feed, rate to 65 -Last ABG 09/24/16: 7.53/26/113/21, if I O2 was decreased from 50 to 30 #Aspiration pneumonia -Patient was initially treated for aspiration pneumonia with Unasyn, was discontinued on 09/25 -Blood culture negative, respiratory culture positive for mixed marisol, urine culture positive for staph coagulase negative mostly colonization #Ventilator associated pneumonia -Patient spiked fever yesterday with Tmax 102.9 -Patient is on mechanical ventilator for 9 days -We started ceftaz and vancomycin Day #2 -Follow up on cultures #History of diabetes. -NovoLog sliding scale, avoid strict glucose control -Tube feedings, nutrition consultation was obtained #Hypertension -Target blood pressure systolic less than 160 #Transaminitis -Elevated liver function test since 09/25 AST 57<71<55<57 ALT 98<101<78<61 #DVT prophylaxis -ALPS, Lovenox #Diet -Tube feeding #Code full Problem List: 1. Respiratory failure 2. Anoxic brain injury 3. Aspiration pneumonia Pain Ratin Tomorrow's Labs & Rationales: ICU bundle, CBC Plan DVT/Prophylaxis: mechanical
[2016-09-28 08:00] VITALS: BP 170/88
--- NOTE | 2016-09-28 13:45 | PN- CRCU ---
Subjective HPI/Critical Care Issues: Patient was seen and examined this morning, intubated, she opened her eyes but didn't respond to any verbal or painful stimulus, vegetative state. Patient developed fever yesterday with MAXIMUM TEMPERATURE of 102.9 mL was started on vancomycin and ceftaz for questionable ventilator associated pneumonia. This morning temperature is 99.4 Patient received 5 mg of hydralazine push for blood pressure 210/90 overnight 24 Hour Events: Temperature 99.4, MAXIMUM TEMPERATURE 102.9 Pulse was 90, highest 124 sinus rhythm Blood pressure lowest 121/59, highest 191/86 Intake 2572, output 2200 Mechanical ventilator A/C mode, rate 14, peak flow 55, tidal volume 450, PEEP 5, FiO2 25% saturating 99% Objective Current Medications: Current Medications Sig/Yaniv Start time Last Medication Dose Route Stop Time Status Admin Acetaminophen 1,000 MG Q8P PRN 09/27 1845 AC 09/27 N/A 1 UNIT IV 1800 Acetaminophen 1,000 MG ONCE ONE 09/27 1430 DC 09/27 N/A 1 UNIT IV 09/27 1444 1501 Albuterol Sulfate 3 ML BID 09/20 2200 AC 09/28 INH 0748 Ceftazidime 1,000 MG Q8H 09/27 1900 AC 09/28 IV 1118 Enoxaparin Sodium 40 MG DAILY 09/21 1000 AC 09/28 SC 1003 Hydralazine HCl 5 MG ONCE ONE 09/27 2245 DC 09/27 PO 09/27 2246 2230 Hydralazine HCl 20 MG .STK-MED ONE 09/27 2233 DC IM 09/27 2234 Insulin Human Regular 6 UNITS .STK-MED ONE 09/28 0222 DC IV 09/28 0223 Insulin Human Regular 4 UNITS .STK-MED ONE 09/27 2232 DC IV 09/27 2233 Insulin Human Regular 0 Q4 / 1400 AC 09/28 SC 1019 Levetiracetam 1,000 MG Q12 09/26 2200 AC 09/28 N/A 1 UNIT IV 1003 Pantoprazole Sodium 40 MG BID 09/20 1000 AC 09/28 IV 1003 Vancomycin HCl 1,000 MG DAILY@1900 05/14 1900 AC 09/27 Sodium Chloride 250 ML IV 1900 Zinc Oxide 1 GUY BID 09/24 2200 AC 09/28 TOP 1019 Vital Signs & I&O Last 24 Hrs of Vitals and I&O: Vital Signs Date Time Temp Pulse Resp B/P B/P Pulse O2 O2 Flow FiO2 Mean Ox Delivery Rate 09/28 1200 96 Ventilator 09/28 1059 25 09/28 0800 96 Ventilator 09/28 0800 97.8 102 18 170/88 96 Ventilator / 0757 25 09/28 0602 25 09/28 0400 98 Ventilator 25% 09/28 0343 30 09/28 0029 25 09/28 0000 98.5 94 14 170/80 99 Ventilator 25% 09/28 0000 99 Ventilator 25% 09/27 2230 98 211/89 09/27 2208 25 09/27 2000 99 Ventilator 25% 09/27 1912 25 09/27 1903 102.5 09/27 1800 103.6 09/27 1651 25 09/27 1630 100.9 09/27 1600 96 Ventilator 25% 09/27 1600 100.9 118 18 144/69 96 Ventilator 25% 09/27 1501 101.3 Intake & Output 09/28 1600 09/28 0800 05 0000 Intake Total 770 1035 Output Total 600 750 Balance 170 285 Intake, IV 20 510 Intake, Oral 0 0 Intake, Other 40 Intake, Tube 460 400 Feeding Intake, Tube 250 125 Irrigant Number 1 0 Bowel Movements Output, Urine 600 750 Impression/Plan Impression/Plan Impression/Plan: General Appearance: intubated Head: atraumatic, normal appearance Neck: normal inspection Respiratory: lungs clear Cardiovascular: regular rate/rhythm Gastrointestinal: normal bowel sounds, soft, non-tender Extremities: normal inspection, normal capillary refill, no edema Cranial Nerves: dilated pupil, gag present has at times decorticate posture Skin: intact, normal color, warm/dry Urine tox noted still has benzo onboard Cxr nil acute IMPRESSION This is a lady with multiple medical problems including diabetes, complications from diabetes including gastroparesis per history, but pressure history, chronic low back pain, migraine, urinary incontinence, GERD, narcotic use and benzodiazepine use followed by pain Center per the history noted in the house staff's note now comes in with * Anoxic brain injury - Significant decreased mental status with comatose condition with profound hypoglycemia now with significant anoxic brain injury as noted in the CAT scan and physical exam. Patient did not really respond to Narcan. Differential diagnoses include hypoglycemia from her diabetes medication versus benzodiazepine overdose versus narcotic overdose intentionally on a nonintentional is unknown at this time. Vomiting with aspiration pneumonia leading to hypoxic brain injury as well as a possibility * Respiratory failure related to severe anoxic brain injury * High fever related to brain stem issues prob * Sig vasomotor instablity prob due to brain stem issues * Significant vomiting upon admission or prior to admission with aspiration pneumonitis * History of diabetes, hypertension, significant hypokalemia, gastroparesis * Previous history of low back pain and depression * 14 mm bony lesion and T5 vertebral body which needs to be followed in the future * History of sig narcotic use * Significant history of gastroparesis now with the coffee ground REC Continue mechanical ventilator Please order quantitative benzo level today Check fingerstick Watch for any seizure dc vanco and cont ceftaz check lower ext doppler and abd ultrasound to eval for any issues to eval fever Keep the head of bed elevated, periodex oral care and ppi daily Aggressive oral suctioning Prog poor and discussed with pts sister and updated Check urine tox again in am DVT prophylaxis We will follow. Patient is critically ill total time spent 40 minutes.
--- NOTE | 2016-09-28 14:03 | ELECTROENCEPHALOGRAM REPORT ---
Electroencephalogram Report Electroencephalogram Results Date of service: 09/28/16 [employer] Project Coordination Specialist: Fiona EEG Number: [id number] Test Utilizes: 10-20 system, 21 lead 18 channel digital recording Pertinent Hx/Physical/Neuro Findings/Clin Diagnosis: Encephalopathy. Rule out seizure. Inpatient Medications: Current Medications Sig/Yaniv Start time Last Medication Dose Route Stop Time Status Admin Acetaminophen 1,000 MG Q8P PRN 09/27 1845 AC 09/27 N/A 1 UNIT IV 1800 Acetaminophen 1,000 MG ONCE ONE 09/27 1430 DC 09/27 N/A 1 UNIT IV 09/27 1444 1501 Albuterol Sulfate 3 ML BID 09/20 2200 AC 09/28 INH 0748 Ceftazidime 1,000 MG Q8H 09/27 1900 AC 09/28 IV 1118 Enoxaparin Sodium 40 MG DAILY 09/21 1000 AC 09/28 SC 1003 Hydralazine HCl 5 MG ONCE ONE 09/27 2245 DC 09/27 PO 09/27 2246 2230 Hydralazine HCl 20 MG .STK-MED ONE 09/27 2233 DC IM 09/27 2234 Insulin Human Regular 6 UNITS .STK-MED ONE 09/28 0222 DC IV 09/28 0223 Insulin Human Regular 4 UNITS .STK-MED ONE 09/27 2232 DC IV 09/27 2233 Insulin Human Regular 0 Q4 /08 1400 AC 09/28 SC 1401 Levetiracetam 1,000 MG Q12 09/26 2200 AC 09/28 N/A 1 UNIT IV 1003 Pantoprazole Sodium 40 MG BID 09/20 1000 AC 09/28 IV 1003 Vancomycin HCl 1,000 MG DAILY@1900 09/27 1900 AC 09/27 Sodium Chloride 250 ML IV 1900 Zinc Oxide 1 GUY BID 09/24 2200 AC 09/28 TOP 1019 Interpretation: The predominant posterior background rhythm consists of low voltage, poorly modulated 5-6 cps activity. Lower voltage faster frequencies are seen over the anterior head regions bilaterally. No focal, paroxysmal or lateralizing features were appreciated. Hyperentilation was deferred. Impression: Abnormal EEG due to generalized slowing of the background rhythm consistent with diffuse cerebral dysfunction. No focal or epileptiform features were noted.
[2016-09-28 16:00] VITALS: BP 170/92
--- NOTE | 2016-09-28 16:59 | ULTRASOUND REPORT ---
EXAMINATION: US TRIPLEX OF LOWER EXTREMITIES, BILATERAL CLINICAL INFORMATION: Bilateral lower extremity edema and swelling. COMPARISON: None. TECHNIQUE: Color-flow triplex imaging with spectral analysis and compression Doppler were performed on the lower extremities. FINDINGS: Respiratory variation, normal compression and augmented flow are noted throughout the lower extremities. The visualized common femoral vein, proximal greater saphenous vein, femoral vein, profunda femoral vein, popliteal vein and visualized mid calf venous segments show no evidence of deep venous thrombosis. There is no Espinal's cyst. IMPRESSION: Normal triplex scan without evidence of deep venous thrombosis involving the bilateral lower extremities.
--- NOTE | 2016-09-28 17:07 | ULTRASOUND REPORT ---
EXAMINATION: US ABDOMEN COMPLETE CLINICAL INFORMATION: New-onset fever. COMPARISON: CT abdomen and pelvis dated ; renal ultrasound dated 05/08/2011. TECHNIQUE: Real-time imaging of the abdominal viscera. FINDINGS: PANCREAS: Normal. The visualized pancreatic head and body are normal in appearance. The remainder of the pancreas is obscured from visualization by the overlying bowel gas. ABDOMINAL AORTA: The proximal segment is normal in caliber. INFERIOR VENA CAVA: Visualized portions are normal. LIVER: The liver demonstrates normal size, contour and generalized increase in echogenicity, with pericholecystic sparing. No focal lesion or intrahepatic biliary duct dilatation. GALLBLADDER: Normal. The gallbladder is physiologically distended without evidence of stones, sludge, polyps, wall thickening or pericholecystic fluid. COMMON BILE DUCT: Normal in caliber measuring 0.4 cm in diameter. RIGHT KIDNEY: Normal. No hydronephrosis. No renal calculi or focal parenchymal lesions. The kidney measures 11.9 cm in maximum dimension. LEFT KIDNEY: Normal. No hydronephrosis. No renal calculi or focal parenchymal lesions. The kidney measures 12.1 cm in maximum dimension. SPLEEN: Normal. The spleen measures 12.8 cm in maximum dimension. FREE FLUID: None. IMPRESSION: 1. There is generalized increase in hepatic echotexture, consistent with fatty infiltration or hepatocellular disease. Characteristic pericholecystic sparing favors fatty infiltration. Please correlate clinically. No focal hepatic mass or intrahepatic biliary dilatation is seen. 2. Limited ultrasound examination of the pancreatic tail.
[2016-09-29] VITALS: BP 150/88
[2016-09-29 05:14] LABS: ABSOLUTE BASOPHIL COUNT 0.1 /CUMM (0.0-0.2); ABSOLUTE EOSINOPHIL COUNT 0.3 /CUMM (0.0-0.7); ABSOLUTE GRANULOCYTE CT 11.9 /CUMM (1.4-6.5); ABSOLUTE LYMPH COUNT 2.5 /CUMM (1.2-3.4); ABSOLUTE MONOCYTE COUNT 0.8 /CUMM (0.10-0.60); BASOPHIL % 0.5 % (0.0-2.0); EOSINOPHIL % 1.7 % (0-5); GRANULOCYTE % 76.8 % (42.2-75.2); HEMATOCRIT 37.9 % (37-47); MEAN CORPUSCULAR HGB CONC 32.6 G/DL (33.0-37.0); MEAN PLATELET VOLUME 10.4 FL (7.4-10.4); PLATELET COUNT 365 /CUMM (130-400); RBC DISTRIBUTION WIDTH 17.1 % (11.5-14.5); RED BLOOD CELL CT 4.57 /CUMM (4.20-5.40); WHITE BLOOD CELL COUNT 15.6 /CUMM (4.8-10.8)
--- NOTE | 2016-09-29 06:57 | RADIOLOGY REPORT ---
EXAMINATION: CHEST 1 VIEW CLINICAL INFORMATION: Intubated. COMPARISON: September 28, 2016. TECHNIQUE: An AP view of the chest is provided. FINDINGS: The cardiac silhouette is not enlarged. An endotracheal tube is in place. The tip is approximately 5.5 cm above the maureen. An enteric tube is in place. The tip terminates within the left upper quadrant, likely within the stomach. The mediastinal and hilar contours are unremarkable. There are neither pleural effusions nor pneumothoraces. There are no consolidations. The osseous structures are unremarkable. IMPRESSION: Endotracheal tube and enteric tube in place. No consolidations.
--- NOTE | 2016-09-29 07:12 | PN- Resident CRCU ---
See Addendum Subjective HPI/CRCU Issues: Follow up: -Anoxic brain injury with possible pain stem dysfunction (hyperthermia) -Acute hypoxic respiratory failure related to severe anoxic brain injury -Diabetes mellitus, hypertension -Chronic low back pain on narcotics Patient was seen and examined this morning, intubated. No overnight events reported by the nurse. 24 Hour Events: Temperature 99.7, MAXIMUM TEMPERATURE 101.1 Pulse lowest 102, highest 116 sinus rhythm Blood pressure lowest 107/47, highest 179/77 A/C mechanical ventilation, rate 14, tidal volume 450, PEEP 5, peak flow 50, FiO2 25% Intake 2430, output 1700 Objective Vital Signs & I&O Last 8 Hrs of Vitals and I&O: 11 Exam General Appearance: intubated Head: atraumatic, normal appearance Ears, Nose, Throat: normal ENT inspection Neck: normal inspection, supple, full range of motion Respiratory: chest non-tender Cardiovascular: regular rate/rhythm Gastrointestinal: normal bowel sounds, soft, non-tender Extremities: normal inspection, normal capillary refill, normal range of motion, no edema Current Medications: Current Medications Sig/Yaniv Start time Last Medication Dose Route Stop Time Status Admin Acetaminophen 1,000 MG Q8P PRN 09/27 1845 AC 09/28 N/A 1 UNIT IV 2118 Albuterol Sulfate 3 ML BID 09/20 2200 AC 09/29 INH 0943 Ceftazidime 1,000 MG Q8H 09/27 1900 AC 09/29 IV 0231 Enoxaparin Sodium 40 MG DAILY / 1000 AC 09/29 SC 0903 Insulin Human Regular 6 UNITS .STK-MED ONE 09/28 2139 DC IV 09/28 2140 Insulin Human Regular 4 UNITS .STK-MED ONE 09/28 1755 DC IV 09/28 1756 Insulin Human Regular 0 Q4 /08 1400 AC 09/29 SC 0928 Levetiracetam 1,000 MG Q12 09/26 2200 AC 09/29 N/A 1 UNIT IV 0903 Pantoprazole Sodium 40 MG BID 09/20 1000 AC 09/29 IV 0903 Vancomycin HCl 1,000 MG DAILY@1900 09/27 1900 DC 09/27 Sodium Chloride 250 ML IV 1900 Zinc Oxide 1 GUY BID 09/24 2200 AC 09/29 TOP 0904 Impression/Plan Impression/Problem List Impression: Ms Bowen is a 41 year old female with past medical history of diabetes, hypertension, gastroparesis and depression who was BIBA after she was found unresponsive and covered in her vomitus at home on 09/19/2016. She was admitted in ICU for closer monitoring. #Axonal brain injury status post hypoxic encephalopathy aspiration pneumonia versus medication overdose. -Limited response to Narcan on 09/20/2016. -Urine positive for opiates and benzodiazepine. Repeated urine tox consistently revealed high benzodiazepines concentration -Quantitative benzodiazepines level was ordered, pending -No reports for seizure over the last 48 hours and no Ativan was given -Neurology consultation was obtained, thanks for recommendation. CT head without contrast and EEG were repeated based on new recommendation, CT head didn 't show any changes, EEG revealed diffuse cerebral dysfunction(worsen). CT head without contrast 09/26 IMPRESSION: 1. No acute intracranial hemorrhage. 2. Again noted is decreased nolf-mqqca-sqsnp matter differentiation of the cerebral hemispheres. Also, there is decreased attenuation of basal ganglia as may be seen in hypoxic-ischemic brain injury. CT head without contrast on admission 09/19 IMPRESSION: Diffuse loss of pablo-white matter differentiation and diffuse sulcal effacement within the bilateral cerebral hemispheres, concerning for global anoxic brain injury. No acute intracranial hemorrhage, mass or mass effect or abnormal extra- axial fluid collections. -EEG 09/21/16 Abnormal EEG due to diffuse background slowing suggestive of cerebral dysfunction with suggestive structural abnormality within the left frontotemporal region. No suggestion of subclinical seizures. -IV Protonix and daily oral care. -EEG 09/28/16 Abnormal EEG due to generalized slowing of the background rhythm consistent with diffuse cerebral dysfunction. No focal or epileptiform features were noted. #Brief seizure -Continue Keppra to 1000 mg IV twice a day -Continue electrolyte replacement #Acute hypoxic respiratory failure secondary anoxic brain injury. -Continue intubation. Repeat chest x-ray in a.m. while intubated. -Off IV fluid -Continue tube feed, rate to 65 -Last ABG 09/24/16: 7.53/26/113/21 -We'll repeat ABG today #Aspiration pneumonia -Patient was initially treated for aspiration pneumonia with Unasyn, was discontinued on 09/25 -Blood culture negative, respiratory culture positive for mixed marisol, urine culture positive for staph coagulase negative mostly colonization -Patient spiked fever on Wednesday 09/27 and was started on vancomycin and ceftaz, hyperthermia could be related to brainstem dysfunction -We'll discontinue vancomycin and continue on ceftaz Day#3 -Sputum culture grew gram-negative rods, waiting for sensitivity -Lower extremity Doppler scan rule out DVT -Abdominal ultrasound didn't reveal any acute abnormality #History of diabetes. -NovoLog sliding scale, avoid strict glucose control -Tube feedings, nutrition consultation was obtained #Hypertension -Target blood pressure systolic less than 160 #Transaminitis -Elevated liver function test since 09/25 AST 52<57<71<55<57 ALT 95<98<101<78<61 #DVT prophylaxis -ALPS, Lovenox #Diet -Tube feeding #Code full Problem List: 1. Respiratory failure 2. Aspiration pneumonia 3. Anoxic brain injury Pain Ratin Tomorrow's Labs & Rationales: CBC, ICU bundle, CXR Plan DVT/Prophylaxis: mechanical
[2016-09-29 08:00] VITALS: BP 170/90
--- NOTE | 2016-09-29 08:21 | NUR ---
0800: RECEIVED PATIENT IN BED. UNRESPONSIVE, SPONTANEOUS EYE OPENING WITH SLUGGISH PUPILS. NO SEDATION, NO MOVEMENT OF EXTREMITIES. SINUS TACH ON MONITOR 100-120'S. RECTAL TEMP 100.6 TEMPORAL ARTERY TEMP 99.0. MANUAL B/P 170/90, AUTO CUFF 124/68. INTUBATED #7 TAPED TO THE LEFT AT 22CM, VENT SETTINGS AC-14 450/25% PEEP 5. LUNGS CLEAR. LARGE AMOUNTS OF ORAL SECRETIONS, ORAL CARE PROVIDED. BITE BLOCK IN PLACE. OGT TAPED 55CM WITH TUBE FEED GLUCERNA 1.2 JARROD @ 65ML/HR GOAL RATE WITH Q4 125ML WATER FLUSHES. 10 ML RESIDUAL. +BS, PATIENT DOES HAVE HX GASTROPARESIS. BM ON COMMUNITY OUTREACH MANAGER. CRAMER IN PLACE DRAINING ADEQUATE AMOUNTS OF YELLOW URINE. LEFT BUTTOCK POPPED BLISTER WITH DUODERM IN PLACE. TRACE BILATERAL HAND EDEMA. #20 LF IV FLUSHING WELL. ON IV ABX AND KEPPRA. WILL MONITOR.
--- NOTE | 2016-09-29 11:28 | NUR ---
5MG IV LOPRESSOR GIVEN FOR HEART RATE OF 120. AFTER LOPRESSOR HEART RATE DOWN TO 100-105. B/P PRE LOPRESSOR 158/80, POST LOPRESSOR 107/68
[2016-09-29 12:00] VITALS: BP 140/80
--- NOTE | 2016-09-29 14:46 | NUR ---
RECTAL TEMP READING 100.9, IV TYLENOL GIVEN, ICE PACKS PLACED.
[2016-09-29 16:00] VITALS: BP 150/80
--- NOTE | 2016-09-29 16:06 | NUR ---
RECTAL PROBE TEMP READING 101.3, COOLING BLANKET PLACED. HOUSE STAFF AWARE
--- NOTE | 2016-09-29 18:28 | NUR ---
RECTAL PROBE TEMP DOWN TO 99.6 ON COOLING BLANKET. CONTINUING TO MONITOR.
[2016-09-29 20:00] VITALS: BP 160/98
[2016-09-30] VITALS: BP 170/90
--- NOTE | 2016-09-30 00:20 | NUR ---
0000 UNRESPONSIVE PATIENT RECEIVED, PUPILS 4MM, EQUAL AND REACT SLUGGISHLY TO LIGHT, NO TRACKING WITH GAZE NOTED, NO MOVEMENT OF LIMBS NOTED, SKIN PINK, WARM AND MOIST, COOLING BLANKET IN USE- TEMPERATURE 99.6 VIA RECTAL PROBE, MARKETING STRATEGY LEAD SINUS TACHYCARDIA WITH HEART RATE 110'S/MIN, NO ECTOPY NOTED, ETT TO VENTILATOR WITH FIO2 AT 25%- CONTINUOUS O2 SAT 98%, BREATHE SOUNDS UPPER FIELD RHONCHORUS, LOWER CHAVEZ CLEAR, ABDOMEN SOFT, +BS, OGT IN PLACE WITH TF INFUSING ORDERED- GASTRIC RESIDUAL CHECK 45 ML, HOB ELEVATED, CRAMER TO GRAVITY DRAINAGE WITH CLEAR YELLOW UO NOTED
[2016-09-30 05:09] LABS: ABSOLUTE BASOPHIL COUNT 0 /CUMM (0.0-0.2); ABSOLUTE EOSINOPHIL COUNT 0.1 /CUMM (0.0-0.7); ABSOLUTE GRANULOCYTE CT 13.2 /CUMM (1.4-6.5); ABSOLUTE LYMPH COUNT 2.8 /CUMM (1.2-3.4); ABSOLUTE MONOCYTE COUNT 0.8 /CUMM (0.10-0.60); BASOPHIL % 0.2 % (0.0-2.0); EOSINOPHIL % 0.7 % (0-5); GRANULOCYTE % 77.8 % (42.2-75.2); HEMATOCRIT 37.7 % (37-47); MEAN CORPUSCULAR HGB 26.9 PG (27.0-31.0); MEAN CORPUSCULAR HGB CONC 32.8 G/DL (33.0-37.0); MEAN PLATELET VOLUME 10.3 FL (7.4-10.4); PLATELET COUNT 432 /CUMM (130-400); RBC DISTRIBUTION WIDTH 16.5 % (11.5-14.5); WHITE BLOOD CELL COUNT 16.9 /CUMM (4.8-10.8)
--- NOTE | 2016-09-30 05:48 | NUR ---
NO CHANGES IN STATUS NOTED OVERNIGHT, NO SEIZURE ACTIVITY NOTED ALTHOUGH DECEREBRATE POSTURING NOTED WITH STIMULI OF MOVING AND TURNING, TEMPERATURE REMAINS 99+ OVERNIGHT, CONTINUES TO TOLERATE TF WELL, AWAITING AM MD ROUNDS
--- NOTE | 2016-09-30 06:52 | RADIOLOGY REPORT ---
EXAMINATION: CHEST 1 VIEW CLINICAL INFORMATION: Intubated. COMPARISON: September 29, 2016. TECHNIQUE: An AP view of the chest is provided. FINDINGS: The cardiac silhouette is not enlarged. The tip of the tracheostomy tube is approximately 5 cm above the maureen. An enteric tube is in unchanged position. The mediastinal and hilar contours are unremarkable. There are neither pleural effusions nor pneumothoraces. There are no consolidations. The osseous structures are unremarkable. IMPRESSION: Endotracheal tube and enteric tube in place. No consolidations.
--- NOTE | 2016-09-30 07:12 | PN- Resident CRCU ---
Subjective HPI/CRCU Issues: Follow up: -Anoxic brain injury with possible pain stem dysfunction (hyperthermia) -Acute hypoxic respiratory failure related to severe anoxic brain injury -Diabetes mellitus, hypertension -Chronic low back pain on narcotics Patient was seen and examined this morning, remains intubated in vegetative state. No overnight events reported by the nurse except for high blood pressure for which she received 1 dose of metoprolol 5 mg. 24 Hour Events: Temperature 99.3, MAXIMUM TEMPERATURE 100.9 Pulse lowest 103, highest 120 Blood pressure lowest 124/68, highest 181/72 Mechanical ventilator A/C mode, rate 14, peak flow 50, tidal volume 450, PEEP 5, FiO2 25%, saturation 99% Intake 2679, output 2425 Objective Vital Signs & I&O Last 8 Hrs of Vitals and I&O: 11 Exam General Appearance: intubated Head: atraumatic, normal appearance Ears, Nose, Throat: normal pharynx, normal ENT inspection Neck: normal inspection, supple, full range of motion Respiratory: chest non-tender Cardiovascular: regular rate/rhythm Gastrointestinal: normal bowel sounds, soft, non-tender Extremities: normal inspection, normal capillary refill, normal range of motion, no edema Cranial Nerves: Sluggish PERRL Skin: intact, normal color, warm/dry Current Medications: Current Medications Sig/Yaniv Start time Last Medication Dose Route Stop Time Status Admin Acetaminophen 1,000 MG Q8P PRN 09/27 1845 AC 09/29 N/A 1 UNIT IV 1434 Albuterol Sulfate 3 ML BID 09/20 2200 AC 09/30 INH 1038 Ceftazidime 1,000 MG Q8H 09/27 1900 DC 09/29 IV 1759 Ceftriaxone Sodium 1,000 MG DAILY 09/30 1000 AC 09/30 IV 1047 Enoxaparin Sodium 40 MG DAILY 09/21 1000 AC 09/30 SC 1041 Insulin Human Regular 6 UNITS .STK-MED ONE 09/29 2136 DC IV 09/29 2137 Insulin Human Regular 6 UNITS .STK-MED ONE 09/29 1756 DC IV 09/29 1757 Insulin Human Regular 6 UNITS .STK-MED ONE 09/29 1434 DC IV 09/29 1435 Insulin Human Regular 0 Q4 08 1400 AC 09/30 SC 1011 Levetiracetam 1,000 MG Q12 09/26 2200 AC 09/30 N/A 1 UNIT IV 1042 Lisinopril 20 MG DAILY 09/30 1000 AC 09/30 PO 1049 Pantoprazole Sodium 40 MG BID 09/20 1000 AC 09/30 IV 1045 Zinc Oxide 1 GUY BID 09/24 2200 09/30 TOP 1047 Impression/Plan Impression/Problem List Impression: Ms Bowen is a 41 year old female with past medical history of diabetes, hypertension, gastroparesis and depression who was BIBA after she was found unresponsive and covered in her vomitus at home on 09/19/2016. She was admitted in ICU for closer monitoring. #Axonal brain injury status post hypoxic encephalopathy aspiration pneumonia versus medication overdose. -Limited response to Narcan on 09/20/2016. -Urine positive for opiates and benzodiazepine. Repeated urine tox consistently revealed high benzodiazepines concentration -Quantitative benzodiazepines level was ordered, pending -No reports for seizure over the last 7 days and no Ativan was given -Neurology consultation was obtained, thanks for recommendation. CT head without contrast and EEG were repeated based on new recommendation, CT head didn 't show any changes, EEG revealed diffuse cerebral dysfunction(worsen). CT head without contrast 09/26 IMPRESSION: 1. No acute intracranial hemorrhage. 2. Again noted is decreased sofv-bgiqm-cxhsi matter differentiation of the cerebral hemispheres. Also, there is decreased attenuation of basal ganglia as may be seen in hypoxic-ischemic brain injury. CT head without contrast on admission 09/19 IMPRESSION: Diffuse loss of pablo-white matter differentiation and diffuse sulcal effacement within the bilateral cerebral hemispheres, concerning for global anoxic brain injury. No acute intracranial hemorrhage, mass or mass effect or abnormal extra- axial fluid collections. -EEG 09/21/16 Abnormal EEG due to diffuse background slowing suggestive of cerebral dysfunction with suggestive structural abnormality within the left frontotemporal region. No suggestion of subclinical seizures. -IV Protonix and daily oral care. -EEG 09/28/16 Abnormal EEG due to generalized slowing of the background rhythm consistent with diffuse cerebral dysfunction. No focal or epileptiform features were noted. #Brief seizure -Continue Keppra to 1000 mg IV twice a day -Continue electrolyte replacement #Acute hypoxic respiratory failure secondary anoxic brain injury. -Continue intubation. Repeat chest x-ray in a.m. while intubated. -Off IV fluid -Continue tube feed, rate to 65 -Last ABG 09/29/16: 7.47/36/88/26 #Aspiration pneumonia -Patient was initially treated for aspiration pneumonia with Unasyn, was discontinued on 09/25 -Blood culture negative, respiratory culture positive for mixed marisol, urine culture positive for staph coagulase negative mostly colonization -Patient spiked fever on Wednesday 09/27 and was started on vancomycin and ceftaz, switched to ceftriaxone -Continue ceftriaxone 1000 mg daily Day#4 -hyperthermia could be related to brainstem dysfunction -Sputum culture grew Escherichia coli -Lower extremity Doppler scan rule out DVT -Abdominal ultrasound didn't reveal any acute abnormality #History of diabetes. -NovoLog sliding scale, avoid strict glucose control -Tube feedings, nutrition consultation was obtained #Hypertension -Target blood pressure systolic less than 160 #Transaminitis -Elevated liver function test since 09/25 AST 47<52<57<71<55<57 ALT 71<95<98<101<78<61 #DVT prophylaxis -ALPS, Lovenox #Diet -Tube feeding #Code full Problem List: 1. Respiratory failure 2. Aspiration pneumonia 3. Anoxic brain injury Pain Ratin Tomorrow's Labs & Rationales: ICU bundle, CBC, Urine tox Plan DVT/Prophylaxis: mechanical
[2016-09-30 08:00] VITALS: BP 164/78
--- NOTE | 2016-09-30 09:39 | PN- CRCU ---
Subjective HPI/Critical Care Issues: Still has vasodynamic and temp instability Still has high temp Minimal secretions No sig recovery neuro hernandez Benzo still high Objective Current Medications: Current Medications Sig/Yaniv Start time Last Medication Dose Route Stop Time Status Admin Acetaminophen 1,000 MG Q8P PRN 09/27 1845 09/29 N/A 1 UNIT IV 1434 Albuterol Sulfate 3 ML BID 09/20 2200 AC 09/29 INH 1607 Ceftazidime 1,000 MG Q8H 09/27 1900 DC 09/29 IV 1759 Ceftriaxone Sodium 1,000 MG DAILY 09/30 1000 AC IV Enoxaparin Sodium 40 MG DAILY 09/21 1000 09/29 SC 0903 Insulin Human Regular 6 UNITS .STK-MED ONE 09/29 2136 DC IV 09/29 2137 Insulin Human Regular 6 UNITS .STK-MED ONE 09/29 1756 DC IV 09/29 1757 Insulin Human Regular 6 UNITS .STK-MED ONE 09/29 1434 DC IV 09/29 1435 Insulin Human Regular 4 UNITS .STK-MED ONE 09/29 0928 DC IV 09/29 0929 Insulin Human Regular 0 Q4 09/21 1400 09/30 SC 0604 Levetiracetam 1,000 MG Q12 09/26 2200 09/29 N/A 1 UNIT IV 2129 Lisinopril 20 MG DAILY 09/30 1000 AC PO Metoprolol Tartrate 5 MG ONCE ONE 09/29 1100 DC 09/29 IV 09/29 1101 1108 Pantoprazole Sodium 40 MG BID 09/20 1000 09/29 IV 2129 Zinc Oxide 1 GUY BID 09/24 2200 09/29 TOP 2129 Vital Signs & I&O Last 24 Hrs of Vitals and I&O: Vital Signs Date Time Temp Pulse Resp B/P B/P Pulse O2 O2 Flow FiO2 Mean Ox Delivery Rate 09/30 0800 99.8 116 14 164/78 98 Ventilator 25% 09/30 0756 24 09/30 0535 25 09/30 0400 98 Ventilator 25% 09/30 0342 35 09/30 0038 25 09/30 0000 98 Ventilator 25% 09/30 0000 99.7 112 16 170/90 98 Ventilator 25% 09/29 2202 25 09/29 2000 100 Ventilator 25% 09/30 1999 98.9 110 16 160/98 100 Ventilator 25% 09/29 1858 25 09/29 1623 25 09/29 1600 97 Ventilator 25% 09/29 1600 101.3 113 14 150/80 97 Ventilator 25% 09/29 1519 101.0 09/29 1434 100.9 09/29 1401 25 09/29 1200 100 Ventilator 25% 09/29 1200 100.5 103 17 140/80 100 Ventilator 25% 09/29 1128 25 09/29 1108 120 158/80 Intake & Output 09/30 1600 09/30 0800 09/30 0000 Intake Total 752 972 Output Total 775 1200 Balance -23 -228 Intake, IV 190 Intake, Tube 502 407 Feeding Intake, Tube 250 375 Irrigant Number 0 0 Bowel Movements Output, Urine 775 1200 Laboratory Tests 09/30 09/30 0500 0420 Chemistry Sodium (137 - 145 mmol/L) 138 Potassium (3.5 - 5.1 mmol/L) 4.7 Chloride (98 - 107 mmol/L) 98 Carbon Dioxide (22 - 30 mmol/L) 23 Anion Gap (5 - 16) 17 H BUN (7 - 17 mg/dL) 13 Creatinine (0.5 - 1.0 mg/dL) 0.4 L Estimated GFR (>60 ml/min) > 60 Glucose (65 - 99 mg/dL) 281 H Calcium (8.4 - 10.2 mg/dL) 9.3 Phosphorus (2.5 - 4.5 mg/dL) 6.6 H Magnesium (1.6 - 2.3 mg/dL) 2.2 Total Bilirubin (0.2 - 1.3 mg/dL) 0.5 AST (14 - 36 U/L) 47 H ALT (9 - 52 U/L) 71 H Albumin (3.5 - 5.0 g/dL) 3.8 Hematology CBC w Diff NO MAN DIFF REQ WBC (4.8 - 10.8 /CUMM) 16.9 H RBC (4.20 - 5.40 /CUMM) 4.60 Hgb (12.0 - 16.0 G/DL) 12.4 Hct (37 - 47 %) 37.7 MCV (81.0 - 99.0 FL) 82.0 MCH (27.0 - 31.0 PG) 26.9 L RDW (11.5 - 14.5 %) 16.5 H Plt Count (130 - 400 /CUMM) 432 H MPV (7.4 - 10.4 FL) 10.3 Gran % (42.2 - 75.2 %) 77.8 H Lymphocytes % (20.5 - 51.1 %) 16.8 L Monocytes % (1.7 - 9.3 %) 4.5 Eosinophils % (0 - 5 %) 0.7 Basophils % (0.0 - 2.0 %) 0.2 Absolute Granulocytes (1.4 - 6.5 /CUMM) 13.2 H Absolute Lymphocytes (1.2 - 3.4 /CUMM) 2.8 Absolute Monocytes (0.10 - 0.60 /CUMM) 0.8 H Absolute Eosinophils (0.0 - 0.7 /CUMM) 0.1 Absolute Basophils (0.0 - 0.2 /CUMM) 0 PUBS MCHC (33.0 - 37.0 G/DL) 32.8 L Toxicology Urine Opiates Screen (>2000 NG/ML) < 100.00 Methadone Screen (>300 NG/ML) < 40 Barbiturate Screen (>200 NG/ML) < 60 Ur Phencyclidine Scrn (>25 NG/ML) < 6.00 Amphetamines Screen (>1000 NG/ML) < 100 U Benzodiazepines Scrn (>200 NG/ML) > 800 H Urine Cocaine Screen (>300 NG/ML) < 50 Urine Cannabis Screen (>50 NG/ML) < 5.00 09/29 09/29 0940 0405 Blood Gas pH (7.35 - 7.45 PH) 7.47 H pCO2 (35 - 45 TORR) 36 pO2 (80 - 100 TORR) 88 HCO3 (21 - 28 MEQ/L) 26 ABG O2 Sat (Measured) (>96.0 %) 97.0 P-50 (Temp Corrected) Y Carboxyhemoglobin (1.5 - 5.0 %) 0.2 L O2 Concentration % 25% Temperature (97.0 - 100.0 FARH) 100.6 H Respiration Rate (BPM) 14 O2 Delivery Method VENT Vent Mode AC Expiratory Pressure (CMH2O/P) 5 Tidal Volume (CC) 550 Pressure Support (CMH2O/P) 0 Chemistry Sodium (137 - 145 mmol/L) 138 Potassium (3.5 - 5.1 mmol/L) 4.7 Chloride (98 - 107 mmol/L) 99 Carbon Dioxide (22 - 30 mmol/L) 23 Anion Gap (5 - 16) 16 BUN (7 - 17 mg/dL) 13 Creatinine (0.5 - 1.0 mg/dL) 0.5 Estimated GFR (>60 ml/min) > 60 Glucose (65 - 99 mg/dL) 236 H Calcium (8.4 - 10.2 mg/dL) 9.4 Phosphorus (2.5 - 4.5 mg/dL) 7.0 H Magnesium (1.6 - 2.3 mg/dL) 2.3 Total Bilirubin (0.2 - 1.3 mg/dL) 0.5 AST (14 - 36 U/L) 52 H ALT (9 - 52 U/L) 95 H Albumin (3.5 - 5.0 g/dL) 3.7 Hematology CBC w Diff NO MAN DIFF REQ WBC (4.8 - 10.8 /CUMM) 15.6 H RBC (4.20 - 5.40 /CUMM) 4.57 Hgb (12.0 - 16.0 G/DL) 12.3 Hct (37 - 47 %) 37.9 MCV (81.0 - 99.0 FL) 83.0 MCH (27.0 - 31.0 PG) 27.0 RDW (11.5 - 14.5 %) 17.1 H Plt Count (130 - 400 /CUMM) 365 MPV (7.4 - 10.4 FL) 10.4 Gran % (42.2 - 75.2 %) 76.8 H Lymphocytes % (20.5 - 51.1 %) 15.8 L Monocytes % (1.7 - 9.3 %) 5.2 Eosinophils % (0 - 5 %) 1.7 Basophils % (0.0 - 2.0 %) 0.5 Absolute Granulocytes (1.4 - 6.5 /CUMM) 11.9 H Absolute Lymphocytes (1.2 - 3.4 /CUMM) 2.5 Absolute Monocytes (0.10 - 0.60 /CUMM) 0.8 H Absolute Eosinophils (0.0 - 0.7 /CUMM) 0.3 Absolute Basophils (0.0 - 0.2 /CUMM) 0.1 PUBS MCHC (33.0 - 37.0 G/DL) 32.6 L Miscellaneous Phlebotomy Draw Site RIGHT RADIAL Toxicology Urine Opiates Screen (>2000 NG/ML) < 100.00 Methadone Screen (>300 NG/ML) < 40 Barbiturate Screen (>200 NG/ML) < 60 Ur Phencyclidine Scrn (>25 NG/ML) < 6.00 Amphetamines Screen (>1000 NG/ML) < 100 U Benzodiazepines Scrn (>200 NG/ML) > 800 H Urine Cocaine Screen (>300 NG/ML) < 50 Urine Cannabis Screen (>50 NG/ML) < 5.00 Microbiology Date/Time Procedure - Status Source Growth 09/27 165 Respiratory Culture - COMP LOWER RESP ESCHERICHIA COLI 09/27 165 Gram Stain - COMP LOWER RESP 09/27 1630 Urine Culture - COMP URINE ROUT 09/27 1545 Blood Culture - RES BLOOD 09/27 1545 Blood Culture - RES BLOOD Impression/Plan Impression/Plan Impression/Plan: General Appearance: intubated Head: atraumatic, normal appearance Neck: normal inspection Respiratory: lungs clear Cardiovascular: regular rate/rhythm Gastrointestinal: normal bowel sounds, soft, non-tender Extremities: normal inspection, normal capillary refill, no edema Cranial Nerves: dilated pupil, gag present has at times decorticate posture Skin: intact, normal color, warm/dry Urine tox noted still has benzo onboard Cxr nil acute IMPRESSION This is a lady with multiple medical problems including diabetes, complications from diabetes including gastroparesis per history, but pressure history, chronic low back pain, migraine, urinary incontinence, GERD, narcotic use and benzodiazepine use followed by pain Center per the history noted in the house staff's note now comes in with * Anoxic brain injury - Significant decreased mental status with comatose condition with profound hypoglycemia now with significant anoxic brain injury as noted in the CAT scan and physical exam. Patient did not really respond to Narcan. Differential diagnoses include hypoglycemia from her diabetes medication versus benzodiazepine overdose versus narcotic overdose intentionally on a nonintentional is unknown at this time. Vomiting with aspiration pneumonia leading to hypoxic brain injury as well as a possibility * Respiratory failure related to severe anoxic brain injury * High fever related to brain stem issues prob * Sig vasomotor instablity prob due to brain stem issues * Significant vomiting upon admission or prior to admission with aspiration pneumonitis now with ecoli * History of diabetes, hypertension, significant hypokalemia, gastroparesis * Previous history of low back pain and depression * 14 mm bony lesion and T5 vertebral body which needs to be followed in the future * History of sig narcotic use * Significant history of gastroparesis now with the coffee ground REC Continue mechanical ventilator Please order quantitative benzo level today Check fingerstick Watch for any seizure Keep the head of bed elevated, periodex oral care and ppi daily Aggressive oral suctioning Prog poor Check urine tox again in am DVT prophylaxis Pt still critically ill
[2016-09-30 12:00] VITALS: BP 130/80
--- NOTE | 2016-09-30 12:31 | NUR ---
1200: RECEIVED PATIENT IN BED, UNRESPONSIVE, EYES OPEN, NO TRACKING NOTED, PUPILS EQUAL, REACTIVE, SLUGGISH. +CMS. +BABINSKI. ETT PLACED IN CENTER WITH BITE BLOCK, LARGE AMOUNTS OF ORAL SECRETIONS. UPPER LOBES RHONCHI, LOWER LOBES DIMINISHED, VENT SETTINGS AC-14 450/25% PEEP 5. MOUTH CARE PROVIDED. OGT AT 55CM WITH TUBE FEED RUNNING, SEE FLOW SHEET. ABDOMEN SOFT, +BS, SMALL AMOUNT OF INCONTINENT STOOL, KENDRICK CARE PROVIDED. CRAMER IN PLACE DRAINING TEA COLORED URINE, RECTAL PROBE IN PLACE, RECTAL TEMP 100.9, COOLING BLANKET UNDER PATIENT NOT ON AT THIS TIME. DUODERM TO LEFT BUTTOCK POPPED BLISTER, NEW RASH NOTED TO BILATERAL CHEEK/NECK AREA FROM SALIVA AND TAPE FROM VENT. ALPS IN PLACE. TURNED AND REPOSITIONED. WILL MONITOR.
--- NOTE | 2016-09-30 12:44 | NUR ---
HEART RATE TACHY 125, RECTAL PROBE TEMP 101. COOLING BLANKET TURNED BACK ON. WILL MONITOR.
[2016-09-30 16:00] VITALS: BP 140/84
[2016-09-30 20:00] VITALS: BP 172/90
[2016-10-01] VITALS: BP 148/73
--- NOTE | 2016-10-01 01:13 | NUR ---
0000 UNRESPONSIVE PATIENT RECEIVED, PUPILS EQUAL AT 4MM, REACT SLUGGISHLY TO LIGHT, DECEREBRATE POSTURING OF BUE WITH STIMULI OF CARE NOTED BUT NOT PROMINENT ON 09/30, SKIN PINK, WARM AND DRY, TEMPERATURE LOW GRADE 99+ TO 100.3 RECTALLY, STITCHER UTILITY SINUS TACYCARDIA WITHOUT ECTOPY, HEART RATE 110'S TO 120/MIN, ETT TO VENTIALTOR WITH FIO2 AT 25%- CONTINUOUS O2 SAT 98 TO 99%, BREATHE SOUNDS CLEAR BILATERALLY, ABDOMEN SOFT, +BS, HOB ELEVATED- TOLERATING TF WELL VIA OGT, CRAMER TO GRAVITY DRAINAGE WITH CLEAR MARCUS COLORED UO- ACCUCHECK 255- PATIENT HAD RECEIVED NOVOLIN DOSE AND LEVEMIR AT 2200- [address] ABRAHAM
[2016-10-01 05:03] LABS: ABSOLUTE BASOPHIL COUNT 0 /CUMM (0.0-0.2); ABSOLUTE EOSINOPHIL COUNT 0.4 /CUMM (0.0-0.7); ABSOLUTE LYMPH COUNT 2.7 /CUMM (1.2-3.4); ABSOLUTE MONOCYTE COUNT 0.8 /CUMM (0.10-0.60); BASOPHIL % 0.2 % (0.0-2.0); GRANULOCYTE % 79.1 % (42.2-75.2); HEMATOCRIT 38.1 % (37-47); MEAN CORPUSCULAR HGB 27.2 PG (27.0-31.0); MEAN CORPUSCULAR HGB CONC 33.1 G/DL (33.0-37.0); MEAN CORPUSCULAR VOLUME 82.1 FL (81.0-99.0); MEAN PLATELET VOLUME 11.3 FL (7.4-10.4); PLATELET COUNT 447 /CUMM (130-400); RBC DISTRIBUTION WIDTH 16.6 % (11.5-14.5); RED BLOOD CELL CT 4.64 /CUMM (4.20-5.40)
--- NOTE | 2016-10-01 06:44 | RADIOLOGY REPORT ---
EXAMINATION: CHEST 1 VIEW CLINICAL INFORMATION: Intubated. COMPARISON: September 30, 2016. TECHNIQUE: An AP view of the chest is provided. FINDINGS: The cardiac silhouette is not enlarged. An endotracheal tube is in place. The tip is approximately 6 cm above the maureen. An enteric tube is in place. The tip overlies the left upper quadrant, likely within the stomach. The mediastinal and hilar contours are unremarkable. There are neither pleural effusions nor pneumothoraces. There are no consolidations. The osseous structures are unremarkable. IMPRESSION: Endotracheal tube and enteric tube in place. No evidence for acute disease.
--- NOTE | 2016-10-01 07:19 | PN- Resident CRCU ---
Subjective HPI/CRCU Issues: Follow up: -Anoxic brain injury with possible pain stem dysfunction (hyperthermia) -Acute hypoxic respiratory failure related to severe anoxic brain injury -Diabetes mellitus, hypertension -Chronic low back pain on narcotics Patient was seen and examined this morning, intubated, positive sucking reflex, gag reflex. No overnight events reported by the nurse. Portable chest x-ray was obtained today for endotracheal tube position which showed to be 6 cm above the maureen. Levemir 10 units twice a day and NovoLog sliding scale every 6 hours was started yesterday, blood sugar this morning 300 24 Hour Events: Temperature 100.8, MAXIMUM TEMPERATURE 101.2 Pulse lowest 106, highest 123 sinus rhythm Blood pressure lowest 118/72, highest 170/80 A/C mode rate 14, tidal volume 450, PEEP 5, peak flow 50, FiO2 25% Intake 2653, output 1635 Objective Vital Signs & I&O Last 8 Hrs of Vitals and I&O: 11 Exam General Appearance: intubated Head: atraumatic, normal appearance Ears, Nose, Throat: normal pharynx, normal ENT inspection Neck: normal inspection, supple, full range of motion Respiratory: chest non-tender Cardiovascular: regular rate/rhythm Gastrointestinal: normal bowel sounds, soft, non-tender Extremities: normal inspection, normal capillary refill, normal range of motion, no edema Cranial Nerves: sluggish PERRL Current Medications: Current Medications Sig/Yaniv Start time Last Medication Dose Route Stop Time Status Admin Acetaminophen 1,000 MG Q8P PRN 09/27 1845 AC 10/01 N/A 1 UNIT IV 0603 Albuterol Sulfate 3 ML BID 09/20 2200 AC 10/01 INH 0830 Ceftriaxone Sodium 1,000 MG DAILY 09/30 1000 AC 10/01 IV 1019 Enoxaparin Sodium 40 MG DAILY 09/21 1000 AC 10/01 SC 1020 Insulin Detemir 10 UNITS BID 09/30 2200 AC 10/01 SC 1019 Insulin Human Regular 0 Q4H 10/01 1600 AC SC Insulin Human Regular 0 Q6 09/30 2359 DC 10/01 SC 1204 Insulin Human Regular 0 Q4 09/21 1400 DC 09/30 SC 1806 Levetiracetam 1,000 MG Q12 09/26 2200 AC 10/01 N/A 1 UNIT IV 1019 Lisinopril 20 MG DAILY 09/30 1000 AC 10/01 PO 1020 Pantoprazole Sodium 40 MG BID 09/20 1000 AC 10/01 IV 1019 Zinc Oxide 1 GUY BID 09/24 2200 AC 10/01 TOP 1020 Impression/Plan Impression/Problem List Impression: Ms Bowen is a 41 year old female with past medical history of diabetes, hypertension, gastroparesis and depression who was BIBA after she was found unresponsive and covered in her vomitus at home on 09/19/2016. She was admitted in ICU for closer monitoring. #Axonal brain injury status post hypoxic encephalopathy aspiration pneumonia versus medication overdose. -Limited response to Narcan on 09/20/2016. -Urine positive for opiates and benzodiazepine. Repeated urine tox consistently revealed high benzodiazepines concentration -Quantitative benzodiazepines level Oxazepam 1053 Nordiazepam 242 Lorazepam none Temaepam 1051 Alprazolam not detected Triazolam not detected -Consider Flumazenil -No reports for seizure over the last 7 days and no Ativan was given -Neurology consultation was obtained, thanks for recommendation. CT head without contrast and EEG were repeated based on new recommendation, CT head didn 't show any changes, EEG revealed diffuse cerebral dysfunction(worsen). CT head without contrast 09/26 IMPRESSION: 1. No acute intracranial hemorrhage. 2. Again noted is decreased wvsc-jogkk-bbzgn matter differentiation of the cerebral hemispheres. Also, there is decreased attenuation of basal ganglia as may be seen in hypoxic-ischemic brain injury. CT head without contrast on admission 09/19 IMPRESSION: Diffuse loss of pablo-white matter differentiation and diffuse sulcal effacement within the bilateral cerebral hemispheres, concerning for global anoxic brain injury. No acute intracranial hemorrhage, mass or mass effect or abnormal extra- axial fluid collections. -EEG 09/21/16 Abnormal EEG due to diffuse background slowing suggestive of cerebral dysfunction with suggestive structural abnormality within the left frontotemporal region. No suggestion of subclinical seizures. -IV Protonix and daily oral care. -EEG 09/28/16 Abnormal EEG due to generalized slowing of the background rhythm consistent with diffuse cerebral dysfunction. No focal or epileptiform features were noted. #Brief seizure -Continue Keppra to 1000 mg IV twice a day -Continue electrolyte replacement #Acute hypoxic respiratory failure secondary anoxic brain injury. -Continue intubation. Repeat chest x-ray in a.m. while intubated. -Off IV fluid -Continue tube feed, rate to 65 -Last ABG 09/29/16: 7.47/36/88/26 #Aspiration pneumonia -Patient was initially treated for aspiration pneumonia with Unasyn, was discontinued on 09/25 -Blood culture negative, respiratory culture positive for mixed marisol, urine culture positive for staph coagulase negative mostly colonization -Patient spiked fever on Wednesday 09/27 and was started on vancomycin and ceftaz, switched to ceftriaxone -Continue ceftriaxone 1000 mg daily Day#5 -Hyperthermia could be related to brainstem dysfunction -Sputum culture grew Escherichia coli -Lower extremity Doppler scan rule out DVT -Abdominal ultrasound didn't reveal any acute abnormality #History of diabetes. -NovoLog sliding scale, avoid strict glucose control -Levemir 10 units BID for better glucose control -NSS Q4 hours -Tube feedings, nutrition consultation was obtained #Hypertension -Target blood pressure systolic less than 160 #Transaminitis -Elevated liver function test since 09/25 AST 47<47<52<57<71<55<57 ALT 65<71<95<98<101<78<61 #DVT prophylaxis -ALPS, Lovenox #Diet -Tube feeding #Code full Problem List: 1. Respiratory failure 2. Aspiration pneumonia 3. Anoxic brain injury Pain Ratin Tomorrow's Labs & Rationales: ICU bundle , CBC, Urine tox Plan DVT/Prophylaxis: mechanical
[2016-10-01 08:00] VITALS: BP 118/72
--- NOTE | 2016-10-01 09:17 | NUR ---
AT 0800 REC'D THE PT ORALLY INTUBATED AND MECHANICALLY VENTILATED PER THE MD ORDER. PT REMAINS UNRESPONSIVE TO EVEN PAINFUL STIMULI, GOES INTO A DECEREBRATE POSTURE WHEN TURNED, PUPILS ARE 3MM AND REACTIVE TO LIGHT. OPENS EYES BUT DOES NOT TRACK. NO MOVEMENT OF EXTREMITIES NOTED. PT IS IN A ST WITHOUT ECTOPY PER THE CERTIFIED MASTER SAFE TECHNICIAN. TEMP WAS 100.9 AT 0800 DESPITE RECEIVING IV TYLENOL AT 0600. PT TURNED AND CLEANED AND HYPOTHERMIA BLANKET PLACED UNDER THE PT BUT NOT TURNED ON. TEMP IS CURRENTLY DOWN TO 100.5. ANNABEL BS ARE CLEAR. O2 SAT IS 98% ON AN FIO2 OF 25%. ABD IS SOFT WITH NORMOACTIVE BOWEL SOUNDS. OGT IN PLACE AT 55C TO THE LIP WITH GLUCERNA INFUSING AT 65ML/HR WITH 125ML H20 FLUSHES Q4H. 10ML RESIDUAL NOTED. CRAMER IN PLACE DRAINING CLEAR YELLOW URINE. OUTPUT FROM 08-0900 WAS ONLY 15ML, DR JOHNNIE MCKEON NOTIFIED-WILL CONTINUE TO MONITOR. DUODERM TO L BUTTOCK WAS COMING OFF. DUODERM TO POPPED BLISTER REPLACED.
[2016-10-01 16:00] VITALS: BP 128/70
--- NOTE | 2016-10-01 16:37 | RADIOLOGY REPORT ---
EXAMINATION: XR PORTABLE CHEST CLINICAL INFORMATION: Endotracheal tube. Mechanical ventilator. COMPARISON: Multiple prior chest x-rays, most recent of which is dated 10/01/2016. TECHNIQUE: Portable semierect view of the chest was obtained. FINDINGS: Evaluation is limited at the lung apices not fully included on this exam. Endotracheal tube is seen located approximately 5.5 cm above the maureen, unchanged from the prior exam. Enteric tube is seen coursing into the left upper quadrant with tip not included. The cardiac mediastinal silhouette is enlarged, likely related to AP technique. Low lung volumes are noted without definite focal process seen. No effusion or pneumothorax is seen. Multilevel moderate degenerative spurring is seen in the thoracic spine. IMPRESSION: 1. Endotracheal tube tip 5.5 cm above the maureen. 2. Enteric tube tip not included on this exam. 3. No focal cardiopulmonary process seen.
[2016-10-01 23:00] VITALS: BP 130/70
--- NOTE | 2016-10-02 01:19 | NUR ---
UNRESPONSIVE, PUPILS SLUGGISH REACTIVE TO LIGHT 2MM, DECEREBRATE POSTURING, COUGH AND GAG REFLEX REMAIN INTACT, NOT IN PAIN. VITAL SIGNS ARE STABLE, TOLERATED VENTILATOR SETTINGS OF AC 14/450/5/25%, MINIMAL PALE YELLOWISH SECRETION VIA ETT, ORAL HAS MODERATE TO LARGE AMOUNT OF WHITISH SECRETION. ABDOMEN IS SOFT AND ROUND, ON GLUCERNA 1.2 JARROD RUNNING AT 65 ML/HR, TOLERATED AND NO RESIDUALS, BM NOTED WITH SOFT YELLOWISH STOOL, MODERATE AMOUNT. HAS GOOD URINE OUTPUT VIA CRAMER CATHETER, CLEAR YELLOW URINE OUTPUT. SKIN HAS OPEN BLISTER AT THE RIGHT SACRAL AREA COBEED WITH DOUDERM. AT 2400, MD ON DUTY INFORMED THAT SYSTOLIC BP IS OCCASIONALLY AROUND 160'S TO 180'S. NO NEW ORDER.
--- NOTE | 2016-10-02 01:33 | NUR ---
AT 2400, RT TRIES TO ADJUST THE ETT PER MD INSTRUCTION BUT THE PATIENT IS BITING THE TUBE. MD INFORMED BY THE RT.
[2016-10-02 04:30] LABS: ABSOLUTE BASOPHIL COUNT 0.1 /CUMM (0.0-0.2); ABSOLUTE EOSINOPHIL COUNT 0.2 /CUMM (0.0-0.7); ABSOLUTE GRANULOCYTE CT 17.4 /CUMM (1.4-6.5); ABSOLUTE LYMPH COUNT 2.8 /CUMM (1.2-3.4); BASOPHIL % 0.3 % (0.0-2.0); EOSINOPHIL % 0.9 % (0-5); GRANULOCYTE % 81.1 % (42.2-75.2); HEMATOCRIT 39.5 % (37-47); MEAN CORPUSCULAR HGB 27.3 PG (27.0-31.0); MEAN CORPUSCULAR VOLUME 82.8 FL (81.0-99.0); MEAN PLATELET VOLUME 10.6 FL (7.4-10.4); PLATELET COUNT 483 /CUMM (130-400); RBC DISTRIBUTION WIDTH 16.6 % (11.5-14.5); RED BLOOD CELL CT 4.77 /CUMM (4.20-5.40); WHITE BLOOD CELL COUNT 21.5 /CUMM (4.8-10.8)
--- NOTE | 2016-10-02 06:34 | RADIOLOGY REPORT ---
EXAMINATION: CHEST 1 VIEW CLINICAL INFORMATION: Intubated. COMPARISON: October 01, 2016. TECHNIQUE: An AP view of the chest is provided. FINDINGS: The cardiac silhouette is not enlarged. An endotracheal tube is in place. The tip is approximately 5 cm above the maureen. An enteric tube is in place. The tip overlies the left upper quadrant, likely within the stomach. The mediastinal and hilar contours are unremarkable. There are neither pleural effusions nor pneumothoraces. There are no consolidations. The osseous structures are unremarkable. IMPRESSION: Endotracheal tube and enteric tube in place. No evidence for acute disease.
[2016-10-02 07:00] VITALS: BP 119/67
[2016-10-02 08:00] VITALS: BP 106/70
--- NOTE | 2016-10-02 08:06 | PN- Resident CRCU ---
Subjective HPI/CRCU Issues: Follow up: -Anoxic brain injury with possible pain stem dysfunction (hyperthermia) -Acute hypoxic respiratory failure related to severe anoxic brain injury -Diabetes mellitus, hypertension -Chronic low back pain on narcotics Patient was seen and examined this morning, remained intubated, no overnight events reported by the nurse. Brainstem reflexes positive. in decorticated posture. 24 Hour Events: Temperature 98.7, MAXIMUM TEMPERATURE 100.9 Blood pressure lowest 115/74, highest 177/88 Heart rate lowest 110, highest 120 sinus rhythm Mechanical ventilator A/C, rate 14, tidal volume 450, PEEP 5, FiO2 25% saturating 98% Intake 2510, output 1195 Objective Vital Signs & I&O Last 8 Hrs of Vitals and I&O: 111 Exam General Appearance: intubated Head: atraumatic, normal appearance Ears, Nose, Throat: normal pharynx Neck: normal inspection, supple, full range of motion Respiratory: lungs clear Cardiovascular: regular rate/rhythm Gastrointestinal: normal bowel sounds, soft, non-tender Extremities: normal inspection, normal capillary refill, normal range of motion, no edema Cranial Nerves: Very sluggish pupillary light reflex Skin: normal color, warm/dry Current Medications: Current Medications Sig/Yaniv Start time Last Medication Dose Route Stop Time Status Admin Acetaminophen 1,000 MG Q8P PRN 09/27 1845 AC 10/01 N/A 1 UNIT IV 0603 Albuterol Sulfate 3 ML BID 09/20 2200 AC 10/02 INH 0852 Ceftriaxone Sodium 1,000 MG DAILY 09/30 1000 AC 10/02 IV 0944 Chlorhexidine 15 ML BID 10/02 1000 AC 10/02 Gluconate PO 0944 Enoxaparin Sodium 40 MG DAILY 09/21 1000 AC 10/02 SC 0944 Insulin Detemir 10 UNITS BID 09/30 2200 AC 10/02 SC 0943 Insulin Human Regular 0 Q4H 10/01 1600 AC 10/02 SC 0943 Levetiracetam 1,000 MG Q12 09/26 2200 AC 10/02 N/A 1 UNIT IV 0944 Lisinopril 20 MG DAILY 09/30 1000 AC 10/02 PO 0944 Pantoprazole Sodium 40 MG BID 09/20 1000 AC 10/02 IV 0944 Zinc Oxide 1 GUY BID 09/24 2200 AC 10/02 TOP 0943 Impression/Plan Impression/Problem List Impression: Ms. Bowen is a 41 year old female with past medical history of diabetes, hypertension, gastroparesis and depression who was BIBA after she was found unresponsive and covered in her vomitus at home on 09/19/2016. She was admitted in ICU for closer monitoring. #Axonal brain injury status post hypoxic encephalopathy aspiration pneumonia versus medication overdose. -Limited response to Narcan on 09/20/2016. -Urine positive for opiates and benzodiazepine. Repeated urine tox consistently revealed high benzodiazepines concentration -Quantitative benzodiazepines level Oxazepam 1053 Nordiazepam 242 Lorazepam none Temaepam 1051 Alprazolam not detected Triazolam not detected -Consider Flumazenil -No reports for seizure over the last 7 days and no Ativan was given -Neurology consultation was obtained, thanks for recommendation. CT head without contrast and EEG were repeated based on new recommendation, CT head didn 't show any changes, EEG revealed diffuse cerebral dysfunction(worsen). CT head without contrast 09/26 IMPRESSION: 1. No acute intracranial hemorrhage. 2. Again noted is decreased fvwe-fhmcz-qpouy matter differentiation of the cerebral hemispheres. Also, there is decreased attenuation of basal ganglia as may be seen in hypoxic-ischemic brain injury. CT head without contrast on admission 09/19 IMPRESSION: Diffuse loss of pablo-white matter differentiation and diffuse sulcal effacement within the bilateral cerebral hemispheres, concerning for global anoxic brain injury. No acute intracranial hemorrhage, mass or mass effect or abnormal extra- axial fluid collections. -EEG 09/21/16 Abnormal EEG due to diffuse background slowing suggestive of cerebral dysfunction with suggestive structural abnormality within the left frontotemporal region. No suggestion of subclinical seizures. -IV Protonix and daily oral care. -EEG 09/28/16 Abnormal EEG due to generalized slowing of the background rhythm consistent with diffuse cerebral dysfunction. No focal or epileptiform features were noted. #Brief seizure -Continue Keppra to 1000 mg IV twice a day -Continue electrolyte replacement #Acute hypoxic respiratory failure secondary anoxic brain injury. -Continue intubation. Repeat chest x-ray in a.m. while intubated. -Off IV fluid -Continue tube feed, rate to 65 -Last ABG 09/29/16: 7.47/36/88/26 #Aspiration pneumonia -Patient was initially treated for aspiration pneumonia with Unasyn, was discontinued on 09/25 -Blood culture negative, respiratory culture positive for mixed marisol, urine culture positive for staph coagulase negative mostly colonization -Patient spiked fever on Wednesday 09/27 and was started on vancomycin and ceftaz, switched to ceftriaxone -Continue ceftriaxone 1000 mg daily Day#6 -Hyperthermia could be related to brainstem dysfunction -Sputum culture grew Escherichia coli -Lower extremity Doppler scan rule out DVT -Abdominal ultrasound didn't reveal any acute abnormality #Leukocytosis/thrombocytosis -Leukocytosis of 21.5 with no bandemia, granuolocytosis -Platelet creeping up today is 483 -Fabrile MAXIMUM TEMPERATURE 100.9 -It could be infection (urine/skin)/dehydration although BUN is within normal -Patient has one scaral abrasion -She is on ceftriaxone that cover for UTI except if she has resistant bugs -Consider U/A, urine culture #History of diabetes. -NovoLog sliding scale, avoid strict glucose control -Levemir 10 units BID for better glucose control -NSS Q4 hours will increase SSC by 2 units -Tube feedings, nutrition consultation was obtained -Consider increase water flush #Hypertension -Target blood pressure systolic less than 160 -Patient had systolic of 75 this morning, lisinopril was held -Continue to be tachycardic 120s #Transaminitis -Elevated liver function test since 09/25 AST 52<47<47<52<57<71<55<57 ALT 57<65<71<95<98<101<78<61 #DVT prophylaxis -ALPS, Lovenox #Diet -Tube feeding #Code full Problem List: 1. Respiratory failure 2. Aspiration pneumonia 3. Anoxic brain injury Pain Ratin Tomorrow's Labs & Rationales: ICU bundle, CBC, Urine tox Plan DVT/Prophylaxis: mechanical
--- NOTE | 2016-10-02 13:24 | PN- CRCU ---
Subjective HPI/Critical Care Issues: Patient was seen and examined this morning, remained intubated, no overnight events reported by the nurse. Brainstem reflexes positive. in decorticated posture. 24 Hour Events: Temperature 98.7, MAXIMUM TEMPERATURE 100.9 Blood pressure lowest 115/74, highest 177/88 Heart rate lowest 110, highest 120 sinus rhythm Mechanical ventilator A/C, rate 14, tidal volume 450, PEEP 5, FiO2 25% saturating 98% Intake 2510, output 1195 Objective Current Medications: Current Medications Sig/Yaniv Start time Last Medication Dose Route Stop Time Status Admin Acetaminophen 1,000 MG Q8P PRN 09/27 1845 AC 10/01 N/A 1 UNIT IV 0603 Albuterol Sulfate 3 ML BID 09/20 2200 AC 10/02 INH 0852 Ceftriaxone Sodium 1,000 MG DAILY 09/30 1000 AC 10/02 IV 0944 Chlorhexidine 15 ML BID 10/02 1000 AC 10/02 Gluconate PO 0944 Enoxaparin Sodium 40 MG DAILY 09/21 1000 AC 10/02 SC 0944 Insulin Detemir 10 UNITS BID 09/30 2200 AC 10/02 SC 0943 Insulin Human Regular 0 Q4H 10/01 1600 AC 10/02 SC 1254 Levetiracetam 1,000 MG Q12 09/26 2200 AC 10/02 N/A 1 UNIT IV 0944 Lisinopril 20 MG DAILY 09/30 1000 AC 10/02 PO 0944 Pantoprazole Sodium 40 MG BID 09/20 1000 AC 10/02 IV 0944 Zinc Oxide 1 GUY BID 09/24 2200 AC 10/02 TOP 0943 Vital Signs & I&O Last 24 Hrs of Vitals and I&O: Vital Signs Date Time Temp Pulse Resp B/P B/P Pulse O2 O2 Flow FiO2 Mean Ox Delivery Rate 10/02 1136 25 10/02 0944 124 124/70 10/02 0848 25 10/02 0700 98.7 118 18 119/67 98 Ventilator 25% 10/02 0527 25 10/02 0400 98 Ventilator 25% 10/02 0309 25 10/02 0035 25 10/02 0000 99 Ventilator 25% 10/01 2300 99.6 114 14 130/70 100 Ventilator 25% 10/01 2246 25 10/01 2000 99 Ventilator 25% 10/01 1932 25 10/01 1653 25 10/01 1600 98 Ventilator 25% 10/01 1600 100.4 113 14 128/70 98 Ventilator 25% 10/01 1402 25 Intake & Output 10/02 1600 10/02 0800 10/02 0000 Intake Total 770 870 Output Total 370 585 Balance 400 285 Intake, IV 100 Intake, Other 520 520 Intake, Tube 250 250 Irrigant Output, Urine 370 585 Laboratory Tests 10/02 10/01 0315 0425 Chemistry Sodium (137 - 145 mmol/L) 137 Potassium (3.5 - 5.1 mmol/L) 4.7 Chloride (98 - 107 mmol/L) 96 L Carbon Dioxide (22 - 30 mmol/L) 25 Anion Gap (5 - 16) 16 BUN (7 - 17 mg/dL) 13 Creatinine (0.5 - 1.0 mg/dL) 0.4 L Estimated GFR (>60 ml/min) > 60 Glucose (65 - 99 mg/dL) 249 H Calcium (8.4 - 10.2 mg/dL) 9.5 Phosphorus (2.5 - 4.5 mg/dL) 6.4 H Magnesium (1.6 - 2.3 mg/dL) 2.1 Total Bilirubin (0.2 - 1.3 mg/dL) 0.5 AST (14 - 36 U/L) 52 H ALT (9 - 52 U/L) 57 H Albumin (3.5 - 5.0 g/dL) 3.9 Hematology CBC w Diff NO MAN DIFF REQ WBC (4.8 - 10.8 /CUMM) 21.5 H RBC (4.20 - 5.40 /CUMM) 4.77 Hgb (12.0 - 16.0 G/DL) 13.0 Hct (37 - 47 %) 39.5 MCV (81.0 - 99.0 FL) 82.8 MCH (27.0 - 31.0 PG) 27.3 RDW (11.5 - 14.5 %) 16.6 H Plt Count (130 - 400 /CUMM) 483 H MPV (7.4 - 10.4 FL) 10.6 H Gran % (42.2 - 75.2 %) 81.1 H Lymphocytes % (20.5 - 51.1 %) 13.0 L Monocytes % (1.7 - 9.3 %) 4.7 Eosinophils % (0 - 5 %) 0.9 Basophils % (0.0 - 2.0 %) 0.3 Absolute Granulocytes (1.4 - 6.5 /CUMM) 17.4 H Absolute Lymphocytes (1.2 - 3.4 /CUMM) 2.8 Absolute Monocytes (0.10 - 0.60 /CUMM) 1.0 H Absolute Eosinophils (0.0 - 0.7 /CUMM) 0.2 Absolute Basophils (0.0 - 0.2 /CUMM) 0.1 PUBS MCHC (33.0 - 37.0 G/DL) 33.0 Toxicology Urine Opiates Screen (>2000 NG/ML) < 100.00 < 100.00 Methadone Screen (>300 NG/ML) < 40 < 40 Barbiturate Screen (>200 NG/ML) < 60 < 60 Ur Phencyclidine Scrn (>25 NG/ML) < 6.00 < 6.00 Amphetamines Screen (>1000 NG/ML) < 100 < 100 U Benzodiazepines Scrn (>200 NG/ML) > 800 H > 800 H Urine Cocaine Screen (>300 NG/ML) < 50 < 50 Urine Cannabis Screen (>50 NG/ML) < 5.00 < 5.00 10/01 0420 Chemistry Sodium (137 - 145 mmol/L) 138 Potassium (3.5 - 5.1 mmol/L) 4.9 Chloride (98 - 107 mmol/L) 98 Carbon Dioxide (22 - 30 mmol/L) 24 Anion Gap (5 - 16) 15 BUN (7 - 17 mg/dL) 15 Creatinine (0.5 - 1.0 mg/dL) 0.4 L Estimated GFR (>60 ml/min) > 60 Glucose (65 - 99 mg/dL) 300 H Calcium (8.4 - 10.2 mg/dL) 9.7 Phosphorus (2.5 - 4.5 mg/dL) 6.9 H Magnesium (1.6 - 2.3 mg/dL) 2.2 Total Bilirubin (0.2 - 1.3 mg/dL) 0.5 AST (14 - 36 U/L) 47 H ALT (9 - 52 U/L) 65 H Albumin (3.5 - 5.0 g/dL) 4.0 Hematology CBC w Diff NO MAN DIFF REQ WBC (4.8 - 10.8 /CUMM) 19.0 H RBC (4.20 - 5.40 /CUMM) 4.64 Hgb (12.0 - 16.0 G/DL) 12.6 Hct (37 - 47 %) 38.1 MCV (81.0 - 99.0 FL) 82.1 MCH (27.0 - 31.0 PG) 27.2 RDW (11.5 - 14.5 %) 16.6 H Plt Count (130 - 400 /CUMM) 447 H MPV (7.4 - 10.4 FL) 11.3 H Gran % (42.2 - 75.2 %) 79.1 H Lymphocytes % (20.5 - 51.1 %) 14.5 L Monocytes % (1.7 - 9.3 %) 4.2 Eosinophils % (0 - 5 %) 2.0 Basophils % (0.0 - 2.0 %) 0.2 Absolute Granulocytes (1.4 - 6.5 /CUMM) 15.0 H Absolute Lymphocytes (1.2 - 3.4 /CUMM) 2.7 Absolute Monocytes (0.10 - 0.60 /CUMM) 0.8 H Absolute Eosinophils (0.0 - 0.7 /CUMM) 0.4 Absolute Basophils (0.0 - 0.2 /CUMM) 0 PUBS MCHC (33.0 - 37.0 G/DL) 33.1 Impression/Plan Impression/Plan Impression/Plan: General Appearance: intubated Head: atraumatic, normal appearance Neck: normal inspection Respiratory: lungs clear Cardiovascular: regular rate/rhythm Gastrointestinal: normal bowel sounds, soft, non-tender Extremities: normal inspection, normal capillary refill, no edema Cranial Nerves: dilated pupil, gag present has at times decorticate posture Skin: intact, normal color, warm/dry Urine tox noted still has benzo onboard Cxr nil acute IMPRESSION This is a lady with multiple medical problems including diabetes, complications from diabetes including gastroparesis per history, but pressure history, chronic low back pain, migraine, urinary incontinence, GERD, narcotic use and benzodiazepine use followed by pain Center per the history noted in the house staff's note now comes in with * Anoxic brain injury - Significant decreased mental status with comatose condition with profound hypoglycemia now with significant anoxic brain injury as noted in the CAT scan and physical exam. Patient did not really respond to Narcan. Differential diagnoses include hypoglycemia from her diabetes medication versus benzodiazepine overdose versus narcotic overdose intentionally on a nonintentional is unknown at this time. Vomiting with aspiration pneumonia leading to hypoxic brain injury as well as a possibility * Respiratory failure related to severe anoxic brain injury * Resolving High fever related to brain stem issues prob, now has leukocytosis * Sig vasomotor instablity prob due to brain stem issues * Significant vomiting upon admission or prior to admission with aspiration pneumonitis now with ecoli * History of diabetes, hypertension, significant hypokalemia, gastroparesis * Previous history of low back pain and depression * 14 mm bony lesion and T5 vertebral body which needs to be followed in the future * History of sig narcotic use * Significant history of gastroparesis now with the coffee ground * Benzo still high in the blood REC Continue mechanical ventilator Keep the head of bed elevated, periodex oral care and ppi daily Seven days of abx Aggressive oral suctioning Prog poor Check urine tox daily DVT prophylaxis Pt still critically ill
[2016-10-02 14:00] VITALS: BP 102/70
[2016-10-02 16:00] VITALS: BP 118/70
[2016-10-03] VITALS: BP 136/80
[2016-10-03 05:54] LABS: ABSOLUTE BASOPHIL COUNT 0.1 /CUMM (0.0-0.2); ABSOLUTE EOSINOPHIL COUNT 0.2 /CUMM (0.0-0.7); ABSOLUTE GRANULOCYTE CT 17.4 /CUMM (1.4-6.5); ABSOLUTE LYMPH COUNT 3.8 /CUMM (1.2-3.4); ABSOLUTE MONOCYTE COUNT 0.8 /CUMM (0.10-0.60); BASOPHIL % 0.3 % (0.0-2.0); GRANULOCYTE % 78.1 % (42.2-75.2); HEMATOCRIT 36.9 % (37-47); MEAN CORPUSCULAR HGB 27.5 PG (27.0-31.0); MEAN CORPUSCULAR HGB CONC 33.3 G/DL (33.0-37.0); MEAN CORPUSCULAR VOLUME 82.5 FL (81.0-99.0); MEAN PLATELET VOLUME 10.7 FL (7.4-10.4); PLATELET COUNT 471 /CUMM (130-400); RBC DISTRIBUTION WIDTH 16.5 % (11.5-14.5); RED BLOOD CELL CT 4.47 /CUMM (4.20-5.40); WHITE BLOOD CELL COUNT 22.3 /CUMM (4.8-10.8)
[2016-10-03 08:00] VITALS: BP 142/86
--- NOTE | 2016-10-03 08:43 | PN- Resident CRCU ---
Subjective HPI/CRCU Issues: Follow up: -Anoxic brain injury with possible pain stem dysfunction (hyperthermia) -Acute hypoxic respiratory failure related to severe anoxic brain injury -Diabetes mellitus, hypertension -Chronic low back pain on narcotics Patient was seen and examined this morning, no overnight events reported by the nurse. Patient remained intubated, decorticating posture, respond to painful stimuli such as suctioning with opening her eyes, no purposeful movement. Urine benezo went down to 400 today. 24 Hour Events: Temperature 99.9, MAXIMUM TEMPERATURE 102.8 Heart rate lowest 104, highest 126 sinus rhythm Blood pressure lowest 85/49, highest 160/98 Intake 2676, output 1200 A/C mode, rate 14, tidal volume 450, PEEP 5, FiO2 25% with saturation 96% Objective Vital Signs & I&O Last 8 Hrs of Vitals and I&O: 11 Exam General Appearance: intubated Head: atraumatic, normal appearance Ears, Nose, Throat: normal ENT inspection Neck: normal inspection, supple, full range of motion Respiratory: normal breath sounds, chest non-tender Cardiovascular: regular rate/rhythm Gastrointestinal: normal bowel sounds, soft, non-tender Extremities: normal inspection, normal capillary refill, normal range of motion, no edema Cranial Nerves: very sluggish bilateral pupillary reflexes Current Medications: Current Medications Sig/Yaniv Start time Last Medication Dose Route Stop Time Status Admin Acetaminophen 1,000 MG .STK-MED ONE 10/02 2037 DC IV 10/02 2038 Acetaminophen 1,000 MG Q8P PRN 09/27 1845 AC 10/02 N/A 1 UNIT IV 2041 Albuterol Sulfate 3 ML BID 09/20 2200 AC 10/03 INH 0808 Ceftriaxone Sodium 1,000 MG DAILY 09/30 1000 AC 10/03 IV 10/03 2300 0920 Chlorhexidine 15 ML BID 10/02 1000 AC 10/03 Gluconate PO 0921 Enoxaparin Sodium 40 MG DAILY 09/21 1000 AC 10/03 SC 0921 Insulin Detemir 12 UNITS BID 10/03 2199 AC SC Insulin Detemir 10 UNITS BID 09/30 220 DC 10/03 SC 0926 Insulin Human Regular 8 UNITS .STK-MED ONE 10/03 0334 DC IV 10/03 0335 Insulin Human Regular 8 UNITS .STK-MED ONE 10/03 0002 DC IV 10/03 0003 Insulin Human Regular 12 UNITS .STK-MED ONE 10/02 2012 DC IV 10/02 2013 Insulin Human Regular 0 Q4H 10/01 1600 AC 10/03 SC 1420 Levetiracetam 1,000 MG Q12 09/26 2200 AC 10/03 N/A 1 UNIT IV 0921 Lisinopril 20 MG DAILY 09/30 1000 AC 10/03 PO 0921 Pantoprazole Sodium 40 MG BID 09/20 1000 AC 10/03 IV 0921 Zinc Oxide 1 UGY BID 09/24 2200 AC 10/03 TOP 0923 Impression/Plan Impression/Problem List Impression: Ms. Bowen is a 41 year old female with past medical history of diabetes, hypertension, gastroparesis and depression who was BIBA after she was found unresponsive and covered in her vomitus at home on 09/19/2016. She was admitted in ICU for closer monitoring. #Axonal brain injury status post hypoxic encephalopathy aspiration pneumonia versus medication overdose. -Limited response to Narcan on 09/20/2016. -Urine positive for opiates and benzodiazepine. Repeated urine tox consistently revealed high benzodiazepines concentration, today 10/03 benzodiazepine urine level decreased to 421 -Quantitative benzodiazepines level Oxazepam 1053 Nordiazepam 242 Lorazepam none Temaepam 1051 Alprazolam not detected Triazolam not detected -No reports for seizure and no Ativan was given during hospital stay -Neurology consultation was obtained, thanks for recommendation. CT head without contrast and EEG were repeated based on new recommendation, CT head didn 't show any changes, EEG revealed diffuse cerebral dysfunction(worsen). CT head without contrast 09/26 IMPRESSION: 1. No acute intracranial hemorrhage. 2. Again noted is decreased lwtv-fvkta-cbaas matter differentiation of the cerebral hemispheres. Also, there is decreased attenuation of basal ganglia as may be seen in hypoxic-ischemic brain injury. CT head without contrast on admission 09/19 IMPRESSION: Diffuse loss of pablo-white matter differentiation and diffuse sulcal effacement within the bilateral cerebral hemispheres, concerning for global anoxic brain injury. No acute intracranial hemorrhage, mass or mass effect or abnormal extra- axial fluid collections. -EEG 09/21/16 Abnormal EEG due to diffuse background slowing suggestive of cerebral dysfunction with suggestive structural abnormality within the left frontotemporal region. No suggestion of subclinical seizures. -IV Protonix and daily oral care. -EEG 09/28/16 Abnormal EEG due to generalized slowing of the background rhythm consistent with diffuse cerebral dysfunction. No focal or epileptiform features were noted. #Brief seizure -Continue Keppra to 1000 mg IV twice a day -Continue electrolyte replacement #Acute hypoxic respiratory failure secondary anoxic brain injury. -Continue intubation. Repeat chest x-ray in a.m. while intubated. -Off IV fluid -Continue tube feed, rate to 65 -Last ABG 09/29/16: 7.47/36/88/26 #Aspiration pneumonia -Patient was initially treated for aspiration pneumonia with Unasyn, was discontinued on 09/25 -Blood culture negative, respiratory culture positive for mixed marislo, urine culture positive for staph coagulase negative mostly colonization -Patient spiked fever on Wednesday 09/27 and was started on vancomycin and ceftaz, switched to ceftriaxone -Continue ceftriaxone 1000 mg daily Day#7, today is last day of antibiotic -Hyperthermia could be related to brainstem dysfunction -Sputum culture grew Escherichia coli -Lower extremity Doppler scan rule out DVT -Abdominal ultrasound didn't reveal any acute abnormality #Leukocytosis/thrombocytosis -Leukocytosis with no bandemia, granuolocytosis -Platelet creeping up -Fabrile -Although BUN is within normal, this CBC abnormality can be contributed to dehydration -Patient has one scaral abrasion -She is on ceftriaxone that cover for UTI except if she has resistant bugs -Consider U/A, urine culture #History of diabetes. -NovoLog sliding scale, avoid strict glucose control -Blood sugar still not under control, will increase Levemir to 12 units BID for better glucose control -NSS Q4 hours will increase SSC by 2 units -Tube feedings, nutrition consultation was obtained -Consider increase water flush #Hypertension -Target blood pressure systolic less than 160 -Patient had systolic of 75 this morning, lisinopril was held -Continue to be tachycardic 120s #Transaminitis -Elevated liver function test since 09/25 AST 56<52<47<47<52<57<71<55<57 ALT 54<57<65<71<95<98<101<78<61 #DVT prophylaxis -ALPS, Lovenox #Diet -Tube feeding #Code full Problem List: 1. Anoxic brain injury 2. Aspiration pneumonia 3. Respiratory failure Pain Ratin Tomorrow's Labs & Rationales: CBc, ICU bundle Plan DVT/Prophylaxis: mechanical
--- NOTE | 2016-10-03 09:11 | RADIOLOGY REPORT ---
EXAMINATION: CHEST 1 VIEW CLINICAL INFORMATION: Intubated. COMPARISON: Multiple prior exams are reviewed. The most recent is from 10/02/2016. TECHNIQUE: An AP view of the chest is provided. FINDINGS: The cardiac silhouette is not enlarged. An endotracheal tube is in place. The tip is approximately 6 cm above the maureen. An enteric tube is in unchanged position. The mediastinal and hilar contours are unremarkable. There are neither pleural effusions nor pneumothoraces. There are no consolidations. The osseous structures are unremarkable. IMPRESSION: Endotracheal tube in place. No evidence for acute disease.
--- NOTE | 2016-10-03 10:43 | PN- CRCU ---
Subjective HPI/Critical Care Issues: pt seen and examined benzodiazepine level reduced remains intubated blinking, some movements responds to painful stimuli AC - 550/14/5/25% remains febrile intubated for 2 weeks Objective Current Medications: Current Medications Sig/Yaniv Start time Last Medication Dose Route Stop Time Status Admin Acetaminophen 1,000 MG .STK-MED ONE 10/02 2037 DC IV 10/02 2038 Acetaminophen 1,000 MG Q8P PRN 09/27 1845 AC 10/02 N/A 1 UNIT IV 2041 Albuterol Sulfate 3 ML BID 09/20 2200 AC 10/03 INH 0808 Ceftriaxone Sodium 1,000 MG DAILY 09/30 1000 AC 10/03 IV 10/03 2300 0920 Chlorhexidine 15 ML BID 10/02 1000 AC 10/03 Gluconate PO 0921 Enoxaparin Sodium 40 MG DAILY 09/21 1000 AC 10/03 SC 0921 Insulin Detemir 10 UNITS BID 09/30 2200 AC 10/03 SC 0926 Insulin Human Regular 8 UNITS .STK-MED ONE 10/03 0002 DC IV 10/03 0003 Insulin Human Regular 12 UNITS .STK-MED ONE 10/02 2013 DC IV 10/02 2014 Insulin Human Regular 0 Q4H 10/01 1600 AC 10/03 SC 0925 Levetiracetam 1,000 MG Q12 09/26 2200 AC 10/03 N/A 1 UNIT IV 0921 Lisinopril 20 MG DAILY 09/30 1000 AC 10/03 PO 0921 Pantoprazole Sodium 40 MG BID 09/20 1000 AC 10/03 IV 0921 Zinc Oxide 1 GUY BID 09/24 2200 AC 10/03 TOP 0923 Vital Signs & I&O Last 24 Hrs of Vitals and I&O: Vital Signs Date Time Temp Pulse Resp B/P B/P Pulse O2 O2 Flow FiO2 Mean Ox Delivery Rate 10/03 0921 113 138/74 10/03 0830 25 10/03 0557 25 10/03 0401 25 10/03 0400 98 Ventilator 25% 10/03 0038 25 10/03 0000 99.1 108 14 136/80 99 Ventilator 25% 10/03 0000 99 Ventilator 25% 10/02 2244 25 10/02 2225 99.9 10/02 2042 101.0 10/02 2000 97 Ventilator 25% 10/02 1933 25 10/02 1600 99.7 116 16 118/70 98 Ventilator 25% 10/02 1600 98 Ventilator 25% 10/02 1540 25 10/02 1436 99.8 10/02 1400 102.8 116 14 102/70 97 Ventilator 25% 10/02 1337 102.8 10/02 1323 25 10/02 1200 97 Ventilator 25% 10/02 1136 25 Intake & Output 10/03 1600 10/03 0800 10/03 0000 Intake Total 739 901 Output Total 600 300 Balance 139 601 Intake, IV 260 Intake, Tube 464 391 Feeding Intake, Tube 275 250 Irrigant Number 1 0 Bowel Movements Output, Urine 600 300 Exam Other Physical Findings: gen intubated heent ett cvs s1, s2 lungs transmitted abd soft bs+ ext no edema Results Last 24 Hrs of Lab Results: Laboratory Tests 10/03/16 0400: Anion Gap 13, Estimated GFR > 60, Glucose 184 H, Calcium 9.4, Phosphorus 7.1 H , Magnesium 2.1, Total Bilirubin 0.5, AST 56 H, ALT 54 H, Albumin 3.9, CBC w Diff NO MAN DIFF REQ, RBC 4.47, MCV 82.5, MCH 27.5, RDW 16.5 H, MPV 10.7 H, Gran % 78.1 H, Lymphocytes % 16.9 L, Monocytes % 3.7, Eosinophils % 1.0, Basophils % 0.3, Absolute Granulocytes 17.4 H, Absolute Lymphocytes 3.8 H, Absolute Monocytes 0.8 H, Absolute Eosinophils 0.2, Absolute Basophils 0.1, PUBS MCHC 33.3, Urine Opiates Screen < 100.00, Methadone Screen < 40, Barbiturate Screen < 60, Ur Phencyclidine Scrn < 6.00, Amphetamines Screen < 100 , U Benzodiazepines Scrn 421 H, Urine Cocaine Screen < 50, Urine Cannabis Screen < 5.00 Impression/Plan Impression/Plan Impression/Plan: Impression 41 year old woman * presumed anoxic brain injury secondary to likely overdose of benzodiazepines * respiratory failure due to inability to protect airway * hyperthermia, likely related to brainstem injury also aspiration pneumonia with e.coli in the sputum * substance dependence Plan Respiratory -continue mechanical ventilation -plan for family discussions and next week plan for goals of care, would be a candidate for tracheostomy if family wants to continue care -TRC/Nebs ID -last day of ceftriaxone -will monitor -fevers maybe neurologic CVS -hemodynamic monitoring -on lisinopril Heme -baseline coags Metabolic -ins/outs -creatinine -monitor electrolytes -monitor lfts -glucose control Alimentary -tube feeds Neuro -f/u neurology after goals of care addressed for prognosis DVT prophylaxis at all times - Lovenox TTS 45min
[2016-10-03 16:00] VITALS: BP 140/80
[2016-10-03 21:38] LABS: PT 13.8 SEC (9.4-12.5)
[2016-10-04] VITALS: BP 109/59
[2016-10-04 05:55] LABS: PT 13.3 SEC (9.4-12.5)
[2016-10-04 05:56] LABS: ABSOLUTE BASOPHIL COUNT 0.1 /CUMM (0.0-0.2); ABSOLUTE EOSINOPHIL COUNT 0.3 /CUMM (0.0-0.7); ABSOLUTE GRANULOCYTE CT 11.6 /CUMM (1.4-6.5); ABSOLUTE LYMPH COUNT 4.6 /CUMM (1.2-3.4); BASOPHIL % 0.5 % (0.0-2.0); EOSINOPHIL % 1.6 % (0-5); MEAN CORPUSCULAR HGB 27.1 PG (27.0-31.0); MEAN CORPUSCULAR HGB CONC 32.7 G/DL (33.0-37.0); PLATELET COUNT 422 /CUMM (130-400); RBC DISTRIBUTION WIDTH 15.9 % (11.5-14.5); RED BLOOD CELL CT 4.22 /CUMM (4.20-5.40); WHITE BLOOD CELL COUNT 17.6 /CUMM (4.8-10.8)
--- NOTE | 2016-10-04 07:00 | NUR ---
REC'D PT IN BED @1999. ASSESSMENT DONE. REMAINS ON THE INTUBATED & VENTED W/AC MODE W/RATE 14/ VT 450/ FIO2 25%/ PEEP 5. TEMP 103 VT & HR >110-120'S WHEN FEBRILE. INFORMED DR. Sandra DAMON RE. PT'S VS/STATUS. REC'D TYLENOL IV WHICH WAS NOT DUE & GOYAL CX EARLIER. ORDERS GIVEN. MOTRIN PO LIQ Q6HR WHICH WAS GIVEN SEE EMAR. AFTER 1HR TEMP 102.5. PT REC'D ANOTHER DOSE OF TYLENOL FOR TEMP 102.8 @[place] AFTER 1HR 101.6. PLACED ICE PACK TO ANNABEL GROIN/AXILLA & COOL TOWEL TO FOREHEAD. COOL COMPLETE BATH GIVEN. TEMP AFTER 1HR 100.8. HELD OFF GIVEN ANOTHER DOSE OF MOTRIN/TYLENOL. HR < 90-100'S. NO CHANGES IN SBP OR POX. ANY TACTILE STIMULUS POSTURING/DECEREBRATE & OPEN EYES WITH SUCTIONING OR PLACING A NEW IV, PT DOES NOT FOLLOW COMMANDS NO TRACKING WITH HER EYES. POPPED BLISTER TO L BUTTOCK LEFT ELLY SKIN IS PINK & ROLLED DUODERM OFF FOR NOW BED W/ROTATIONAL MODE. 0600 TEMP 99.9 0730 [facility].
--- NOTE | 2016-10-04 07:07 | RADIOLOGY REPORT ---
EXAMINATION: CHEST 1 VIEW CLINICAL INFORMATION: Intubated. COMPARISON: Multiple prior exams are reviewed. The most recent is from 10/03/2016. TECHNIQUE: An AP view of the chest is provided. FINDINGS: The cardiac silhouette is not enlarged. Endotracheal tube is in place. The tip is approximately 3.5 cm above the maureen. An enteric tube is in unchanged position. The mediastinal and hilar contours are unremarkable. There are neither pleural effusions nor pneumothoraces. There are no consolidations. The osseous structures are unremarkable. IMPRESSION: Endotracheal tube and enteric tube in place. No acute airspace disease.
--- NOTE | 2016-10-04 07:59 | PN- Resident CRCU ---
Subjective HPI/CRCU Issues: Patient seen and examined at the bedside this AM. She remains on mechanical ventilation without sedation. Patient noted to be febrile throughout most of the night with Tmax 103.0 rectally at 2000. Otherwise, no other reported events overnight. There is continued decorticating posture, she responds to suctioning with opening her eyes thoughs he continues to have no purposeful movement. Urine benzos today LOWER to 145. 24 Hour Events: Vital signs last 24 hours: T 99.8-103.0, HR 98-122, RR 14-18, BP 97-155/52-84, O2 saturation 96-98% on AV ventilation RR 14 TV 450 FiO2 25% and 5 PEEP. Total intake last 24 hours: 2851 cc Total output last 24 hours: 1350 cc Objective Vital Signs & I&O Last 8 Hrs of Vitals and I&O: T 99.8-103.0, HR 98-122, RR 14-18, BP 97-155/52-84, O2 saturation 96-98% on AV ventilation RR 14 TV 450 FiO2 25% and 5 PEEP. Exam General Appearance: no apparent distress, intubated Head: atraumatic, normal appearance Ears, Nose, Throat: normal ENT inspection Neck: normal inspection, supple Respiratory: normal breath sounds, chest non-tender Cardiovascular: regular rate/rhythm Gastrointestinal: normal bowel sounds, soft, non-tender Extremities: normal inspection, no edema Skin: intact, warm/dry Nutrition Nutrition: tube feeding Current Medications: Current Medications Sig/Yaniv Start time Last Medication Dose Route Stop Time Status Admin Acetaminophen 1,000 MG .STK-MED ONE 10/04 0041 DC IV 10/04 0042 Acetaminophen 1,000 MG Q8P PRN 09/27 1845 AC 10/04 N/A 1 UNIT IV 0041 Albuterol Sulfate 3 ML BID 09/20 2200 AC 10/04 INH 0847 Ceftazidime 1,000 MG IQ8 10/04 1600 AC IV Ceftriaxone Sodium 1,000 MG DAILY 09/30 1000 DC 10/03 IV 10/03 2300 0920 Chlorhexidine 15 ML BID 10/02 1000 AC 10/04 Gluconate PO 1017 Enoxaparin Sodium 40 MG DAILY 09/21 1000 AC 10/04 SC 1014 Ibuprofen 600 MG Q6 PRN 10/03 2030 AC 10/03 PO 2131 Insulin Detemir 12 UNITS BID 10/03 2200 AC 10/04 SC 1017 Insulin Human Regular 0 Q4H 10/01 1600 AC 10/04 SC 1240 Levetiracetam 1,000 MG Q12 09/26 220 AC 10/04 N/A 1 UNIT IV 1016 Lisinopril 20 MG DAILY 09/30 1000 AC 10/04 PO 1014 Pantoprazole Sodium 40 MG BID 09/20 1000 AC 10/04 IV 1014 Polyethylene Glycol 17 GM DAILY PRN 10/04 0815 AC 10/04 PO 1017 Vancomycin HCl 1,000 MG Q12 10/04 1039 AC 10/04 Sodium Chloride 250 ML IV 1300 Zinc Oxide 1 GUY BID 09/24 2200 AC 10/04 TOP 1015 Impression/Plan Impression/Problem List Impression: Ms. Bowen is a 41 year old female with PMH diabetes, hypertension, gastroparesis and depression who was BIBA after she was found unresponsive and covered in her vomitus while at home on 09/19/2016. 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 -Limited response to Narcan on 09/20/2016. -Urine positive for opiates and benzodiazepine. Repeated urine tox consistently revealed high benzodiazepines concentration, today 10/04 they have decreased to 145 -Quantitative benzodiazepines level as below: * Oxazepam 1053 * Nordiazepam 242 * Lorazepam none * Temaepam 1051 * Alprazolam not detected * Triazolam not detected -No reports of seizure/no ativan was given during hospital stay -Neurology consultation was obtained, recommendation appreciated. CT head without contrast and EEG were repeated based on new recommendation, CT head showed no changes, EEG revealed diffuse cerebral dysfunction (worse from prior) CT head without contrast 09/26 IMPRESSION: 1. No acute intracranial hemorrhage. 2. Again noted is decreased inoc-nurbe-nbzht matter differentiation of the cerebral hemispheres. Also, there is decreased attenuation of basal ganglia as may be seen in hypoxic-ischemic brain injury. CT head without contrast on admission 09/19 IMPRESSION: Diffuse loss of pablo-white matter differentiation and diffuse sulcal effacement within the bilateral cerebral hemispheres, concerning for global anoxic brain injury. No acute intracranial hemorrhage, mass or mass effect or abnormal extra- axial fluid collections. -EEG 09/21/16 Abnormal EEG due to diffuse background slowing suggestive of cerebral dysfunction with suggestive structural abnormality within the left frontotemporal region. No suggestion of subclinical seizures. -IV Protonix and daily oral care. -EEG 09/28/16 Abnormal EEG due to generalized slowing of the background rhythm consistent with diffuse cerebral dysfunction. No focal or epileptiform features were noted. #Brief seizure -Continue Keppra to 1000 mg IV twice a day -Continue electrolyte replacement #Acute hypoxic respiratory failure secondary to anoxic brain injury. -Continue intubation. Repeat chest x-ray daily while intubated. -Off IV fluids, fluids given via tube feeds -Continue tube feed at goal rate of 65 -Last ABG 09/29/16: 7.47/36/88/26 #Aspiration pneumonia -Patient was initially treated for aspiration pneumonia with Unasyn, was discontinued on 09/25 -Blood culture negative, respiratory culture positive for mixed marisol, urine culture positive for staph coagulase negative mostly colonization -Patient spiked fever on Wednesday 09/27 and was started on vancomycin and ceftaz, switched to ceftriaxone -Ceftriaxone 1000 mg daily completed yesterday -Hyperthermia could be related to brainstem dysfunction -Sputum culture grew Escherichia coli -Lower extremity Doppler scan ruled out DVT on 09/28/16 -Abdominal ultrasound didn't reveal any acute abnormality on 09/28/16 #Leukocytosis/thrombocytosis -Leukocytosis with no bandemia, granuolocytosis again noted today -Patient noted to have Tmax to 103 overnight, echo ordered to r/o Infective endocarditis -Dr. Vizcaino contacted and suggested empiric treatment with ceftazidime and vancomycin due to persistent leukocytosis and fevers -Though fevers may be related to brain stem dysfunction, organic soure cannot be ruled out; skin, urine, blood and abdomen remain possible sources (CXR shows no infiltrate) -Blood cultures and urine culture drawn yesterday, f/u results #History of diabetes. -NovoLog sliding scale, avoid strict glucose control -Levemir continued at 12 U SC BID -Tube feedings continued, nutrition consultation was obtained #Hypertension -Target blood pressure systolic less than 160 -BP well controlled, continue lisinopril 20 mg PO daily -Continue to be tachycardic 120s #Transaminitis -IMPROVED -AST 49 (down from peak of 71) and ALT 41 (peaked at 101) #DVT prophylaxis -ALPS, Lovenox #Diet -Tube feeding #Code FULL Problem List: 1. Respiratory failure 2. Aspiration pneumonia 3. Anoxic brain injury Pain Ratin Tomorrow's Labs & Rationales: CBC ICU bundle Plan DVT/Prophylaxis: mechanical
[2016-10-04 08:00] VITALS: BP 128/80
--- NOTE | 2016-10-04 09:05 | PN- CRCU ---
Subjective HPI/Critical Care Issues: pt seen and examined remains on mechanical ventilation opens eyes to tactile stimuli continues to be febrile Objective Current Medications: Current Medications Sig/Yaniv Start time Last Medication Dose Route Stop Time Status Admin Acetaminophen 1,000 MG .STK-MED ONE 10/04 0041 DC IV 10/04 0042 Acetaminophen 1,000 MG Q8P PRN 09/27 1845 AC 10/04 N/A 1 UNIT IV 0041 Albuterol Sulfate 3 ML BID 09/20 2200 AC 10/04 INH 0847 Ceftriaxone Sodium 1,000 MG DAILY 09/30 1000 DC 10/03 IV 10/03 2300 0920 Chlorhexidine 15 ML BID 10/02 1000 AC 10/03 Gluconate PO 2134 Enoxaparin Sodium 40 MG DAILY 09/21 1000 AC 10/03 SC 0921 Ibuprofen 600 MG Q6 PRN 10/03 2030 AC 10/03 PO 2131 Insulin Detemir 12 UNITS BID 10/03 2200 AC 10/03 SC 2133 Insulin Detemir 10 UNITS BID 09/30 2200 DC 10/03 SC 0926 Insulin Human Regular 0 Q4H 10/01 1600 AC 10/04 SC 0430 Levetiracetam 1,000 MG Q12 09/26 2200 AC 10/03 N/A 1 UNIT IV 2132 Lisinopril 20 MG DAILY 09/30 1000 AC 10/03 PO 0921 Pantoprazole Sodium 40 MG BID 09/20 1000 AC 10/03 IV 2134 Polyethylene Glycol 17 GM DAILY PRN 10/04 0815 AC PO Zinc Oxide 1 GUY BID 09/24 2200 AC 10/03 TOP 2131 Vital Signs & I&O Last 24 Hrs of Vitals and I&O: Vital Signs Date Time Temp Pulse Resp B/P B/P Pulse O2 O2 Flow FiO2 Mean Ox Delivery Rate 10/04 0854 25 10/04 0612 25 10/04 0400 95 Ventilator 25% 10/04 0258 25 10/04 0140 101.6 10/04 0047 25 10/04 0041 102.8 10/04 0000 102.8 110 14 109/59 97 Ventilator 25% 10/04 0000 97 Ventilator 25% 10/03 2239 25 10/03 2230 102.5 10/03 2200 97 Ventilator 25% 10/03 2131 103.0 10/03 1935 25 10/03 1739 101.4 10/03 1640 102.8 10/03 1600 94 Ventilator 25% 10/03 1600 102.8 118 14 140/80 97 Ventilator 25% 10/03 1550 25 10/03 1418 25 10/03 1200 98 Ventilator 25% 10/03 1110 25 10/03 0921 113 138/74 Intake & Output 10/04 1600 10/04 0800 10/04 0000 Intake Total 821 980 Output Total 400 400 Balance 421 580 Intake, IV 100 220 Intake, Tube 446 455 Feeding Intake, Tube 275 305 Irrigant Number 2 1 Bowel Movements Output, Urine 400 400 Exam Other Physical Findings: gen intubated heent ett cvs s1, s2 lungs transmitted abd soft bs+ ext no edema Results Last 24 Hrs of Lab Results: Laboratory Tests 10/04/16 0430: Anion Gap 14, Estimated GFR > 60, Glucose 200 H, Calcium 9.1, Phosphorus 7.3 H , Magnesium 2.2, Total Bilirubin 0.3, AST 49 H, ALT 41, Albumin 3.4 L, PT 13.3 H, INR 1.27 H, CBC w Diff MAN DIFF ORDERED, RBC 4.22, MCV 83.0, MCH 27.1, RDW 15.9 H, MPV 11.0 H, Gran % 66.0, Lymphocytes % 26.0, Monocytes % 5.9, Eosinophils % 1.6, Basophils % 0.5, Absolute Granulocytes 11.6 H, Absolute Lymphocytes 4.6 H, Absolute Monocytes 1.0 H, Absolute Eosinophils 0.3, Absolute Basophils 0.1, Platelet Estimate VERIFIED BY SMEAR, Anisocytosis 1+, PUBS MCHC 32.7 L, Urine Opiates Screen < 100.00, Methadone Screen < 40, Barbiturate Screen < 60, Ur Phencyclidine Scrn < 6.00, Amphetamines Screen < 100 , U Benzodiazepines Scrn 145, Urine Cocaine Screen < 50, Urine Cannabis Screen < 5.00 10/03/16 1642: PT 13.8 H, INR 1.32 H 10/03/16 1040: Urine Color YEL, Urine Clarity HAZY H, Urine pH 6.0, Ur Specific Sullivan 1.020, Urine Protein TRACE H, Urine Ketones NEG, Urine Nitrite NEG, Urine Bilirubin NEG, Urine Urobilinogen 0.2, Ur Leukocyte Esterase NEG, Ur Microscopic SEDIMENT EXAMINED, Urine RBC 25-50 H, Urine WBC 5-10 H, Ur Epithelial Cells RARE, Urine Bacteria MOD H, Hyaline Casts RARE H, Urine Mucus RARE, Micro UA Comment , Urine Hemoglobin LARGE H, Urine Glucose NEG Impression/Plan Impression/Plan Impression/Plan: Impression 41 year old woman * presumed anoxic brain injury secondary to likely overdose of benzodiazepines * respiratory failure due to inability to protect airway * hyperthermia, likely related to brainstem injury also aspiration pneumonia with e.coli in the sputum * substance dependence Plan Respiratory -continue mechanical ventilation -plan for family discussions and next week plan for goals of care, would be a candidate for tracheostomy if family wants to continue care -TRC/Nebs ID -completed abx -will monitor -fevers maybe neurologic -check ECHO -ID input regarding empiric abx, completed ceftriaxone, keeps having fevers, no clear source, possibly neurogenic CVS -hemodynamic monitoring -on lisinopril Heme -baseline coags Metabolic -ins/outs -creatinine -monitor electrolytes -monitor lfts -glucose control Alimentary -tube feeds Neuro -f/u neurology after goals of care addressed for prognosis DVT prophylaxis at all times - Lovenox TTS 40min
[2016-10-04 13:00] VITALS: BP 111/67
[2016-10-04 16:00] VITALS: BP 130/70
--- NOTE | 2016-10-04 16:00 | NUR ---
ASSUMED CARE OF PATIENT. PATIENT REMAINS RESPONSIVE TO PAIN ONLY. PUPILS EQUAL AND SLUGGISH TO REACT. WITH DECORTICATE POSTURING TO NOXIOUS STIMULI. SINUS TACH ON MONITOR WITH REGULAR HEART SOUNDS. ET TUBE IN PLACE, LUNGS DIMINISHED AT BASES OXYGEN SAT 99%. MOUTH WITH COPIOUS ORAL SECRETIONS REQUIRING SUCTIONING FOUL SMELLING, MOUTH CARE DONE. ORAL GASTRIC TUBE INPLACE WITH TUBE FEEDING OF GLUCERNA 1.2 INFUSING WITHOUT ISSUE. BELLY SOFT WITH GOOD BOWEL SOUNDS. CRAMER INTACT DRAINING CLEAR YELLOW URINE. DUODERM INTACT TO L BUTTOCK BROKEN BLISTER AREA.
[2016-10-05] VITALS: BP 124/70
--- NOTE | 2016-10-05 01:27 | NUR ---
PT UNRESPONSIVE, PUPILS EQUAL. OPENS EYES BUT NOT TO COMMAND. DECORTICATES DURING CARE. INTUBATED AT 25% FIO2. SATURATION 100%, LUNGS SOUND CLEAR. OGT IN PLACE, GLUCERNA 1.2 AT 65ML/H. 125 ML WATER FLUSHES GIVEN ORDERED. ABDOMEN SOFT, NORMOACTIVE BS. CRAMER IN PLACE, ADEQUATE UO NOTED. TEMP 99.8, ABT CONTINUED.
[2016-10-05 04:49] LABS: ABSOLUTE BASOPHIL COUNT 0 /CUMM (0.0-0.2); ABSOLUTE EOSINOPHIL COUNT 0.4 /CUMM (0.0-0.7); ABSOLUTE GRANULOCYTE CT 13.3 /CUMM (1.4-6.5); BASOPHIL % 0.2 % (0.0-2.0); EOSINOPHIL % 2.4 % (0-5); GRANULOCYTE % 74.8 % (42.2-75.2); HEMATOCRIT 35.5 % (37-47); MEAN CORPUSCULAR HGB 26.8 PG (27.0-31.0); MEAN CORPUSCULAR HGB CONC 32.5 G/DL (33.0-37.0); MEAN CORPUSCULAR VOLUME 82.6 FL (81.0-99.0); MEAN PLATELET VOLUME 10.9 FL (7.4-10.4); PLATELET COUNT 422 /CUMM (130-400); RBC DISTRIBUTION WIDTH 15.9 % (11.5-14.5); RED BLOOD CELL CT 4.31 /CUMM (4.20-5.40); WHITE BLOOD CELL COUNT 17.7 /CUMM (4.8-10.8)
--- NOTE | 2016-10-05 07:24 | PN- Resident CRCU ---
Subjective HPI/CRCU Issues: Follow up: -Anoxic brain injury with possible pain stem dysfunction (hyperthermia) -Acute hypoxic respiratory failure related to severe anoxic brain injury -Diabetes mellitus, hypertension -Chronic low back pain on narcotics Patient was seen and examined this morning, intubated without sedation, no overnight events was reported by the nurse. Patient was started on vancomycin and ceftaz yesterday given high-grade fever 103 and persistent leukocytosis. Sister is at bedside, plan for goal of care discussion today. 24 Hour Events: AC 450/14/5/25% saturated 100% Temperature 90.9, MAXIMUM TEMPERATURE 100.7 Pulse lowest 103, highest 112 sinus rhythm Blood pressure lowest 108/66, highest 169/19 Intake 3171, output 3200 Telemetry event was reviewed Objective Vital Signs & I&O Last 8 Hrs of Vitals and I&O: 11 Exam General Appearance: intubated Head: atraumatic, normal appearance Ears, Nose, Throat: normal pharynx, normal ENT inspection Neck: normal inspection, supple Respiratory: chest non-tender Cardiovascular: regular rate/rhythm Gastrointestinal: normal bowel sounds, soft, non-tender Extremities: normal inspection, normal capillary refill, normal range of motion, no edema Cranial Nerves: Sluggish bilateral pupillary reflex Current Medications: Current Medications Sig/Yaniv Start time Last Medication Dose Route Stop Time Status Admin Acetaminophen 1,000 MG Q8P PRN 09/27 1845 AC 10/04 N/A 1 UNIT IV 0041 Albuterol Sulfate 3 ML BID 09/20 2200 AC 10/05 INH 0852 Ceftazidime 1,000 MG IQ8 10/04 1600 DC 10/05 IV 0744 Chlorhexidine 15 ML BID 10/02 1000 AC 10/05 Gluconate PO 0931 Enoxaparin Sodium 40 MG DAILY 09/21 1000 AC 10/05 SC 0930 Ibuprofen 600 MG Q6 PRN 10/03 2030 AC 10/03 PO 2131 Insulin Detemir 12 UNITS BID 10/03 2200 AC 10/05 SC 0929 Insulin Human Regular 0 Q4H 10/01 1600 AC 10/05 SC 1217 Levetiracetam 1,000 MG Q12 09/26 2200 AC 10/05 N/A 1 UNIT IV 0926 Lisinopril 20 MG DAILY 09/30 1000 AC 10/05 PO 0931 Methylprednisolone 40 MG ONCE ONE 10/05 1330 DC IV 10/05 1331 Pantoprazole Sodium 40 MG BID 09/20 1000 AC 10/05 IV 0929 Polyethylene Glycol 17 GM DAILY PRN 10/04 0815 AC 10/04 PO 1017 Scopolamine HBr 1 PAT ONE ONE 10/05 1330 DC TOP 10/05 1331 Vancomycin HCl 1,000 MG Q12H 10/05 0100 DC 10/05 Sodium Chloride 250 ML IV 1217 Vancomycin HCl 1,000 MG Q12 10/04 1039 DC 10/04 Sodium Chloride 250 ML IV 1300 Zinc Oxide 1 GUY BID 09/24 2200 AC 10/05 TOP 0931 Impression/Plan Impression/Problem List Impression: Ms. Bowen is a 41 year old female with PMH diabetes, hypertension, gastroparesis and depression who was BIBA after she was found unresponsive and covered in her vomitus while at home on 09/19/2016. 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 -Limited response to Narcan on 09/20/2016. -Urine positive for opiates and benzodiazepine. Repeated urine tox consistently revealed high benzodiazepines concentration, today 10/04 they have decreased to 145 -Quantitative benzodiazepines level as below: * Oxazepam 1053 * Nordiazepam 242 * Lorazepam none * Temaepam 1051 * Alprazolam not detected * Triazolam not detected -No reports of seizure/no ativan was given during hospital stay -Neurology consultation was obtained, recommendation appreciated. CT head without contrast and EEG were repeated based on new recommendation, CT head showed no changes, EEG revealed diffuse cerebral dysfunction -Neuro evaluation was obtained today 10/05, poor prognosis, recommendation for comfort care measures CT head without contrast 09/26 IMPRESSION: 1. No acute intracranial hemorrhage. 2. Again noted is decreased fydb-nxncz-llibr matter differentiation of the cerebral hemispheres. Also, there is decreased attenuation of basal ganglia as may be seen in hypoxic-ischemic brain injury. CT head without contrast on admission 09/19 IMPRESSION: Diffuse loss of pablo-white matter differentiation and diffuse sulcal effacement within the bilateral cerebral hemispheres, concerning for global anoxic brain injury. No acute intracranial hemorrhage, mass or mass effect or abnormal extra- axial fluid collections. -EEG 09/21/16 Abnormal EEG due to diffuse background slowing suggestive of cerebral dysfunction with suggestive structural abnormality within the left frontotemporal region. No suggestion of subclinical seizures. -IV Protonix and daily oral care. -EEG 09/28/16 Abnormal EEG due to generalized slowing of the background rhythm consistent with diffuse cerebral dysfunction. No focal or epileptiform features were noted. #Brief seizure -Continue Keppra to 1000 mg IV twice a day -Continue electrolyte replacement #Acute hypoxic respiratory failure secondary to anoxic brain injury. -Continue intubation. Repeat chest x-ray daily while intubated. -Off IV fluids, fluids given via tube feeds -Continue tube feed at goal rate of 65 -Last ABG 09/29/16: 7.47/36/88/26 #Aspiration pneumonia -Patient was initially treated for aspiration pneumonia with Unasyn, was discontinued on 09/25 -Blood culture negative, respiratory culture positive for mixed marisol, urine culture positive for staph coagulase negative mostly colonization -Patient spiked fever on Wednesday 09/27 and was started on vancomycin and ceftaz, switched to ceftriaxone -Ceftriaxone 1000 mg daily completed on 10/03 -Hyperthermia could be related to brainstem dysfunction -Sputum culture positive for Escherichia coli on 09/27, positive for ESBL producing Klebsiella on 10/03 -Vancomycin and ceftaz was started on 10/04 for fever of 103 -ID consultation was obtained, thanks for recommendation -Lower extremity Doppler scan ruled out DVT on 09/28/16 -Abdominal ultrasound didn't reveal any acute abnormality on 09/28/16 -Echo cxardiogram was obtained to role out infective endocrditis 10/05 CONCLUSIONS Normal size left ventricle. Mild concentric left ventricular hypertrophy. Normal left ventricular ejection fraction visually estimated at 65%. Abnormal relaxation filling pattern of the left ventricle for age (stage 1 diastolic dysfunction). Normal right ventricular size and function. Normal atrial size. No evidence of valvular vegetations. No evidence of valvular stenosis or regurgitation. -Blood cultures are negative so far -Urine culture positive for yeast #History of diabetes. -NovoLog sliding scale, avoid strict glucose control -Levemir continued at 12 U SC BID -Tube feedings continued, nutrition consultation was obtained #Hypertension -Target blood pressure systolic less than 160 -BP well controlled, continue lisinopril 20 mg PO daily -Continue to be tachycardic 120s #Transaminitis -IMPROVED -AST 49 (down from peak of 71) and ALT 41 (peaked at 101) #DVT prophylaxis -ALPS, Lovenox #Diet -Tube feeding #Code FULL Disscusion about goal of care will be held today Problem List: 1. Respiratory failure 2. Aspiration pneumonia 3. Anoxic brain injury Pain Ratin Tomorrow's Labs & Rationales: CBC, ICU bundle Plan DVT/Prophylaxis: mechanical
--- NOTE | 2016-10-05 07:58 | NUR ---
RECEIVED PT IN BED. UNRESPONSIVE. PUPILS EQUAL, SLUGGISH, 2MM. DOES NOT TRACK. ON VENT #7 ETT AT 24CM, VENT SETTINGS AC-14 450/ 25% PEEP 5. LUNGS RHONCHI IN UPPER LOBES, DIMINISHED IN LOWER. LARGE AMOUNTS OF ORAL SECRETIONS. MOUTH CARE PROVIDED WITH PERIDEX. SINUS TACH ON MONITOR. MANUAL B/P 124/68. AFEBRILE 98.0 VIA TEMPORAL ARTERY. TUBE FEED RUNNING VIA OGT AT 65ML/HR WITH Q4 WATER FLUSHES OF 125ML. 30ML RESIDUAL NOTED. CRAMER IN PLACE DRAINING CLEAR YELLOW URINE, ADEQUATE AMOUNTS. DUODERM TO LEFT BUTTOCK POPPED BLISTER IN PLACE. #22 LF IV, FLUSHES WELL. ACCU CHECK 251, 10 UNITS NOVOLIN GIVEN. ALPS REMAIN IN PLACE. +CMS. +BABINKSI. NO MOVEMENT OF UPPER EXTREMITIES AT REST, WITH CARE PATIENT TENSES UPPER ARMS. WILL MONITOR.
[2016-10-05 08:00] VITALS: BP 124/68
--- NOTE | 2016-10-05 09:16 | RADIOLOGY REPORT ---
EXAMINATION: XR PORTABLE CHEST CLINICAL INFORMATION: Mechanical ventilation. ET tube placement. COMPARISON: Chest done on 10/04/2016. TECHNIQUE: Portable frontal view of the chest was obtained. FINDINGS: The tip of the endotracheal tube is located approximately 4.8-5.2 cm above the level of the maureen. The tip of the enteric tube is not included within the cxipt-yy-pjka however is definitely infradiaphragmatic. Both lung issa are symmetrically expanded and appear clear. The cardiomediastinal silhouette is within normal limits. No significant change since prior study. IMPRESSION: The tip of the endotracheal tube is located approximately between 4.2-5.2 cm above the level of the maureen. Bilateral clear lung issa. This critical result was discussed with Marco Loya MD at 9:04 AM on 10/05/2016 and it was ascertained that the content and urgency of the report was understood at the time of direct communication.
--- NOTE | 2016-10-05 10:49 | PN- Neurology ---
Subjective Subjective: HPI: 41-year-old woman in the ICU, intubated, after a benzodiazepine overdose. Had persistently elevated urine benzodiazepine levels, which came down to 100 on October 03. She remains unresponsive, intubated. Her next of kin, which is her sister, is at her bedside. Review of Systems: Unobtainable Objective Vital Signs and I&Os Vital Signs Date Time Temp Pulse Resp B/P B/P Pulse O2 O2 Flow FiO2 Mean Ox Delivery Rate 10/05 0931 107 123/68 10/05 0843 25 10/05 0800 100 Ventilator 25% 10/05 0800 98.0 109 14 124/68 100 Ventilator 25% 10/05 0553 25 10/05 0400 98 Ventilator 25% 10/05 0313 25 10/05 0036 25 10/05 0000 100 Ventilator 25% 10/05 0000 99.8 104 14 124/70 100 Ventilator 25% 10/04 2232 25 10/04 2000 99 Ventilator 25% 10/04 1935 25 10/04 1600 98 Ventilator 25% 10/04 1600 100.1 106 14 130/70 98 Ventilator 25% 10/04 1550 25 10/04 1410 25 10/04 1300 100.2 110 14 111/67 98 Ventilator 25% 10/04 1236 25 10/04 1200 98 Ventilator 25% Intake & Output 10/05 1600 10/05 0800 10/05 0000 10/04 1600 10/04 0800 10/04 0000 Intake Total 422 053 3304 821 980 Output Total 424 411 3408 400 400 Balance 185 -30 -184 421 580 Intake, IV 250 130 390 100 220 Intake, Other 450 Intake, Tube 465 475 486 446 455 Feeding Intake, Tube 250 275 275 305 Irrigant Number 1 2 1 Bowel Movements Output, Urine 331 259 0723 400 400 Physical Exam: Intubated, comatose Pupils 2 mm, sluggishly reactive No gross papilledema on Limited funduscopic exam Roving eye movements Intact corneal reflexes Intact gag Intact oculocephalics Does not blink to visual threat Does not respond to voice or loud noise Does not visually track Does not follow verbal commands Does not withdraw purposefully to painful stimuli. Decerebrate posturing right arm more so than left. Left arm relatively flaccid Triple flexion reflex both lower extremities Current Medications: Current Medications Sig/Yaniv Start time Last Medication Dose Route Stop Time Status Admin Acetaminophen 1,000 MG .STK-MED ONE 10/04 1247 DC IV 10/04 1248 Acetaminophen 1,000 MG Q8P PRN 09/27 1845 AC 10/04 N/A 1 UNIT IV 0041 Albuterol Sulfate 3 ML BID 09/20 2200 AC 10/05 INH 0852 Ceftazidime 1,000 MG IQ8 10/04 1600 AC 10/05 IV 0744 Chlorhexidine 15 ML BID 10/02 1000 AC 10/05 Gluconate PO 0931 Enoxaparin Sodium 40 MG DAILY 09/21 1000 AC 10/05 SC 0930 Ibuprofen 600 MG Q6 PRN 10/03 2030 AC 10/03 PO 2131 Insulin Detemir 12 UNITS BID 10/03 220 AC 10/05 SC 0929 Insulin Human Regular 0 Q4H 10/01 1600 AC 10/05 SC 0744 Levetiracetam 1,000 MG Q12 09/26 2200 AC 10/05 N/A 1 UNIT IV 0926 Lisinopril 20 MG DAILY 09/30 1000 AC 10/05 PO 0931 Pantoprazole Sodium 40 MG BID 09/20 1000 AC 10/05 IV 0929 Polyethylene Glycol 17 GM DAILY PRN 10/04 0815 AC 10/04 PO 1017 Vancomycin HCl 1,000 MG Q12H 10/05 0100 AC 10/05 Sodium Chloride 250 ML IV 0006 Vancomycin HCl 1,000 MG Q12 10/04 1039 DC 10/04 Sodium Chloride 250 ML IV 1300 Zinc Oxide 1 GUY BID 09/24 220 AC 10/05 TOP 0931 Results Last 24 Hours of Lab Results: Laboratory Tests 10/05 0349 Chemistry Sodium (137 - 145 mmol/L) 140 Potassium (3.5 - 5.1 mmol/L) 4.6 Chloride (98 - 107 mmol/L) 99 Carbon Dioxide (22 - 30 mmol/L) 27 Anion Gap (5 - 16) 13 BUN (7 - 17 mg/dL) 14 Creatinine (0.5 - 1.0 mg/dL) 0.4 L Estimated GFR (>60 ml/min) > 60 Glucose (65 - 99 mg/dL) 217 H Calcium (8.4 - 10.2 mg/dL) 9.3 Phosphorus (2.5 - 4.5 mg/dL) 6.4 H Magnesium (1.6 - 2.3 mg/dL) 2.2 Total Bilirubin (0.2 - 1.3 mg/dL) 0.3 AST (14 - 36 U/L) 52 H ALT (9 - 52 U/L) 50 Albumin (3.5 - 5.0 g/dL) 3.4 L Hematology CBC w Diff NO MAN DIFF REQ WBC (4.8 - 10.8 /CUMM) 17.7 H RBC (4.20 - 5.40 /CUMM) 4.31 Hgb (12.0 - 16.0 G/DL) 11.6 L Hct (37 - 47 %) 35.5 L MCV (81.0 - 99.0 FL) 82.6 MCH (27.0 - 31.0 PG) 26.8 L RDW (11.5 - 14.5 %) 15.9 H Plt Count (130 - 400 /CUMM) 422 H MPV (7.4 - 10.4 FL) 10.9 H Gran % (42.2 - 75.2 %) 74.8 Lymphocytes % (20.5 - 51.1 %) 17.1 L Monocytes % (1.7 - 9.3 %) 5.5 Eosinophils % (0 - 5 %) 2.4 Basophils % (0.0 - 2.0 %) 0.2 Absolute Granulocytes (1.4 - 6.5 /CUMM) 13.3 H Absolute Lymphocytes (1.2 - 3.4 /CUMM) 3.0 Absolute Monocytes (0.10 - 0.60 /CUMM) 1.0 H Absolute Eosinophils (0.0 - 0.7 /CUMM) 0.4 Absolute Basophils (0.0 - 0.2 /CUMM) 0 PUBS MCHC (33.0 - 37.0 G/DL) 32.5 L Recent Imaging Studies: CT scans of the brain on 09/19/2016 and 09/26/2016 display loss of the normal expected zelaya- white differentiation between cortical and subcortical brain tissue. -EEG 09/21/16 Abnormal EEG due to diffuse background slowing suggestive of cerebral dysfunction with suggestive structural abnormality within the left frontotemporal region. No suggestion of subclinical seizures. -IV Protonix and daily oral care. -EEG 09/28/16 Abnormal EEG due to generalized slowing of the background rhythm consistent with diffuse cerebral dysfunction. No focal or epileptiform features were noted. Assessment/Plan Assessment: Day 16, severe anoxic brain injury in the setting of benzodiazepine overdose Remains comatose with intact brainstem reflexes Plan: Prognosis for regaining consciousness is poor This was discussed in detail with the patient's sister A move toward comfort measures should be considered
--- NOTE | 2016-10-05 11:19 | ECHOCARDIOGRAM REPORT ---
RO MELTON Age: 41 : 1975 Gender: F Exam Date: 10/04/2016 11:08 Exam Location: [facility] [place] Ht (in): 66 Wt (lb): 168 BSA: 1.90 BP: 162 / 83 Ordering Physician: Rebceca Alejandro MD Referring Physician: Rebecca Alejandro MD Technologist: Karina Ronquillo RDCS Room Number: 104 Indications: HYPOTENSION, INFECTIVE ENDOCARDITIS Rhythm: Sinus Technical Quality: Fair FINDINGS Left Ventricle Normal size left ventricle. Mild concentric left ventricular hypertrophy. No obvious regional wall motion abnormalities. Normal left ventricular ejection fraction visually estimated at 65%. Abnormal relaxation filling pattern of the left ventricle for age (stage 1 diastolic dysfunction). Right Ventricle Normal right ventricular size and function. Right Atrium Normal right atrial size. Left Atrium Normal left atrial size. Mitral Valve Mild mitral annular calcification. Structurally normal mitral valve. No evidence of vegetation on the mitral valve. No mitral regurgitation. Aortic Valve Probable trileaflet aortic valve. Mild aortic sclerosis. No evidence of vegetation on the aortic valve. No aortic valve stenosis or regurgitation. Tricuspid Valve Structurally normal tricuspid valve. No evidence of tricuspid valve vegetation. No tricuspid regurgitation. Unable to estimate the right ventricular systolic pressure. Pulmonic Valve Pulmonic valve not well visualized, grossly normal. No evidence of pulmonic valve vegetation. No pulmonic regurgitation. Pericardium No pericardial effusion. Great Vessels Normal size aortic root. Normal size inferior vena cava. CONCLUSIONS Normal size left ventricle. Mild concentric left ventricular hypertrophy. Normal left ventricular ejection fraction visually estimated at 65%. Abnormal relaxation filling pattern of the left ventricle for age (stage 1 diastolic dysfunction). Normal right ventricular size and function. Normal atrial size. No evidence of valvular vegetations. No evidence of valvular stenosis or regurgitation. Osiel Mckeon M.D. (Electronically Signed) Final Date: 05 Oct 2016 11:19 MEASUREMENTS (Male / Female) Normal Values 2D ECHO LV Diastolic Diameter PLAX 3.4 cm 4.2 - 5.9 / 3.9 - 5.3 cm LV Systolic Diameter PLAX 2.2 cm 2.1 - 4.0 cm LV Fractional Shortening PLAX 35.3 % 25 - 46 % LV Ejection Fraction 2D Teich 65.8 % IVS Diastolic Thickness 1.3 cm LVPW Diastolic Thickness 1.3 cm LV Relative Wall Thickness 0.8 RV Internal Dim ED PLAX 2.1 cm 1.9 - 3.8 cm LVOT Diameter 1.9 cm Aortic Root Diameter 2.4 cm LA Systolic Diameter LX 2.6 cm 3.0 - 4.0 / 2.7 - 3.8 cm LA Volume 24.0 cm 18 - 58 / 22 - 52 cm Ascending Aorta Diameter 3.1 cm DOPPLER AV Peak Velocity 139.0 cm/s AV Peak Gradient 7.7 mmHg AV Mean Velocity 100.0 cm/s AV Mean Gradient 5.0 mmHg AV Velocity Time Integral 20.1 cm LVOT Peak Velocity 118.0 cm/s LVOT Peak Gradient 5.6 mmHg LVOT Mean Velocity 80.2 cm/s LVOT Mean Gradient 3.0 mmHg LVOT Velocity Time Integral 18.0 cm LVOT Stroke Volume 51.0 cm AV Area Cont Eq vti 2.5 cm AV Area Cont Eq pk 2.4 cm MV Peak Velocity 112.0 cm/s MV Peak Gradient 5.0 mmHg MV Mean Velocity 62.5 cm/s MV Mean Gradient 2.0 mmHg Mitral E Point Velocity 59.2 cm/s Mitral A Point Velocity 74.5 cm/s Mitral E to A Ratio 0.8 MV PHT Velocity 91.2 cm/s MV Deceleration [place] 391.0 cm/s MV Pressure Half Time 70.0 ms MV Area PHT 3.1 cm MV Deceleration Time 132.0 ms PV Peak Velocity 113.0 cm/s PV Peak Gradient 5.1 mmHg PV Mean Velocity 76.7 cm/s PV Mean Gradient 3.0 mmHg PV Velocity Time Integral 18.6 cm LV E' Lateral Velocity 7.6 cm/s Mitral E to LV E' Lateral Ratio 7.8 LV E' Septal Velocity 7.2 cm/s Mitral E to LV E' Septal Ratio 8.2
[2016-10-05 12:00] VITALS: BP 132/76
--- NOTE | 2016-10-05 13:27 | NUR ---
[facility] NOTIFIED OF PTS STATUS AND POC FOR TERMINAL EXTUBATION. SPOKE WITH ROBIN, CASE REFERENCE NUMBER IS [id number]. PT IS DENIED AT THIS TIME.
--- NOTE | 2016-10-05 13:35 | PN- Pulmonary ---
Subjective HPI/Critical Care Issues: DOing poorly still has no sig signs of improvement She remains unresponsive, intubated. Her next of kin, which is her sister, is at her bedside. Review of Systems: Unobtainable Objective Current Medications: Current Medications Sig/Yaniv Start time Last Medication Dose Route Stop Time Status Admin Acetaminophen 1,000 MG Q8P PRN 09/27 1845 AC 10/04 N/A 1 UNIT IV 0041 Albuterol Sulfate 3 ML BID 09/20 2200 AC 10/05 INH 0852 Ceftazidime 1,000 MG IQ8 10/04 1600 AC 10/05 IV 0744 Chlorhexidine 15 ML BID 10/02 1000 AC 10/05 Gluconate PO 0931 Enoxaparin Sodium 40 MG DAILY 09/21 1000 AC 10/05 SC 0930 Ibuprofen 600 MG Q6 PRN 10/03 2030 AC 10/03 PO 2131 Insulin Detemir 12 UNITS BID 10/03 2200 AC 10/05 SC 0929 Insulin Human Regular 0 Q4H 10/01 1600 AC 10/05 SC 1217 Levetiracetam 1,000 MG Q12 09/26 2200 AC 10/05 N/A 1 UNIT IV 0926 Lisinopril 20 MG DAILY 09/30 1000 AC 10/05 PO 0931 Methylprednisolone 40 MG ONCE ONE 10/05 1330 UNVr IV 10/05 1331 Pantoprazole Sodium 40 MG BID 09/20 1000 AC 10/05 IV 0929 Polyethylene Glycol 17 GM DAILY PRN 10/04 0815 AC 10/04 PO 1017 Scopolamine HBr 1 PAT ONE ONE 10/05 1330 UNVr TOP 10/05 1331 Vancomycin HCl 1,000 MG Q12H 10/05 0100 AC 10/05 Sodium Chloride 250 ML IV 1217 Vancomycin HCl 1,000 MG Q12 10/04 1039 DC 10/04 Sodium Chloride 250 ML IV 1300 Zinc Oxide 1 GUY BID 09/24 2200 AC 10/05 TOP 0931 Vital Signs & I&O Last 24 Hrs of Vitals and I&O: Vital Signs Date Time Temp Pulse Resp B/P B/P Pulse O2 O2 Flow FiO2 Mean Ox Delivery Rate 10/05 1200 99 Ventilator 25% 10/05 1200 97.8 109 14 132/76 99 Ventilator 25% 10/05 1117 25 10/05 0931 107 123/68 10/05 0843 25 10/05 0800 100 Ventilator 25% 10/05 0800 98.0 109 14 124/68 100 Ventilator 25% 10/05 0553 25 10/05 0400 98 Ventilator 25% 10/05 0313 25 10/05 0036 25 05 0000 100 Ventilator 25% 05 0000 99.8 104 14 124/70 100 Ventilator 25% 10/04 2232 25 05 2000 99 Ventilator 25% 10/04 1935 25 10/04 1600 98 Ventilator 25% 10/04 1600 100.1 106 14 130/70 98 Ventilator 25% 10/04 1550 25 10/04 1410 25 Intake & Output 10/05 1600 10/05 0800 05 0000 Intake Total 965 880 Output Total 780 910 Balance 185 -30 Intake, IV 250 130 Intake, Tube 465 475 Feeding Intake, Tube 250 275 Irrigant Output, Urine 780 910 Impression/Plan Impression/Plan Impression/Plan: General Appearance: intubated Head: atraumatic, normal appearance Neck: normal inspection Respiratory: lungs clear Cardiovascular: regular rate/rhythm Gastrointestinal: normal bowel sounds, soft, non-tender Extremities: normal inspection, normal capillary refill, no edema Cranial Nerves: dilated pupil, gag present has at times decorticate posture Skin: intact, normal color, warm/dry Urine tox noted still has benzo onboard Cxr nil acute IMPRESSION This is a lady with multiple medical problems including diabetes, complications from diabetes including gastroparesis per history, but pressure history, chronic low back pain, migraine, urinary incontinence, GERD, narcotic use and benzodiazepine use followed by pain Center per the history noted in the house staff's note now comes in with * Anoxic brain injury - Significant decreased mental status with comatose condition with profound hypoglycemia now with significant anoxic brain injury as noted in the CAT scan and physical exam. Patient did not really respond to Narcan. Differential diagnoses include hypoglycemia from her diabetes medication versus benzodiazepine overdose versus narcotic overdose intentionally on a nonintentional is unknown at this time. Vomiting with aspiration pneumonia leading to hypoxic brain injury as well as a possibility * Respiratory failure related to severe anoxic brain injury * Resolving High fever related to brain stem issues prob, now has leukocytosis * Sig vasomotor instablity prob due to brain stem issues * Significant vomiting upon admission or prior to admission with aspiration pneumonitis now with ecoli * History of diabetes, hypertension, significant hypokalemia, gastroparesis * Previous history of low back pain and depression * 14 mm bony lesion and T5 vertebral body which needs to be followed in the future * History of sig narcotic use * Significant history of gastroparesis now with the coffee ground * Benzo still high in the blood * Now with colonization with gram neg organism REC Discussed with the sister Next of kin Comfort care discussed and the patients family per her previous wishes want to extubate the patient for comfort WIll extubate solumedrol one dose scopalamine patch Prn morphine for dyspnea Use prn ativan for seizure dc tube feeding and empty stomach before extubation no ivf or tube feedings Ok to the floor with hospice in am Neuro note noted and appretiated
--- NOTE | 2016-10-05 13:47 | NUR ---
PATIENT CHANGED TO COMFORT CARE, TUBE FEED STOPPED AT THIS TIME. OGT SET TO LOW WALL SUCTION TO DRAIN TUBE FEED FROM STOMACH PRIOR TO EXTUBATION. PATIENTS SISTER AT BEDSIDE.
--- NOTE | 2016-10-05 13:57 | Cons- Infect Disease ---
General Information and HPI Consulting Request Date of Consult: 10/05/16 Requested By: MINA FENG MD Reason for Consult: Persistent fevers and leukocytosis Source of Information: family Exam Limitations: clinical condition History of Present Illness: This is a 41-year-old woman with a history of diabetes, with gastroparesis, chronic back pain, maintained on opiates and benzodiazepines, with a two-week history of vomiting prior to admission, admitted on September 19 after she was found at home unresponsive, covered with vomitus. On arrival to the emergency room she was afebrile, with an O2 sat of 78% on room air, requiring intubation. Laboratory data revealed a white blood cell count of 33,000, BUN/creatinine 9 and 0.5, potassium 3.0. Urine tox screen was positive for benzos and opiates/ morphine. Urinalysis 3-5 RBC/1-[address] of the head revealed diffuse loss of pablo-white matter differentiation and diffuse sulcal effacement within both cerebral hemispheres, concerning for global anoxic brain injury. CT of the chest revealed diffuse bilateral multilobar pulmonary airspace disease. CT of the abdomen and pelvis was negative for any acute process. She was begun on Unasyn for presumed aspiration, which was continued until September 25, at which point she remained afebrile, white blood cell count had normalized and chest x-ray was markedly improved. On September 27 she developed fevers with increasing white blood cell count. She was empirically begun on Vancomycin and Ceftazidime, which was changed to Ceftriaxone on September 30 after sputum culture was positive for Escherichia coli, though her chest x-ray remained normal. She has remained febrile and white blood cell count has been increasing. On October 04 she was empirically changed to Vancomycin and Ceftazidime. This morning her sputum culture is positive for ESBL producing Klebsiella. She has remained unresponsive. Her urine tox screen has remained positive for benzos until yesterday. She has been followed by Neurology and discussion regarding comfort measures has been underway. Allergies/Medications Allergies: Coded Allergies: ciprofloxacin (From CIPRO) (UNKNOWN 09/19/16) Home Med List: Unable to Obtain Home Medication History Past History Travel History Traveled to [place] past 21 day No Medical History Cardiovascular: hypertension Gastrointestinal: GERD, GASTROPARESIS Renal: URINARY INCONTINENCE Musculoskeletal: CHRONIC LOWER BACK PAIN Endocrine: diabetes History of MRSA: No History of VRE: No History of CDIFF: No Isolation History: Standard Surgical History Surgical History: laminectomy Psychosocial History Where Do You Live? Home Smoking Status: Current Everyday Smoker Review of Systems Comments Unobtainable Exam & Diagnostic Data Last 24 Hrs of Vital Signs/I&O Vital Signs Date Time Temp Pulse Resp B/P B/P Pulse O2 O2 Flow FiO2 Mean Ox Delivery Rate 10/05 1200 99 Ventilator 25% 10/05 1200 97.8 109 14 132/76 99 Ventilator 25% 10/05 1117 25 10/05 0931 107 123/68 10/05 0843 25 10/05 0800 100 Ventilator 25% 10/05 0800 98.0 109 14 124/68 100 Ventilator 25% 10/05 0553 25 10/05 0400 98 Ventilator 25% 10/05 0313 25 10/05 0036 25 10/05 0000 100 Ventilator 25% 10/05 0000 99.8 104 14 124/70 100 Ventilator 25% 10/04 2232 25 10/04 2000 99 Ventilator 25% 10/04 1935 25 10/04 1600 98 Ventilator 25% 10/04 1600 100.1 106 14 130/70 98 Ventilator 25% 10/04 1550 25 10/04 1410 25 Intake & Output 10/05 1600 / 0800 10/05 0000 Intake Total 965 880 Output Total 780 910 Balance 185 -30 Intake, IV 250 130 Intake, Tube 465 475 Feeding Intake, Tube 250 275 Irrigant Output, Urine 780 910 Physical Exam Other Physical Findings: She is unresponsive on the ventilator. MAXIMUM TEMPERATURE 100.2. Skin reveals no rash. HEENT exam is negative. Neck is supple with no adenopathy. Lungs are clear. Heart regular rhythm with no murmur. Abdomen is soft, nontender with positive bowel sounds. Back no CVA tenderness. Extremities no cyanosis, clubbing or edema. Neuro is without focality. Ho catheter is in place. Last 24 Hours of Lab Results: Laboratory Tests 10/05 0349 Chemistry Sodium (137 - 145 mmol/L) 140 Potassium (3.5 - 5.1 mmol/L) 4.6 Chloride (98 - 107 mmol/L) 99 Carbon Dioxide (22 - 30 mmol/L) 27 Anion Gap (5 - 16) 13 BUN (7 - 17 mg/dL) 14 Creatinine (0.5 - 1.0 mg/dL) 0.4 L Estimated GFR (>60 ml/min) > 60 Glucose (65 - 99 mg/dL) 217 H Calcium (8.4 - 10.2 mg/dL) 9.3 Phosphorus (2.5 - 4.5 mg/dL) 6.4 H Magnesium (1.6 - 2.3 mg/dL) 2.2 Total Bilirubin (0.2 - 1.3 mg/dL) 0.3 AST (14 - 36 U/L) 52 H ALT (9 - 52 U/L) 50 Albumin (3.5 - 5.0 g/dL) 3.4 L Hematology CBC w Diff NO MAN DIFF REQ WBC (4.8 - 10.8 /CUMM) 17.7 H RBC (4.20 - 5.40 /CUMM) 4.31 Hgb (12.0 - 16.0 G/DL) 11.6 L Hct (37 - 47 %) 35.5 L MCV (81.0 - 99.0 FL) 82.6 MCH (27.0 - 31.0 PG) 26.8 L RDW (11.5 - 14.5 %) 15.9 H Plt Count (130 - 400 /CUMM) 422 H MPV (7.4 - 10.4 FL) 10.9 H Gran % (42.2 - 75.2 %) 74.8 Lymphocytes % (20.5 - 51.1 %) 17.1 L Monocytes % (1.7 - 9.3 %) 5.5 Eosinophils % (0 - 5 %) 2.4 Basophils % (0.0 - 2.0 %) 0.2 Absolute Granulocytes (1.4 - 6.5 /CUMM) 13.3 H Absolute Lymphocytes (1.2 - 3.4 /CUMM) 3.0 Absolute Monocytes (0.10 - 0.60 /CUMM) 1.0 H Absolute Eosinophils (0.0 - 0.7 /CUMM) 0.4 Absolute Basophils (0.0 - 0.2 /CUMM) 0 PUBS MCHC (33.0 - 37.0 G/DL) 32.5 L Last 24 Hours of Ernst Results: Blood cultures October 03 negative Urine culture October 03 greater than 100,000 colonies of yeast Sputum culture October 03 positive for diphtheroids and ESBL producing Klebsiella Diagnostic Data Recent Imaging Findings: Chest x-ray October 05 negative Assessment/Plan Assessment/Plan Impression: This is a 41-year-old woman with diabetes, gastroparesis and chronic pain, maintained on opiates and benzodiazepines, admitted on September 19 after she was found unresponsive at home, laying in her vomitus, found initially to be afebrile with a marked leukocytosis and with a CT scan of the head suggesting anoxic brain injury, treated empirically for aspiration pneumonia with improvement in her white blood cell count and chest x-ray, but with development of fevers and increasing white blood cell count, with sputum culture positive for Escherichia coli, treated with another course of antibiotics without improvement in her fevers or leukocytosis, now with sputum culture positive for ESBL producing Klebsiella. Suspect this may represent colonization as her chest x-ray is negative, and her fevers may be central in origin. Discussion regarding change to comfort measures as noted, as her neurologic status has not improved despite the clearing of her urine for benzodiazepines. Suggestion: 1. Await decision regarding comfort measures 2. Discontinue Vancomycin and Ceftazidime and follow off antibiotics pending above Consult Acknowledgment - Thank you for your consult request.
--- NOTE | 2016-10-05 14:52 | NUR ---
PATIENT PRE MEDICATED FOR EXTUBATION.
[2016-10-05 16:00] VITALS: BP 120/78
--- NOTE | 2016-10-05 19:25 | NUR ---
PATIENT WAS STARTED ON A MORPHINE GTT AT 2MG/HR 1:1 CONCENTRATION. RESPIRTATORY RATE 40'S BEFORE GTT INITIATED, 20'S AFTER GTT INITIATED, PATIENT ALSO RECEIVED IV ATIVAN. SISTER REMAINS AT BEDSIDE, SEE EMAR FOR MEDICATION ADMINISTRATION. WILL MONITOR.
--- NOTE | 2016-10-05 20:30 | NUR ---
LATE ENTRY: PATIENT WAS EXTUBATED WITH RT KELECHI AND THIS RN AT BEDSIDE. MORPHINE GIVEN PRE EXTUBATION. 2L NC PLACED S/P EXTUBATION. INCREASED WORK OF BREATHING NOTED. IV MORPHINE AND ATIVAN GIVEN, SEE EMAR. SISTER REMAINS AT BEDSIDE, ORAL SUCTIONING COMPLETED FOR LARGE AMOUNTS OF ORAL SECRETIONS.
--- NOTE | 2016-10-05 21:36 | NUR ---
PT UNRESPONSIVE TO VERBAL AND TACTILE STMULI. PT COMFORT MEASURES. ON MORPHINE GTT AT 2MG/HR WHEN RECEIVED PT-PT WITH LABORED BREATHING-INCREASED TO 3MG/HR AT 2100 ORDER. ATIVAN 1MG IV Q1 PRN-SEE EMAR FOR ADMINISTATION. BREATH SOUNDS WITH SCATTERED EXP WHEEZES NOTED. CRAMER IN PLACE-DRAINING CLEAR YELLOW URINE. SKIN INTACT. SISTER ALCIE STAYING WITH PT OVERNIGHT-SUPPORTIVE OF PT
--- NOTE | 2016-10-05 23:26 | NUR ---
PT TRANSPORTED TO VIA BED-CRAMER IN PLACE, MORPHINE GTT AT 3MG/HR
[2016-10-06 00:02] VITALS: BP 100/64
[2016-10-06 06:46] VITALS: BP 104/62
--- NOTE | 2016-10-06 14:44 | Discharge Summary ---
See Addendum Visit Information Visit Dates Admission Date: 09/19/16 Discharge Date: 10/06/16 Hospital Course Course Attending Physician: MINA FENG MD Primary Care Physician: IMAN MIRZA,[place] Hospital Course: Ms. Bowen is 41 year old female with past medical history significant for diabetes mellitus uncontrolled complicated with gastroparesis, uncontrolled hypertension, chronic low back pain on chronic opioid and benzo status post laminectomy L3L5, migraine, depression, urinary incontinence, GERD. Patient was found by EMS unresponsiveness after an episide of intractable vomiting. Vitals on arrival afebrile, HR 120, RR 16, blood pressure 168/77, O2 saturation 76% on room air. On exam: Sluggishly reactive midsize pupil, no response to deep pain, CVS: S1-S2 , RRR, tachycardia, RS: Coarse breathing sounds bilaterally, abdomen: Soft, nondistended, bowel sounds present. Patient was incontinent on arrival, Ho was placed, no trauma, mild redness on sacral area, multiple scar torres on chest probably secondary to healed abscesses. 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 -Patient was found unresponsive, had limited response to Narcan, CT head revealed decreased pablo-white matter differentiation, patient was intubated. Patient was evaluated by neurology, had poor prognosis given results of CT head and EEGs. Urine was initially positive for opiates and benzodiazepine, repeated urine tox consistently revealed high benzodiazepines concentration for two weeks , quantitative benzodiazepine level where obtained that revealed high benzo metabolized levels, finally on 10/04 decreased to 145. Patient remined unresponsive, goal of care discussion underwent, CODE STATUS was changed to comfort care measure, patient was terminally extubated. CT head without contrast 09/26 IMPRESSION: 1. No acute intracranial hemorrhage. 2. Again noted is decreased tjix-fmmys-cyfyo matter differentiation of the cerebral hemispheres. Also, there is decreased attenuation of basal ganglia as may be seen in hypoxic-ischemic brain injury. CT head without contrast on admission 09/19 IMPRESSION: Diffuse loss of pablo-white matter differentiation and diffuse sulcal effacement within the bilateral cerebral hemispheres, concerning for global anoxic brain injury. No acute intracranial hemorrhage, mass or mass effect or abnormal extra- axial fluid collections. -EEG 09/21/16 Abnormal EEG due to diffuse background slowing suggestive of cerebral dysfunction with suggestive structural abnormality within the left frontotemporal region. No suggestion of subclinical seizures. -IV Protonix and daily oral care. -EEG 09/28/16 Abnormal EEG due to generalized slowing of the background rhythm consistent with diffuse cerebral dysfunction. No focal or epileptiform features were noted. #Brief seizure -Patient has history of seizure on Keppra. No active seizure activity was reported during hospital stay. #Acute hypoxic respiratory failure secondary to anoxic brain injury. -Patient was intubated in ED, ABG and chest x-ray were obtained on regular basis. #Aspiration pneumonia -Patient was initially treated for aspiration pneumonia with Unasyn, was discontinued given negative culture. She started to have spikes of fever that thought to be either related to aspiration pneumonia or brainstem dysfunction, blood culture remained negative, another course of antibiotic vancomycin and ceftaz was started that eventually switched to ceftriaxone given culture results. Patient continued to have spikes of fever despite antibiotic treatment , repeated sputum culture was positive for ESBL producing Klebsiella, antibiotic was switched back to vancomycin and ceftaz. ID consultation was obtained. Other sources of fever were investigated including DVT and abdominal, pelvic source of infection, all negative. Echocardiogram was obtained to role out infective endocrditis. #History of diabetes. -Patient has history of uncontrolled diabetes, was maintained on NovoLog sliding scale and Levemir continued at 12 U SC BID. #Hypertension -Lisinopril 20 mg PO daily was started #Transaminitis -Mildly elevated liver function test, improved over time. #DVT prophylaxis -ALPS, Lovenox #Diet -Tube feeding was initiated, nutrition consultation was obtained. 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
== END 2016-10-06 12:21 | disposition hospice, home (50) | DRG 917 ==
LOC: ERH 19:52 → CRI 22:03 → 2NA 22:03 → ERHI 22:03 → CRI 23:57 → 2NA 10-05 23:29
PROVIDERS: Emergency Medicine; Internal Medicine; Ophthalmology; Student in an Organized Health Care Education/Training Program; ADMIT Internal Medicine
PROC: 0BH17EZ Insertion of Endotracheal Airway into Trachea, Via Natural or Artificial Opening (ICD-10-PCS; principal; 2016-09-19)
PROC: 5A1955Z Respiratory Ventilation, Greater than 96 Consecutive Hours (ICD-10-PCS; 2016-09-19)
DX: T40.2X1A Poisoning by other opioids, accidental (unintentional), initial encounter (principal); J69.0 Pneumonitis due to inhalation of food and vomit; R40.20 Unspecified coma; J96.00 Acute respiratory failure, unspecified whether with hypoxia or hypercapnia; G93.1 Anoxic brain damage, not elsewhere classified; K31.84 Gastroparesis; E11.43 Type 2 diabetes mellitus with diabetic autonomic (poly)neuropathy; Z51.5 Encounter for palliative care; Z79.4 Long term (current) use of insulin; I10 Essential (primary) hypertension; E87.6 Hypokalemia; F17.200 Nicotine dependence, unspecified, uncomplicated; F32.9 Major depressive disorder, single episode, unspecified
CPT/HCPCS: 2NAP; 87184; CCU; 36415; 74176; 80307; 81001; 82436; 87040; 87070; 87086; 87088; 87147; 93005; 93010; 93306; 93970; 94799; 95816; 96374; 96375; 99291; G0480; J0131; J0360; J0696; J0713; J1650; J1815; J1885; J1953; J2270; J2310; J2920; J3370; J7040; J7042; J7060

== ENCOUNTER 2016-10-06 12:22 | Inpatient (IN) | payer OTHER ==
--- NOTE | 2016-10-06 14:26 | History & Physical ---
KIERA CROWCLINTON 10/06/16 1319: General Information and HPI Chief Complaint: admit to hospice Source of Information: old records Exam Limitations: unable to give history, not alert/orientated Associated Symptoms: labored respirations History of Present Illness: 41-year-old female with past history of diabetes, gastroparesis, chronic back pain maintained on opiates and benodiazepines brought to the hospital September 19 after she was found unresponsive at home, covered in vomitus. She had 2-week history of vomiting prior to admission. She had received Narcan with no response, glucose was 25 and O2 sat was 78% and pt was intubated.She had persistently elevated benzodiazepine levels during hospitalization, which came down to 100 on 10/03/16. She was seen by infectious disease who noted that pt had been treated for presumed aspiration, developed fevers and leukocytosis off antibiotics, sputum culture grew e. coli though CXR remained normal and she was restarted on antibiotics, she has remained febrile (until 10/04/16) with increasing white count on antibiotics. Neurology notes indicate severe anoxic brain injury, in setting of benzodiazepine overdose-pt remains comatose with brainstem reflexes. Her prognosis for regaining consciousness was deemed poor and her next-of-kin, her sister, made decision for comfort care. Pt was extubated yesterday, started on a morphine drip and now is being admitted to hospice care. 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 Sister, Jennifer, is next-of-kin. No children. Functional Ability: Lived with significant other, was current smoker, no alcohol use. Review of Systems Review of Systems Constitutional: Reports: see HPI (unable to obtain from pt). Exam & Diagnostic Data Last 24 Hrs of Vital Signs/I&O T-98.3, HR-66, RR-18, BP-104/62 O2 sat 95% on 2lnp Physical Exam General Appearance Mild Distress, eyes closed, abdominal breathing HEENT Atraumatic, Mucous Membr. moist/pink Cardiovascular Regular Rate, Normal S1, Normal S2, No Murmurs Lungs decreased breath sounds, RR-24 with abdominal breathing Abdomen Soft, No Tenderness Neurological unresponsive to verbal/tactile response Extremities No Clubbing, No Cyanosis, No Edema, Normal Pulses Last 24 Hrs of Labs/Ernst: Notable on admission for WBC 32.8, Hgb 18.2, HCT 56.5, lactic acid 3.9, urine benzo >800, opiate >4000. Diagnostic Data CXR Results 10/05/16:The tip of the endotracheal tube is located approximately between 4.2- 5.2 cm above the level of the maureen. Bilateral clear lung issa. This critical result was discussed with Marco Loya MD at 9:04 AM on 10/05/2016 and it was ascertained that the content and urgency of the report was understood at the time of direct communication. Other Results 09/26/[address]:IMPRESSION: 1. No acute intracranial hemorrhage. 2. Again noted is decreased gesy-gfgwa-yzqes matter differentiation of the cerebral hemispheres. Also, there is decreased attenuation of basal ganglia -- as may be seen in hypoxic-ischemic brain injury. Assessment/Plan Assessment: This is an unfortunate 41-year-old female with anoxic brain injury from hypoxic respiratory failure requiring intubation due to overdose of benzodiazepines, who is now admitted to hospice care. Plan: Continue morphine drip at 3mg/hr, add titration protocol Start scheduled ativan 1mg IV every 4 hrs and every 2 hours as needed for anxiety. Currently pt with labored respirations; discussed with nursing who is going to give ativan and titrate morphine as necessary to obtain comfort and RR<20. Continue scopolamine patch and add Robinul 400mcg every 4 hrs as needed for secretions.
--- NOTE | 2016-10-06 16:00 | NUR ---
PT RESTING IN BED, UNRESPONSIVE. RR 18-20. ORAL CONGESTION NOTED, ATTEMPTED TO SUCTION PTS MOUTH. LAYING ON R SIDE. PT PLACED ON SIZEWISE MATTRESS. CRAMER DRAINING TO GRAVITY. BLISTER TO L BUTTOCK WITH DUODERM IN PLACE. TURNED & REPOSITIONED. ORAL & SKIN CARE PROVIDED. NO FAMILY PRESENT. 2LNC IN PLACE. KAYLYN CONTINUE TO MONITOR.
--- NOTE | 2016-10-06 17:19 | NUR ---
PT MADE HOSPICE THIS AFTERNOON. UNRESPONSIVE AT THIS TIME. RR 18-20 ON 2LNC, RONCHI NOTED IN BILATERAL LUNG CHAVEZ. ABD DISTENDED AND SOFT. CRAMER PRESENT. SMALL BLISTER TO L BUTTOCK WITH DUODERM IN PLACE. #22 IV IN LFA WITH MORPHINE GTT RUNNING AT 3MG/HR. FAMILY AT BEDSIDE, EMOTIONAL SUPPORT GIVEN. SIZEWISE MATTRESS ORDERED. WILL CONTINUE TO MONITOR.
--- NOTE | 2016-10-06 23:00 | NUR ---
LATE ENTRY NURSING NOTE: PT AXILARY TEMP 103.0 - 650MG TYLENOL SUPP ADMINISTERD BY THIS RN.
--- NOTE | 2016-10-06 23:00 | NUR ---
LATE ENTRY NURSING NOTE: PER ORDER, PT WAS BOLUSED WITH 100% BASAL RATE (3MG) MORPHINE WITHOUT DECREASE IN RR. RR REMAINS AT 40. MORPHINE RATE INCREASED TO 6 ML/HR AT 1:1 CONCENTRATION. MD PARKER AWARE. ORDER FAXED TO PHARMACY. RN WILL CONTINUE TO MONITOR.
--- NOTE | 2016-10-07 01:00 | NUR ---
LATE ENTRY NURSING NOTE: AT 0030, RR REMAINED AT 40. 6MG MORPHINE BOLUS ADMINISTERED. RN WILL CONTINUE TO MONITOR.
--- NOTE | 2016-10-07 02:42 | NUR ---
NURSING NOTE: PT ENTERED ROOM @ 0215 TO ADMINISTERED SCHEDULED ATIVAN. ABSCENT SPONTANEOUS RESPIRATIONS, PUPILS NON REACTIVE TO LIGHT, NO AUDIBLE HEART SOUNDS FOR 60 SECONDS. NONRESPONSIVE TO STIMULI. RN CIGAR BANDER KARYN NOTIFIED. MD ELENA TAPIA. MANDI IN ADMITTING NOTIFIED. JIMENEZ @ [facility] NOTIFIED. AWAITING CALL FROM [facility]. BELINDA KOLB NOTIFIED FAMILY. SISTER WILL REPORT TO [facility] IN AM TO SPEAK WITH LINDY REGARDING ARRANGEMENTS FOR RELSEA OF BODY.
--- NOTE | 2016-10-07 15:02 | Discharge Summary ---
Visit Information Visit Dates Admission Date: 10/06/16 Discharge Date: 10/07/16 Hospital Course Course Attending Physician: MEGHANA COLBERT MD Primary Care Physician: BARBARA VALERIO MD Hospital Course: This is an unfortunate 41-year-old female with anoxic brain injury from hypoxic respiratory failure requiring intubation due to overdose of benzodiazepines, admitted to hospice care. She was kept comfortable on a morphine drip with scheduled ativan until she passed peacefully. Allergies: Coded Allergies: ciprofloxacin (From CIPRO) (UNKNOWN 09/19/16) Disposition Summary Disposition Principal Diagnosis: Acute hypoxic Respiratory failure Anoxic Brain Injury Benzodiazepine overdose, intention unknown Additional Diagnosis: diabetes Mellitus Discharge Disposition: Discharge Instructions General Discharge Information Code Status: Hospice Patient's Diet: N/A Patient's Activity: N/A Follow-Up Instructions/Appts: N/A Copies To: BARBARA VALERIO MD Attending MD Review Statement Documenting Attending: MEGHANA COLBERT MD Other Findings: Agree with above summary. certificate signed.
== END 2016-10-07 02:20 | disposition expired | DRG 91 ==
LOC: 2NA 12:22
PROVIDERS: ADMIT Internal Medicine
DX: G93.1 Anoxic brain damage, not elsewhere classified (principal); J96.01 Acute respiratory failure with hypoxia; Z51.5 Encounter for palliative care; E11.9 Type 2 diabetes mellitus without complications
CPT/HCPCS: J2270